=== PATIENT | female | born 1950 | race Caucasian/White ===

== ENCOUNTER → 2016-09-02 | Outpatient (CLI) | payer MEDICARE ==
[~2016-09-02] MED LIST: /ONDA4TA OR; /WARF25TA OR; ACET65TA OR; CELE1CAP7; COMB0.2S OP; MULTIVIT PO; OMEP20TA7 OR; PANT40TA2 PO; PERC5TAB8 OR; PERC7.5T8 OR; ZOCO40TA OR
--- NOTE | 2016-09-02 11:23 | REPMRS ---
Patient History The patient states she had a clinical breast exam in 08/2016. Patient is postmenopausal. Family history of prostate cancer in father at age 50 or over, colorectal cancer in 2 brothers at age 50 or over, and prostate cancer in 2 other brothers at age 50 or over. Took estrogen for 3 years. Digital Woman Screen Mammo: September 02, 2016 - Exam #: [id number] Bilateral CC and MLO view(s) were taken. Technologist: Debbie Daniel Technologist Prior study comparison: August 12, 2015, digital woman screen mammo performed at [facility]. June 11, 2014, digital woman screen mammo performed at [facility]. June 19, 2013, digital woman screen mammo performed at [facility]. FINDINGS: The breast tissue is almost entirely fat. There has been no change in the appearance of the mammogram from the prior studies. There is no interval development of dominant mass, architectural distortion, or clustered microcalcification typical of malignancy. ASSESSMENT: BI-RADS/ACR category 1 mammogram. Negative. Recommendation Routine screening mammogram of both breasts in 1 year (for women over age 40). This mammogram was interpreted with the aid of an FDA-approved computer-aided dectection system. Electronically Signed By: Dakota Newman MD 09/02/16 [id number]
== END ==
LOC: M WHC 09:51
PROVIDERS: ATTEND Nurse Practitioner Family
DX: Z12.31 Encounter for screening mammogram for malignant neoplasm of breast (principal); Z78.0 Asymptomatic menopausal state; Z80.42 Family history of malignant neoplasm of prostate

== ENCOUNTER → 2016-09-02 | Outpatient (CLI) | payer MEDICARE ==
--- NOTE | 2016-09-05 09:06 | DEXA ---
AP SPINE L1 - L4 1.682 3.9 4.8 LT FEMUR TOTAL 0.939 -0.5 0.2 RT FEMUR TOTAL 0.990 -0.1 0.6 TOTAL BODY TOTAL OTHER DUAL FEMUR FRAX* ASSESSMENT Risk factors: None. 10 year probability of fracture Major osteoporotic fracture 7.8 % Hip fracture 0.7 % COMMENTS: Normal bone densitometry of the spine. There is low bone density of the hips. There is degenerative change in the spine which may artificially elevate the BMD. The density of the spine has increased 21.5% since the initial exam on 2002. The spine density has increased 2.6% since the most recent exam on 06/19/2013. The density of the left hip has decreased 3.4% since the initial exam on 2012. The density of the right hip has increased 0.3% since the initial exam on 2012. FOLLOW-UP: Recommendation for the next bone density exam: 2 years. DANIELLE
== END ==
LOC: M WHC 10:03
PROVIDERS: ATTEND Internal Medicine
DX: Z12.31 Encounter for screening mammogram for malignant neoplasm of breast (principal); M85.80 Other specified disorders of bone density and structure, unspecified site; Z78.0 Asymptomatic menopausal state; Z80.42 Family history of malignant neoplasm of prostate
CPT/HCPCS: 77080; G0202

== ENCOUNTER → 2016-11-14 | Outpatient (REF) | payer MEDICARE | LOC: M LAB REF 20:01 | PROVIDERS: ATTEND Physician Assistant | DX: S33.5XXA Sprain of ligaments of lumbar spine, initial encounter (principal); X58.XXXA Exposure to other specified factors, initial encounter; Y92.9 Unspecified place or not applicable; Y93.9 Activity, unspecified; Y99.9 Unspecified external cause status ==

== ENCOUNTER → 2016-12-21 | Outpatient (REF) | payer MEDICARE | LOC: M LAB REF 09:06 | PROVIDERS: ATTEND Physician Assistant | DX: R30.0 Dysuria (principal) ==

== ENCOUNTER 2017-04-13 14:33 | Emergency (ER) | payer MEDICARE ==
[~2017-04-13] VITALS: Ht 149.9 cm; Wt 79.5 kg
[2017-04-13] MEDS ORDERED: ACET-645 (14:42)
[2017-04-13] MEDS ORDERED: BIMA01SOL (14:42)
[2017-04-13] MEDS ORDERED: CELE1CAP9 (14:42)
[2017-04-13] MEDS ORDERED: PERCOCET 5MG/325MG TAB PO ONE (17:15)
--- NOTE | 2017-04-13 18:03 | REP ---
REASON: Pain and swelling. TECHNIQUE: Multiple ultrasonographic images of the deep venous structures of the left thigh were obtained from the common femoral vein to the popliteal vein along with Doppler interrogation and color flow Doppler images. FINDINGS: There is no abnormal echogenic material seen within any of the visualized deep venous structures that would suggest acute thrombosis. Coaptation is unremarkable throughout. Doppler interrogation shows an expected response to respiratory variability and augmentation. The color flow images show what appears to be a normal vascular pattern throughout. IMPRESSION: There is no ultrasonographic evidence of deep venous thrombosis involving any of the visualized deep venous structures of the left thigh, as described above. Signed by Burton France DO 04/13/2017 07:54 P
[2017-04-13 18:39] VITALS: BP 157/89
== END 2017-04-13 18:50 | disposition home or self-care (01) ==
LOC: M ED 14:33
DX: M25.562 Pain in left knee (principal); E78.5 Hyperlipidemia, unspecified; K57.90 Diverticulosis of intestine, part unspecified, without perforation or abscess without bleeding; K44.9 Diaphragmatic hernia without obstruction or gangrene; Z87.442 Personal history of urinary calculi; K21.9 Gastro-esophageal reflux disease without esophagitis; M48.00 Spinal stenosis, site unspecified; Z79.899 Other long term (current) drug therapy

== ENCOUNTER → 2017-07-01 | Outpatient (REF) | payer MEDICARE | LOC: M LAB REF 19:28 | DX: J02.9 Acute pharyngitis, unspecified (principal) | CPT/HCPCS: 87077 ==

== ENCOUNTER → 2017-07-10 | Outpatient (CLI) | payer MEDICARE ==
[2017-07-10 12:52] LABS: HEMATOCRIT 39.9 % (36.0-47.0); HEMOGLOBIN 12.8 g/dl (12.0-16.0); MEAN CORPUSCULAR HGB CONC 32.1 g/dl (32.0-36.5); MEAN CORPUSCULAR VOLUME 90.5 fl (80.0-96.0); PLATELET COUNT, AUTOMATED 291 10^3/uL (150-450); RED BLOOD COUNT 4.41 10^6/uL (4.00-5.40); WHITE BLOOD COUNT 6.1 10^3/uL (4.0-10.0)
[2017-07-10 13:02] LABS: AMORPHOUS SEDIMENT SMALL (NEGATIVE); APPEARANCE, URINE CLOUDY (CLEAR); BACTERIA, URINE AUTO 2+ (NEGATIVE); BILIRUBIN, URINE AUTO NEGATIVE (NEGATIVE); BLOOD, URINE BLOOD NEGATIVE (NEGATIVE); COLOR, URINE YELLOW (YELLOW); GLUCOSE, URINE (UA) AUTO NEGATIVE (NEGATIVE); KETONE, URINE AUTO NEGATIVE (NEGATIVE); LEUKOCYTE ESTERASE, URINE AUTO 3+ (NEGATIVE); NITRITE, URINE AUTO NEGATIVE (NEGATIVE); PROTEIN, URINE AUTO NEGATIVE (NEGATIVE); RBC, URINE AUTO 2 /HPF (0-3); SPECIFIC GRAVITY URINE AUTO 1.011 (1.002-1.035); SQUAMOUS EPITHELIAL CELL UR AU 0 /HPF (0-6); UROBILINOGEN, URINE AUTO 0.2 mg/dL (0.0-2.0); WBC, URINE AUTO 35 /HPF (0-3)
[2017-07-10 13:05] LABS: INR 0.99; PROTHROMBIN TIME 13.2 SECONDS (12.4-14.5)
[2017-07-10 13:13] LABS: ALBUMIN 3.4 GM/DL (3.2-5.2); ALKALINE PHOSPHATASE 70 U/L (45-117); ALT/SGPT 18 U/L (12-78); ANION GAP 6 MEQ/L (8-16); AST/SGOT 20 U/L (7-37); BILIRUBIN,TOTAL 0.8 MG/DL (0.2-1.0); BLOOD UREA NITROGEN 12 MG/DL (7-18); CALCIUM LEVEL 8.9 MG/DL (8.8-10.2); CARBON DIOXIDE LEVEL 32 MEQ/L (21-32); CHLORIDE LEVEL 101 MEQ/L (98-107); CREATININE FOR GFR 0.49 MG/DL (0.55-1.02); GLOMERULAR FILTRATION RATE > 60.0 (>45); GLUCOSE, FASTING 85 MG/DL (80-110); POTASSIUM SERUM 3.6 MEQ/L (3.5-5.1); SODIUM LEVEL 139 MEQ/L (136-145); TOTAL PROTEIN 6.8 GM/DL (6.4-8.2)
[2017-07-10 14:13] LABS: ERYTHROCYTE SEDIMENTATION RATE 30 mm/hr (0-30)
== END ==
LOC: M ADMPAT 10:08
DX: Z01.818 Encounter for other preprocedural examination (principal); M17.12 Unilateral primary osteoarthritis, left knee; Z79.899 Other long term (current) drug therapy
CPT/HCPCS: 71046

== ENCOUNTER 2017-07-24 06:27 | Inpatient (IN) | payer MEDICARE ==
[2017-07-24] MEDS: LR 1,000 ML IV ×3 (07:13→11:45)
[2017-07-24] MEDS ORDERED: MIDAZOLAM INJ 2 MG/2 ML VIAL (J2250) As Ordered ×2 (07:27→08:05)
[2017-07-24] MEDS ORDERED: fentaNYL 100 MCG/2 ML INJECTION (J3010) As Ordered ×2 (07:27→08:05)
[2017-07-24] MEDS ORDERED: LIDOCAINE 2% INJ 100 MG/5 ML SDV (FOR ANES.) As Ordered (08:04)
[2017-07-24] MEDS ORDERED: ePHEDrine INJ 50 MG/ML VIAL As Ordered (08:04)
[2017-07-24] MEDS ORDERED: PROPOFOL 500 MG/50 ML VIAL As Ordered (08:04)
[2017-07-24] MEDS: fentaNYL 100 MCG/2 ML INJECTION (J3010) IV (08:12)
[2017-07-24] MEDS: MIDAZOLAM INJ 2 MG/2 ML VIAL (J2250) IV (08:12)
[2017-07-24] MEDS: ceFAZolin 1GM INJ (J0690 PER 500MG) As Ordered (09:26)
[2017-07-24] MEDS: EPINEPHrine INJ 1 MG/ML 1ML AMP As Ordered (09:27)
[2017-07-24] MEDS: TRANEXAMIC ACID 100 MG/ML 10ML VIAL As Ordered (09:27)
[2017-07-24] MEDS ORDERED: dexameTHASONE 10 MG/1 ML VIAL PRES.FREE (J1100) (09:55)
[2017-07-24] MEDS ORDERED: ROPIvacaine 0.5% 30 ML INJECTION (J2795 PER 1MG) (09:55)
[2017-07-24] MEDS ORDERED: LIDOCAINE 1% MDV 20ML VIAL (09:55)
[2017-07-24] MEDS: BUPIVACAINE LIPOSOME/PF 1.3% 20 ML VIAL (13.3MG/ML)(EXPAREL) As Ordered (10:10)
[2017-07-24] MEDS ORDERED: PROPOFOL 200 MG/20 ML VIAL As Ordered (10:16)
[2017-07-24] MEDS ORDERED: MORPHINE 1MG/ML IN 0.9% NACL 100ML IV BAG As Ordered (10:46)
[2017-07-24] MEDS ORDERED: ONDANSETRON 4MG/2ML VIAL (J2405) IV ×2 (11:45→12:00)
[2017-07-24] MEDS ORDERED: HYDROmorphone HCL 1 MG/ML SYRINGE (J1170) IV (11:45)
[2017-07-24] MEDS ORDERED: fentaNYL 100 MCG/2 ML INJECTION (J3010) IV (11:45)
[2017-07-24] MEDS ORDERED: PERCOCET 5MG/325MG TAB PO (11:45)
[2017-07-24] MEDS ORDERED: ACETAMINOPHEN TAB 650MG DOSE (2X325MG) PO (12:00)
[2017-07-24] MEDS ORDERED: FLEET ENEMA PR (12:00)
[2017-07-24] MEDS ORDERED: EPIDURAL/PCA KEYS XX (12:15)
[2017-07-24] MEDS ORDERED: NALOXONE INJ 0.4 MG/1 ML VIAL (J2310) IV (12:15)
[2017-07-24] MEDS ORDERED: MORPHINE 1MG/ML IN 0.9% NACL 100ML IV BAG IV (12:15)
[2017-07-24] MEDS ORDERED: NALBUPHINE HCL 10 MG/ML AMP (J2300) IV (12:15)
[2017-07-24] MEDS ORDERED: diphenhydrAMINE INJ 50MG/ML VIAL (J1200) IV (12:15)
[2017-07-24] MEDS: WARFARIN SOD 5 MG TAB PO (17:11)
[2017-07-24] MEDS: CEFAZOLIN SOD 1 GM in APPROPRIATE DILUENT 1 EA IV (17:11)
[2017-07-24] MEDS: ONDANSETRON 4MG/2ML VIAL (J2405) IV (18:19)
[2017-07-24] MEDS: BRIMONIDINE 0.15% OPHTH SOLN 5 ML OU (20:24)
[2017-07-24] MEDS: LATANOPROST 0.005% OPHTH SOLN 2.5 ML OU (20:24)
[2017-07-24] MEDS: SIMVASTATIN 40 MG TAB PO (20:24)
[2017-07-24] MEDS: TIMOLOL MALEATE 0.5% OPHTH SOLN 5 ML OU (20:24)
[2017-07-25] MEDS: ONDANSETRON 4MG/2ML VIAL (J2405) IV (00:01)
[2017-07-25] MEDS: LR 1,000 ML IV (00:02)
[2017-07-25] MEDS: CEFAZOLIN SOD 1 GM in APPROPRIATE DILUENT 1 EA IV (00:02)
[2017-07-25 07:10] LABS: HEMATOCRIT 38.2 % (36.0-47.0); HEMOGLOBIN 12.4 g/dl (12.0-16.0); MEAN CORPUSCULAR HEMOGLOBIN 29.2 pg (27.0-33.0); MEAN CORPUSCULAR HGB CONC 32.5 g/dl (32.0-36.5); MEAN CORPUSCULAR VOLUME 90.1 fl (80.0-96.0); PLATELET COUNT, AUTOMATED 237 10^3/uL (150-450); RED BLOOD COUNT 4.24 10^6/uL (4.00-5.40); RED CELL DISTRIBUTION WIDTH 13.2 % (11.5-14.5); WHITE BLOOD COUNT 6.4 10^3/uL (4.0-10.0)
[2017-07-25 07:20] LABS: INR 1.26; PROTHROMBIN TIME 16.1 SECONDS (12.4-14.5)
[2017-07-25 07:32] LABS: ANION GAP 8 MEQ/L (8-16); BLOOD UREA NITROGEN 14 MG/DL (7-18); CALCIUM LEVEL 9.1 MG/DL (8.8-10.2); CARBON DIOXIDE LEVEL 31 MEQ/L (21-32); CHLORIDE LEVEL 100 MEQ/L (98-107); CREATININE FOR GFR 0.76 MG/DL (0.55-1.02); GLOMERULAR FILTRATION RATE > 60.0 (>45); GLUCOSE, FASTING 113 MG/DL (70-100); POTASSIUM SERUM 3.6 MEQ/L (3.5-5.1); SODIUM LEVEL 139 MEQ/L (136-145)
[2017-07-25] MEDS: MOM 30ML SUSPENSION UDC PO (09:10)
[2017-07-25] MEDS: MIRALAX *UNIT DOSE* 17GM PACKET PO (09:10)
[2017-07-25] MEDS: SENOKOT S TAB PO ×2 (09:10→20:20)
[2017-07-25] MEDS: PERCOCET 5MG/325MG TAB PO ×2 (09:10→15:51)
[2017-07-25] MEDS: PANTOPRAZOLE 40MG TAB (PROTONIX) PO (09:10)
[2017-07-25] MEDS: ONDANSETRON 4 MG TAB (S0181) PO (09:10)
[2017-07-25] MEDS: TIMOLOL MALEATE 0.5% OPHTH SOLN 5 ML OU ×2 (09:12→20:21)
[2017-07-25] MEDS: BRIMONIDINE 0.15% OPHTH SOLN 5 ML OU ×2 (09:12→20:21)
[2017-07-25] MEDS ORDERED: ONDANSETRON 4MG/2ML VIAL (J2405) IV (10:45)
[2017-07-25] MEDS: MORPHINE 15 MG SA TAB PO (10:57)
[2017-07-25] MEDS: MORPHINE 4 MG/ML 1ML SYRINGE IV (15:04)
[2017-07-25] MEDS: WARFARIN SOD 5 MG TAB PO (17:08)
[2017-07-25] MEDS: KETOROLAC 30 MG/ML VIAL (J1885) IV (17:08)
[2017-07-25] MEDS: SIMVASTATIN 40 MG TAB PO (20:20)
[2017-07-25] MEDS: MORPHINE 30 MG SA TAB PO (20:21)
[2017-07-25] MEDS: LATANOPROST 0.005% OPHTH SOLN 2.5 ML OU (20:22)
[2017-07-26] MEDS: PERCOCET 5MG/325MG TAB PO ×2 (05:09→10:31)
[2017-07-26] MEDS: PANTOPRAZOLE 40MG TAB (PROTONIX) PO (06:30)
[2017-07-26 06:41] LABS: HEMATOCRIT 32.9 % (36.0-47.0); HEMOGLOBIN 10.7 g/dl (12.0-16.0); MEAN CORPUSCULAR HEMOGLOBIN 29.7 pg (27.0-33.0); MEAN CORPUSCULAR HGB CONC 32.5 g/dl (32.0-36.5); MEAN CORPUSCULAR VOLUME 91.4 fl (80.0-96.0); PLATELET COUNT, AUTOMATED 180 10^3/uL (150-450); RED CELL DISTRIBUTION WIDTH 13.1 % (11.5-14.5); WHITE BLOOD COUNT 6.6 10^3/uL (4.0-10.0)
[2017-07-26 06:51] LABS: INR 2.01; PROTHROMBIN TIME 23.5 SECONDS (12.4-14.5)
[2017-07-26 07:07] LABS: ANION GAP 4 MEQ/L (8-16); BLOOD UREA NITROGEN 18 MG/DL (7-18); CALCIUM LEVEL 8.7 MG/DL (8.8-10.2); CARBON DIOXIDE LEVEL 33 MEQ/L (21-32); CHLORIDE LEVEL 102 MEQ/L (98-107); CREATININE FOR GFR 0.71 MG/DL (0.55-1.02); GLOMERULAR FILTRATION RATE > 60.0 (>45); GLUCOSE, FASTING 99 MG/DL (70-100); POTASSIUM SERUM 3.8 MEQ/L (3.5-5.1); SODIUM LEVEL 139 MEQ/L (136-145)
[2017-07-26] MEDS: MOM 30ML SUSPENSION UDC PO (08:23)
[2017-07-26] MEDS: MORPHINE 30 MG SA TAB PO (08:24)
[2017-07-26] MEDS: SENOKOT S TAB PO (08:24)
[2017-07-26] MEDS: BRIMONIDINE 0.15% OPHTH SOLN 5 ML OU (08:24)
[2017-07-26] MEDS: MIRALAX *UNIT DOSE* 17GM PACKET PO (08:24)
[2017-07-26] MEDS: TIMOLOL MALEATE 0.5% OPHTH SOLN 5 ML OU (08:25)
== END 2017-07-26 10:44 | disposition home health service (06) | DRG 470 ==
LOC: M OR 06:27 → M MS5PR 13:55
PROC: 0SRD0J9 Replacement of Left Knee Joint with Synthetic Substitute, Cemented, Open Approach (ICD-10-PCS; principal; 2017-07-24 08:30)
DX: M17.12 Unilateral primary osteoarthritis, left knee (principal); K21.9 Gastro-esophageal reflux disease without esophagitis; E78.00 Pure hypercholesterolemia, unspecified; H40.9 Unspecified glaucoma; M48.061 Spinal stenosis, lumbar region without neurogenic claudication

== ENCOUNTER → 2017-10-31 | Outpatient (CLI) | payer MEDICARE | LOC: M WHC 10:02 | DX: Z12.31 Encounter for screening mammogram for malignant neoplasm of breast (principal); Z01.419 Encounter for gynecological examination (general) (routine) without abnormal findings (principal); Z78.0 Asymptomatic menopausal state; Z92.23 Personal history of estrogen therapy; Z12.12 Encounter for screening for malignant neoplasm of rectum | CPT/HCPCS: 77067 ==

== ENCOUNTER → 2018-11-06 | Outpatient (CLI) | payer MEDICARE ==
[~2018-11-06] MED LIST changes: -/ONDA4TA OR; -/WARF25TA OR; +ACET-645; +BIMA01SOL; +CALCTAB68 PO; +CELE1CAP9; +CINN500C9 PO; -COMB0.2S OP; +COMB0.2S OU; +COUM1TAB18 OR; +COUM2.5T17 PO; +GARL1000 PO; +MULT1TAB10 PO; +ONDA-1 OR; -PANT40TA2 PO; +PANT40TA3 PO; +PERC5TAB12 PO; +VITA400C7 PO; +VITA500T PO
--- NOTE | 2018-11-06 16:31 | REPMRS ---
Patient History The patient states she had a clinical breast exam in 10/2018. Family history of colorectal cancer at age 50 or over in brother, prostate cancer at age 50 or over in brother, colorectal cancer and prostate cancer at age 50 or over in brother, prostate cancer at age 50 or over in father. Took estrogen for 3 years. 3D TOMOSYNTHESIS WAS PERFORMED. Digital Woman Screen Mammo: November 06, 2018 - Exam #: [id number] Bilateral CC and MLO view(s) were taken. Technologist: Fabi Diaz, Technologist Prior study comparison: October 31, 2017, digital woman screen mammo performed at [facility]. September 02, 2016, digital woman screen mammo performed at [facility] [employer]. FINDINGS: There are scattered fibroglandular densities. There has been no change in the appearance of the mammogram from the prior studies. There is a mild amount of residual fibroglandular tissue which is fairly symmetric. There is no interval development of dominant mass, architectural distortion, or clustered microcalcification suggestive of malignancy. Assessment: BI-RADS/ACR category 1 mammogram. Negative Mammogram. Recommendation Routine screening mammogram in 1 year (for women over age 40). This mammogram was interpreted with the aid of an FDA-approved computer-aided dectection system. Electronically Signed By: Oliver Fraire MD 11/06/18 [id number]
== END ==
LOC: M WHC 14:21
PROVIDERS: ATTEND Nurse Practitioner Family
DX: Z12.31 Encounter for screening mammogram for malignant neoplasm of breast (principal); Z92.23 Personal history of estrogen therapy; Z80.0 Family history of malignant neoplasm of digestive organs

== ENCOUNTER → 2018-12-18 | Outpatient (REF) | payer MEDICARE ==
[2018-12-19 18:16] LABS: FOLATE > 24.0 NG/ML; VITAMIN B12 LEVEL > 2000 PG/ML
== END ==
LOC: M LAB REF 17:14
PROVIDERS: ATTEND Internal Medicine
DX: G60.9 Hereditary and idiopathic neuropathy, unspecified (principal)

== ENCOUNTER → 2019-04-12 | Outpatient (REF) | payer MEDICARE ==
[2019-04-12 13:46] LABS: HEMOGLOBIN A1c 5.9 %
[2019-04-12 14:01] LABS: FOLATE > 24.0 NG/ML (>5.4); FREE T4 0.99 NG/DL (0.76-1.46); RHEUMATOID FACTOR QUANT < 10.0 IU/ML (<15.0); TOTAL PROTEIN 6.6 GM/DL (6.4-8.2); VITAMIN B12 LEVEL > 2000 PG/ML (247-911)
[2019-04-16 11:23] LABS: DRVV SCREEN 38.3 SEC
[2019-04-16 11:49] LABS: PTT LUPUS TYPE ANTICOAG SCREEN 0.9 (0-1.2)
[2019-04-16 14:26] LABS: ALBUMIN 3.97 GM/DL (3.29-5.55); ALBUMIN % 60.2 % (55.8-66.1); ALPHA-1-GLOBULIN % 3.7 % (2.9-4.9); ALPHA-1-GLOBULINS 0.24 GM/DL (0.17-0.41); ALPHA-2-GLOBULINS 0.75 GM/DL (0.42-0.99); ALPHA-2-GLOBULINS % 11.4 % (7.1-11.8); BETA-1-GLOBULINS 0.42 GM/DL (0.28-0.60); BETA-1-GLOBULINS % 6.4 % (4.7-7.2); BETA-2-GLOBULINS 0.35 GM/DL (0.19-0.55); BETA-2-GLOBULINS % 5.3 % (3.2-6.5); GAMMA GLOBULINS 0.86 GM/DL (0.65-1.58)
[2019-04-18 00:08] LABS: ANTINUCLEAR ANTIBODIES DIRECT Negative (Negative); LEAD BLOOD ADULT 2 ug/dL (0-4); MERCURY LEVEL None Detected ug/L (0.0-14.9); VITAMIN B1 LEVEL WHOLE BLOOD 156.7 nmol/L (66.5-200.0); VITAMIN B6,PYRIDOXAL PHOSPHATE 47.6 ug/L (2.0-32.8); VITAMIN E(GAMMA TOCOPHEROL) 0.3 mg/L (0.5-4.9)
== END ==
LOC: M LABNEURO 11:02
PROVIDERS: ATTEND Psychiatry & Neurology Neurology
DX: G62.9 Polyneuropathy, unspecified (principal); M54.5 Low back pain; M25.511 Pain in right shoulder; Z79.899 Other long term (current) drug therapy

== ENCOUNTER → 2019-04-18 | Outpatient (CLI) | payer MEDICARE ==
--- NOTE | 2019-04-18 13:56 | REP ---
Right shoulder series: Three views. History: Shoulder pain for 2 years. No comparison shoulder radiographs. Findings: Three views of the right shoulder demonstrate advanced osteoarthritis of the glenohumeral articulation with glenohumeral spur formation. There is narrowing of the subacromial space indicating obliteration of the rotator cuff. There is mild AC joint osteoarthritis. Diffuse osteopenia is noted. 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 There is mild AC joint osteoarthritis. Diffuse osteopenia. Electronically Signed by Colt Newman MD 04/18/2019 06:25 P
== END ==
LOC: M WUC 08:57
PROVIDERS: ATTEND Psychiatry & Neurology Neurology
DX: M19.041 Primary osteoarthritis, right hand (principal); M85.811 Other specified disorders of bone density and structure, right shoulder

== ENCOUNTER → 2019-11-08 | Outpatient (CLI) | payer MEDICARE ==
[~2019-11-08] MED LIST changes: +VITA-243 PO; -VITA500T PO
[2019-11-08 14:32] LABS: BLOOD UREA NITROGEN 22 MG/DL (7-18); CREATININE FOR GFR 0.62 MG/DL (0.55-1.30); GLOMERULAR FILTRATION RATE > 60.0 (>39)
== END ==
LOC: M WUC 11:09
PROVIDERS: ATTEND Physician Assistant
DX: M19.011 Primary osteoarthritis, right shoulder (principal)

== ENCOUNTER → 2019-11-08 | Outpatient (CLI) | payer MEDICARE ==
--- NOTE | 2019-11-08 11:04 | REPMRS ---
Patient History The patient states she had a clinical breast exam in November 2019.Family history of colorectal cancer at age 50 or over in brother, prostate cancer at age 50 or over in brother, colorectal cancer and prostate cancer at age 50 or over in brother, prostate cancer at age 50 or over in father. Took estrogen for 3 years. Digital Woman Screen Mammo: November 08, 2019 - Exam #: [id number] Bilateral CC and MLO view(s) were taken. Technologist: Gail Eduardo, Technologist Prior study comparison: November 06, 2018, bilateral digital woman screen mammo performed at [facility]. October 31, 2017, digital woman screen mammo performed at [facility]. September 02, 2016, digital woman screen mammo performed at [facility]. FINDINGS: The breast tissue is almost entirely fat. The Volpara volumetric breast density category is: A. There has been no change in the appearance of the mammogram from the prior studies. There is no interval development of dominant mass, architectural distortion, or grouped microcalcification typical of malignancy. 3-D tomosynthesis shows no additional findings. Assessment: BI-RADS/ACR category 1 mammogram. Negative Mammogram. Recommendation Routine screening mammogram of both breasts in 1 year (for women over age 40). This patient's Lifetime Breast Cancer RIsk is estimated at 4.0 %. This mammogram was interpreted with the aid of an FDA-approved computer-aided dectection system. Electronically Signed By: Dakota Newman MD 11/08/19 [id number]
== END ==
LOC: M WHC 09:21
PROVIDERS: ATTEND Nurse Practitioner Family
DX: Z12.31 Encounter for screening mammogram for malignant neoplasm of breast (principal); Z78.0 Asymptomatic menopausal state; Z80.0 Family history of malignant neoplasm of digestive organs; Z80.42 Family history of malignant neoplasm of prostate; Z92.23 Personal history of estrogen therapy

== ENCOUNTER 2020-03-13 21:52 | Emergency (ER) | payer MEDICARE ==
[~2020-03-13] VITALS: Ht 149.9 cm; Wt 84.1 kg
[~2020-03-13 21:52] MED LIST changes: +PANT40TA29 PO; -PANT40TA3 PO
[2020-03-13] MEDS ORDERED: META1TAB22 PO (22:08)
[2020-03-13] MEDS ORDERED: TRAM50TA2 PO (22:08)
[2020-03-13 22:32] LABS: BASO % 0.6 % (0.0-1.0); EOS # 0.2 10^3/uL (0.0-0.5); EOS % 3.6 % (0.0-3.0); HEMOGLOBIN 13.8 g/dl (12.0-15.5); LYMPH # 1.7 10^3/uL (1.5-5.0); LYMPH % 30.9 % (24.0-44.0); MEAN CORPUSCULAR HEMOGLOBIN 30.8 pg (27.0-33.0); MEAN CORPUSCULAR HGB CONC 32.1 g/dl (32.0-36.5); MONO # 0.5 10^3/uL (0.0-0.8); MONO % 9.2 % (0.0-5.0); NEUTROPHILS % 55.5 % (36.0-66.0); PLATELET COUNT, AUTOMATED 225 10^3/uL (150-450); RED BLOOD COUNT 4.48 10^6/uL (4.00-5.40); WHITE BLOOD COUNT 5.3 10^3/uL (4.0-10.0)
[2020-03-13 23:09] LABS: ALBUMIN 3.7 GM/DL (3.2-5.2); BILIRUBIN,DIRECT 0.2 MG/DL (0.0-0.2); BILIRUBIN,TOTAL 0.6 MG/DL (0.2-1.0); TOTAL PROTEIN 7.2 GM/DL (6.4-8.2)
[2020-03-13] MEDS ORDERED: LIDOCAINE 5% (LIDODERM) PATCH TD ONE (23:15)
--- NOTE | 2020-03-13 23:43 | REPVR ---
PROCEDURE INFORMATION: Exam: CT Abdomen And Pelvis Without Contrast Exam date and time: 03/13/2020 11:11 PM Age: 69 years old Clinical indication: Abdominal pain; Flank; Right; Additional info: R flank pain TECHNIQUE: Imaging protocol: Computed tomography of the abdomen and pelvis without contrast. Radiation optimization: All CT scans at this facility use at least one of these dose optimization techniques: automated exposure control; mA and/or kV adjustment per patient size (includes targeted exams where dose is matched to clinical indication); or iterative reconstruction. COMPARISON: No relevant prior studies available. FINDINGS: Lungs: Minimal bilateral lower lobe fibro-atelectatic change. Liver: Normal. No mass. Gallbladder and bile ducts: The gallbladder is somewhat contracted with no stones. Pancreas: Minimal coarse calcification in the pancreatic body. Spleen: Normal. No splenomegaly. Adrenals: Normal. No mass. Kidneys and ureters: Punctate nonobstructing right renal calculus. Lobular kidneys, right greater than left. No ureteral calculi are evident. Stomach and bowel: There is colonic diverticulosis without evidence of diverticulitis. Appendix: A normal appendix is seen. Intraperitoneal space: Unremarkable. No free air. No significant fluid collection. Vasculature: Unremarkable. No abdominal aortic aneurysm. Lymph nodes: Unremarkable. No enlarged lymph nodes. Bladder: Unremarkable as visualized. Reproductive: Unremarkable as visualized. Bones/joints: Degenerative changes of the lumbar spine with facet arthropathy and grade 1 anterolisthesis of L4 relative to L5 and to a lesser degree L5 relative to S1. Lumbar dextroscoliosis. Soft tissues: Unremarkable. IMPRESSION: 1. Punctate nonobstructing right renal calculus. No ureteral calculi are evident and there is no evidence of obstructive uropathy. 2. Colonic diverticulosis without diverticulitis. 3. Otherwise negative CT abdomen/pelvis. Electronically signed by: Aaron Restrepo On 03/13/2020 23:43:31 PM
[2020-03-14] MEDS ORDERED: methocarbamoL 750 MG TAB PO ONE (00:15)
[2020-03-14] MEDS ORDERED: KETOROLAC 30 MG/ML 1ML VIAL IV ONE (00:15)
[2020-03-14] MEDS ORDERED: ROBA750T4 PO (00:19)
[2020-03-14] MEDS ORDERED: METHOCARBAMOL 1,000 MG/10 ML VIAL (J2800) IV ONE (00:45)
[2020-03-14 01:15] VITALS: BP 160/75
[2020-03-14] MEDS ORDERED: **NOTE PATIENT COMMENT** MISC XX ONE (11:15)
== END 2020-03-14 01:27 | disposition home or self-care (01) ==
LOC: M ED 21:52
DX: M54.9 Dorsalgia, unspecified (principal); E78.5 Hyperlipidemia, unspecified; K21.9 Gastro-esophageal reflux disease without esophagitis; K57.30 Diverticulosis of large intestine without perforation or abscess without bleeding; N20.0 Calculus of kidney; Z79.899 Other long term (current) drug therapy
CPT/HCPCS: 74176; 80047; 80076; 81001; 83690; 85025; 87088; 87186; 96374; 96375; 99284; J1885; J2800

== ENCOUNTER → 2020-03-17 | Outpatient (REF) | payer MEDICARE ==
[~2020-03-17] MED LIST changes: +META1TAB22 PO; +ROBA750T4 PO; +TRAM50TA2 PO
== END ==
LOC: M LAB REF 12:10
PROVIDERS: ATTEND Physician Assistant Medical
DX: N39.0 Urinary tract infection, site not specified (principal)

== ENCOUNTER → 2020-03-30 | Outpatient (REF) | payer MEDICARE | LOC: M LAB REF 16:32 | PROVIDERS: ATTEND Physician Assistant Medical | DX: N39.0 Urinary tract infection, site not specified (principal) ==

== ENCOUNTER → 2020-10-07 | Outpatient (CLI) | payer MEDICARE | LOC: M LABSMTC 09:56 | PROVIDERS: ATTEND Anesthesiology | DX: Z20.822 Contact with and (suspected) exposure to COVID-19 (principal) ==

== ENCOUNTER 2020-10-12 06:33 | Day surgery (SDC) | payer MEDICARE ==
[~2020-10-12] VITALS: Ht 149.9 cm; Wt 85.7 kg
[2020-10-12] MEDS ORDERED: NS 1,000 ML IV ONE (07:00)
[2020-10-12] MEDS ORDERED: SIMETHICONE 40MG/0.6ML DROPS 30ML As Ordered ONE (07:08)
[2020-10-12] MEDS ORDERED: propofoL 200 MG/20 ML VIAL As Ordered ONE (07:27)
[2020-10-12] MEDS ORDERED: LIDOCAINE 2% 100MG/5ML SDV (FOR ANES.) As Ordered ONE (07:27)
--- NOTE | 2020-10-12 07:49 | ROOR ---
Patient Name: Laura Glover Procedure Date: 10/12/2020 7:31 AM Date of : 1950 Age: 70 Room: [facility] Gender: Female Note Status: Finalized Procedure: Total Colonoscopy to Cecum Indications: Colon cancer screening in patient at increased risk: Colorectal cancer in brother, High risk colon cancer surveillance: Personal history of colonic polyps Providers: Keaton Ronquillo MD Referring MD: RITA MILLARD JR, MD Requesting Provider: Medicines: Monitored Anesthesia Care Complications: No immediate complications. Procedure: Pre-Anesthesia Assessment: - The heart rate, respiratory rate, oxygen saturations, blood pressure, adequacy of pulmonary ventilation, and response to care were monitored throughout the procedure. The Colonoscope was introduced through the anus and advanced to the cecum, identified by appendiceal orifice and ileocecal valve. The colonoscopy was performed without difficulty. The patient tolerated the procedure well. The quality of the bowel preparation was excellent. Findings: The perianal and digital rectal examinations were normal. Non-bleeding internal hemorrhoids were found during retroflexion. The hemorrhoids were small and Grade I (internal hemorrhoids that do not prolapse). Multiple small and large-mouthed diverticula were found in the recto-sigmoid colon, sigmoid colon and descending colon. The exam was otherwise without abnormality on direct and retroflexion views. Impression: - Non-bleeding internal hemorrhoids. - Diverticulosis in the recto-sigmoid colon, in the sigmoid colon and in the descending colon. - The examination was otherwise normal on direct and retroflexion views. - No specimens collected. - The exam was otherwise normal to the cecum. Recommendation: - Patient has a contact number available for emergencies. The signs and symptoms of potential delayed complications were discussed with the patient. Return to normal activities tomorrow. Written discharge instructions were provided to the patient. - High fiber diet. - Discharge patient to home. - Continue present medications. - Repeat colonoscopy in 5 years for screening purposes. - Return to referring physician. - The findings and recommendations were discussed with the patient. Procedure Code(s): --- Professional --- G0105, Colorectal cancer screening; colonoscopy on individual at high risk Diagnosis Code(s): --- Professional --- Z80.0, Family history of malignant neoplasm of digestive organs Z86.010, Personal history of colonic polyps K64.0, First degree hemorrhoids K57.30, Diverticulosis of large intestine without perforation or abscess without bleeding CPT copyright 2019 [employer]. All rights reserved. The codes documented in this report are preliminary and upon hot air furnace installer repairer review may be revised to meet current compliance requirements. Keaton Ronquillo MD Keaton Ronquillo MD 10/12/2020 7:48:32 AM Electronically signed by Keaton Ronquillo MD Number of Addenda: 0 Note Initiated On: 10/12/2020 7:31 AM Estimated Blood Loss: Estimated blood loss: none.
[2020-10-12 08:10] VITALS: BP 196/94
== END 2020-10-12 08:20 | disposition home or self-care (01) ==
LOC: M OPP 06:33
PROVIDERS: ATTEND Internal Medicine Gastroenterology
DX: Z12.11 Encounter for screening for malignant neoplasm of colon (principal); Z86.010 Personal history of colon polyps; Z80.0 Family history of malignant neoplasm of digestive organs; K57.30 Diverticulosis of large intestine without perforation or abscess without bleeding; K64.0 First degree hemorrhoids; Z79.891 Long term (current) use of opiate analgesic; Z79.899 Other long term (current) drug therapy

== ENCOUNTER → 2020-11-17 | Outpatient (CLI) | payer MEDICARE ==
--- NOTE | 2020-11-17 13:10 | REPMRS ---
Patient History The patient states she had a clinical breast exam in October 2020. Family history of colorectal cancer at age 50 or over in brother, prostate cancer at age 50 or over in brother, colorectal cancer and prostate cancer at age 50 or over in brother, prostate cancer at age 50 or over in father. Took estrogen for 3 years. No breast complaints today Patient signed the MRS sheet 1st covid vaccine-left arm-Moderna 2nd covid vaccine-left arm Priors on PACS Patient Identification Verified Digital Woman Screen Mammo: November 17, 2020 - Exam #: [id number] Bilateral CC and MLO view(s) were taken. Technologist: Mirtha Cespedes, Technologist Prior study comparison: November 08, 2019, bilateral digital woman screen mammo performed at [facility]. November 06, 2018, bilateral digital woman screen mammo performed at [facility]. October 31, 2017, digital woman screen mammo performed at [facility]. FINDINGS: The breast tissue is almost entirely fat. The Volpara volumetric breast density category is: A. There has been no change in the appearance of the mammogram from the prior studies. There is no interval development of dominant mass, architectural distortion, or grouped microcalcification typical of malignancy. 3-D tomosynthesis shows no additional findings. Assessment: BI-RADS/ACR category 1 mammogram. Negative Mammogram. Recommendation Routine screening mammogram of both breasts in 1 year (for women over age 40). This patient's [facility] Lifetime Breast Cancer RIsk is estimated at 3.8 %. This mammogram was interpreted with the aid of an FDA-approved computer-aided dectection system. Electronically Signed By: Dakota Newman MD 11/17/20 [id number]
== END ==
LOC: M WHC 10:46
PROVIDERS: ATTEND Nurse Practitioner Women's Health
DX: Z12.31 Encounter for screening mammogram for malignant neoplasm of breast (principal); Z80.0 Family history of malignant neoplasm of digestive organs; Z92.23 Personal history of estrogen therapy

== ENCOUNTER 2021-02-19 08:02 | Inpatient (IN) | payer MEDICARE ==
[~2021-02-19] VITALS: Ht 149.9 cm; Wt 94.9 kg
[~2021-02-19 08:02] MED LIST changes: -BIMA01SOL; +BIMA01SOL OU; -CELE1CAP9; +CELE1CAP9 PO
[2021-02-19] MEDS ORDERED: ACET650T61 PO (08:26)
[2021-02-19] MEDS ORDERED: ONDANSETRON 4MG/2ML VIAL IV ONE (08:35)
[2021-02-19] MEDS ORDERED: NS 500 ML IV ONE (08:35)
[2021-02-19] MEDS: ASCORBIC ACID 500 MG TAB PO SCH ×2 (09:00→21:38)
[2021-02-19] MEDS: MORPHINE 2 MG/ML 1ML VIAL (J2270) IV PRN ×2 (09:02→11:03)
[2021-02-19 09:04] LABS: BASO % 0.2 % (0.0-1.0); EOS % 0.4 % (0.0-3.0); HEMATOCRIT 43.1 % (36.0-47.0); HEMOGLOBIN 13.6 g/dl (12.0-15.5); LYMPH # 0.8 10^3/uL (1.5-5.0); LYMPH % 7.7 % (24.0-44.0); MEAN CORPUSCULAR HEMOGLOBIN 30.1 pg (27.0-33.0); MEAN CORPUSCULAR HGB CONC 31.6 g/dl (32.0-36.5); MEAN CORPUSCULAR VOLUME 95.4 fl (80.0-96.0); MONO # 0.6 10^3/uL (0.0-0.8); NEUTROPHILS # 8.9 10^3/uL (1.5-8.5); NEUTROPHILS % 85.5 % (36.0-66.0); PLATELET COUNT, AUTOMATED 211 10^3/uL (150-450); RED BLOOD COUNT 4.52 10^6/uL (4.00-5.40); WHITE BLOOD COUNT 10.4 10^3/uL (4.0-10.0)
[2021-02-19] MEDS ORDERED: ISOVUE-370 76% 100ML VIAL As Ordered ONE (09:04)
--- NOTE | 2021-02-19 09:38 | REP ---
INDICATION: llq pain COMPARISON: 03/13/2020. TECHNIQUE: CT Scan of the abdomen and pelvis was performed with intravenous administration of 100 cc of Isovue 370, without oral contrast. Sagittal and coronal reconstruction images are performed. FINDINGS: Lung bases: There are mild bibasilar fibro atelectatic changes. Liver: Normal Gallbladder: Unremarkable. Spleen: Normal. Adrenals: Normal. Pancreas: Normal. Kidneys: There is bilateral cortical thinning without hydronephrosis. Small and large bowel: There is extensive diverticulosis of the sigmoid colon. There are findings of associated diverticulitis. There is no free air or abscess. Free fluid: None. Abdominal aorta: No aneurysm or dissection. Adenopathy: None. Appendix: Not inflamed. Osseous structures: There are degenerative changes of the spine without compression deformity. Pelvis: There is a partially calcified uterine fibroid 1.2 cm in diameter. There appears to be a small left femoral hernia containing noninflamed fat. IMPRESSION: Sigmoid diverticulitis. No free fluid or abscess. <Electronically signed by Oliver Fraire > 02/19/21 [id number]
[2021-02-19 09:42] LABS: ALBUMIN 3.6 GM/DL (3.2-5.2); BILIRUBIN,DIRECT 0.3 MG/DL (0.0-0.2); TOTAL PROTEIN 6.8 GM/DL (6.4-8.2)
[2021-02-19] MEDS ORDERED: PIPERACILLIN/TAZOBACTAM SOD 4.5 GM in D5W MINI-BAG PLUS 50 ML IV ONE (10:35)
[2021-02-19] MEDS ORDERED: MORPHINE 2 MG/ML 1ML VIAL (J2270) IV PRN ×2 (10:40→12:05)
[2021-02-19] MEDS ORDERED: CALCCAP4 PO (11:23)
[2021-02-19] MEDS ORDERED: GARL1000 PO (11:23)
[2021-02-19] MEDS ORDERED: VITMTA PO (11:23)
[2021-02-19] MEDS ORDERED: SIMV40TA20 PO (11:23)
[2021-02-19] MEDS ORDERED: CINN500C2 PO (11:23)
[2021-02-19] MEDS ORDERED: TRAM50TA2 PO (11:23)
[2021-02-19] MEDS ORDERED: VITA400C50 PO (11:23)
[2021-02-19] MEDS ORDERED: VITA100066 PO (11:25)
[2021-02-19] MEDS ORDERED: D3 H10002 PO (11:25)
[2021-02-19] MEDS ORDERED: HOME MED LIST COMPLETE! XX SCH (11:30)
[2021-02-19] MEDS ORDERED: LABETALOL 100MG/20ML VIAL IV STA (11:35)
--- NOTE | 2021-02-19 11:57 | REP ---
INDICATION: abdl pain. COMPARISON: 07/10/2017. TECHNIQUE: Single portable AP view of the chest was performed. FINDINGS: There is a low level of ventilation. There is discoid atelectasis in each lung base. No infiltrate is seen. The heart is not enlarged. There is some tortuosity of the thoracic aorta. The mediastinal silhouette is unchanged. IMPRESSION: Poor ventilation with mild discoid atelectasis in the lung bases. No consolidating infiltrate. <Electronically signed by Oliver Fraire > 02/19/21 [id number]
[2021-02-19] MEDS ORDERED: traMADol 50 MG TAB PO PRN ×2 (12:00→12:25)
[2021-02-19] MEDS ORDERED: ACETAMINOPHEN TAB 650MG DOSE (2X325MG) PO PRN (12:05)
[2021-02-19] MEDS ORDERED: MOM 30ML SUSPENSION UDC PO PRN (12:05)
[2021-02-19 12:19] LABS: RSV AMPLIFICATION NEGATIVE (NEGATIVE)
--- NOTE | 2021-02-19 12:26 | HPEPDOC ---
[facility] Medical History & Physical Date of Admission Feb 19, 2021 Date of Service: Feb 19, 2021 History and Physical CHIEF COMPLAINT: Left lower quadrant abdominal pain HISTORY OF PRESENT ILLNESS: 70-year-old female with a past medical history of hyperlipidemia spinal stenosis hypertension arthritis of the spine kidney stones diverticulosis glucoma presented to the ER after she developed abdominal pain earlier this morning located in the left lower quadrant. She woke up with this pain is unrelated to eating. She denies any fevers chills nausea vomiting or diarrhea. She has no history of melena and her last colonoscopy was approximately 6 months ago which revealed diverticulosis. Patient denies any chest pain palpitations shortness of breath or blurred vision. CT scan of the abdomen showing diverticulitis in the sigmoid colon. She has mild leukocytosis of 10.3. She was found to have hypertensive urgency in the ER blood pressure systolic 200. She received 20 mg of IV labetalol. Patient states that she had previously had hypertension but does not take any medication. She was started on IV Zosyn and IV fluids. Patient be admitted to PCU under hospitalist service for the management of hypertensive urgency as well as diverticulitis seen on CT scan. PAST MEDICAL HISTORY: KNEE ARTHROSCOPYRIGHT KNEE REPLACEMENT-RIGHT D&C TUBAL LIGATION LASIK COLONOSCOPY 02/09 EGD 02/09 LEFT ROTATER CUFF 2012 LEFT TOTAL KNEE REPLACEMENT 07/24/17 PAST SURGICAL HISTORY: KNEE ARTHROSCOPYRIGHT KNEE REPLACEMENT-RIGHT D&C TUBAL LIGATION LASIK COLONOSCOPY 02/09 EGD 02/09 LEFT ROTATER CUFF 2012 LEFT TOTAL KNEE REPLACEMENT 07/24/17 SOCIAL HISTORY: Patient denies smoking Patient denies etoh use Patient denies illicit drug use Patient is at home with her . 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 FAMILY HISTORY: FATHER: 52 YRS, PROSTATE CANCER W/METS. MOTHER: 66 YRS, CA LUNG, NEVER SMOKED SON(S): HIV POS 2 BROTHER(S) . 2 SON(S) - HEALTHY. BROTHER AT 68, PROSTATE CANCER. BROTHER AT 70, COLON CANCER. BROTHER OF SUICIDE. BROTHER FROM CHF. BROTHER WITH PROSTATE CANCER, LIVING. NO BREAST OR OVARIAN CANCER IN FAMILY. ALLERGIES: Please see below. REVIEW OF SYSTEMS: 10 point ROS conducted, relevant findings were noted in the HPI. HOME MEDICATIONS: Please see below. PHYSICAL EXAMINATION: VITAL SIGNS: please see below General: NAD, comfortable HEENT: PERRLA, EOMI, sclerae clear Neck: supple, normal ROM, no JVD Respiratory: lungs CTAB, no wheeze, no rales, no crackles CVS: RRR, normal S1, S2, no murmurs Abdo: 6/10 pain to palpation of the left lower quadrant. No abdominal rigidity guarding. Bowel sounds intact. Extremities: no edema, pulses 2+ MSK: no joint deformities, normal ROM Neuro: no focal neuro deficits, moving all 4 extremities, CN2-12 intact. Strength 5/5 in all 4 extremities. No nystagmus. Psych: calm, cooperative, AAO x 3 LABORATORY DATA: See below. IMAGING: CXR 02/19/2021: Poor ventilation with mild discoid atelectasis in the lung bases. No consolidating infiltrate. CT abdomen pelvis with IV contrast 02/19/2021: FINDINGS: Lung bases: There are mild bibasilar fibro atelectatic changes. Liver: Normal Gallbladder: Unremarkable. Spleen: Normal. Adrenals: Normal. Pancreas: Normal. Kidneys: There is bilateral cortical thinning without hydronephrosis. Small and large bowel: There is extensive diverticulosis of the sigmoid colon. There are findings of associated diverticulitis. There is no free air or abscess. Free fluid: None. Abdominal aorta: No aneurysm or dissection. Adenopathy: None. Appendix: Not inflamed. Osseous structures: There are degenerative changes of the spine without compression deformity. Pelvis: There is a partially calcified uterine fibroid 1.2 cm in diameter. There appears to be a small left femoral hernia containing noninflamed fat. IMPRESSION: Sigmoid diverticulitis. No free fluid or abscess. MICROBIOLOGY: Please see below. ASSESSMENT: 70-year-old female with a past medical history of hyperlipidemia spinal stenosis hypertension arthritis of the spine kidney stones diverticulosis glucoma, diagnosed with diverticulitis and hypertensive urgency. Admitted to PCU. Started on IV Zosyn and fluids. . PLAN: Sigmoid diverticulitis: has hx of diverticulosis, non bleeding internal hemorrhoids seen on last c-scope 10/[address] Ronquillo. WBC 10.3. Afebrile. CT reviewed as above. Continue with zosyn. IV NS 125 cc/hr. Pain control with home tramadol, morphine IV prn for breakthrough. NPO sips and chips. Hypertensive urgency: SBP 200 in ER. Takes no antihypertensives at home. Given 20 mg IV labetalol in ER. Will check renal US with dopplers to r/o renal artery stenosis. Check VMA, metanephrines, catecholamines. renal usStart patient on amlodipine 5 mg. HCTZ 12.5 mg daily. Chronic back pain/spinal stenosis/arthritis: resume home mataxalone, tramadol HLD: resume simvastatin Glaucoma: artificial tears. Drops not on formulary. Neuropathy: sees Dr. zayas. C/w tramadol. PT/OT ordered DVT ppx: TEDs. Lovenox. Dispo: pending clinical improvement. Vital Signs Vital Signs Date Time Temp Pulse Resp B/P (MAP) Pulse Ox O2 Delivery O2 Flow Rate FiO2 02/19/21 11:03 20 02/19/21 08:05 98.2 70 191/88 (122) 95 Room Air Laboratory Data Labs 24H Laboratory Tests 2 02/19/21 08:52: Immature Granulocyte % (Auto) 0.2, Neutrophils (%) (Auto) 85.5H, Lymphocytes (%) (Auto) 7.7L, Monocytes (%) (Auto) 6.0, Eosinophils (%) (Auto) 0.4, Basophils (%) (Auto) 0.2, Neutrophils # (Auto) 8.9H, Lymphocytes # (Auto) 0.8L, Monocytes # (Auto) 0.6, Eosinophils # (Auto) 0.0, Basophils # (Auto) 0.0, Nucleated Red Blood Cells % (auto) 0.0, Lactic Acid Level 0.9, Total Bilirubin 1.0, Direct Dl irubin 0.3H, Aspartate Amino Transf (AST/SGOT) 17, Alanine Aminotransferase (ALT/SGPT) 20, Alkaline Phosphatase 64, Total Protein 6.8, Albumin 3.6, Albumin/Globulin Ratio 1.1L, Amylase Level 57, Lipase 201 02/19/21 09:03: POC Glucose (Misc Panel) 103, POC Sodium (Misc Panel) 141, POC Potassium (Misc Panel) 3.9, POC Chloride (Misc Panel) 102, POC Total CO2 (Misc Panel) 27.0, POC Blood Urea Nitrogen (Misc Panel 18, POC Ionized Calcium (Misc Panel) 4.7, POC Creatinine (Misc Panel) 0.5L, POC Hematocrit (Misc Panel) 43.0 02/19/21 09:48: Urine Color YELLOW, Urine Appearance HAZY, Urine pH 7.0, Urine Specific [place] 1.026, Urine Protein NEGATIVE, Urine Glucose (UA) NEGATIVE, Urine Ketones NEGATIVE, Urine Blood NEGATIVE, Urine Nitrite POSITIVEH, Urine Bilirubin NEGATIVE, Urine Urobilinogen 0.2, Urine Leukocyte Esterase TRACEH, Urine WBC (Auto) 5H, Urine RBC (Auto) 1, Urine Hyaline Casts (Auto) 0, Urine Bacteria (Auto) 1+H, Urine Squamous Epithelial Cells 2, Urine Sperm (Auto) 02/19/21 11:15: CBC/BMP Laboratory Tests 02/19/21 08:52 Microbiology Microbiology 02/19/21 Urine Culture, Received Pending 02/19/21 Blood Culture, Received Pending Home Medications Scheduled Ascorbic Acid (Vitamin C) 500 Mg Tab, 500 MG PO BID Bimatoprost (Lumigan) 50 Drop/2.5 Ml Lu, 1 DROP OU QHS Brimonidine Tartrate/Timolol (Combigan 0.2%-0.5% Eye Drops) 1 Lu Lu, 1 DROP OU BID Calcium Carbonate/Vitamin D3 (Calcium 600 + Vit D 400 Softgl) 1 Each Capsule, 1 CAP PO QHS Celecoxib (Celecoxib) 200 Mg Cap, 200 MG PO QHS Cholecalciferol (Vitamin D3) (Vitamin D3) 25 Mcg Tablet, 25 MCG PO DAILY Cholecalciferol (Vitamin D3) (Vitamin D3) 25 Mcg Capsule, 50 MCG PO QHS Cinnamon Bark (Cinnamon) 500 Mg Capsule, 500 MG PO BID Garlic (Garlic Oil) 1,000 Mg Capsule, 1,000 MG PO BID Metaxalone (Metaxalone) 800 Mg Tablet, 400 MG PO QHS Multivitamins (Thera M Plus Tablet) 1 Each Tablet, 1 TAB PO DAILY Pantoprazole Sodium (Pantoprazole Sodium) 40 Mg Tab, 40 MG PO DAILY Simvastatin (Simvastatin) 40 Mg Tablet, 40 MG PO QHS Vitamin E (Vitamin E) 400 Unit Capsule, 400 UNIT PO DAILY Scheduled PRN Acetaminophen (Tylenol Arthritis) 650 Mg Tablet.er, 1,300 MG PO Q8H PRN for PAIN LEVEL 4-7 Tramadol HCl (Tramadol HCl) 50 Mg Tablet, 50 MG PO BID PRN for PAIN LEVEL 8-10 Allergies Coded Allergies: No Known Allergies (Unverified , 03/13/20) A-FIB/CHADSVASC A-FIB History Current/History of A-Fib/PAF?: No BRAYDEN PARKS MD Feb 19, 2021 12:26
[2021-02-19 15:32] VITALS: BP 180/82
[2021-02-19] MEDS: POLYVINYL ALCOHOL OPHTH SOLN 15 ML(LIQUITEARS) OU SCH ×2 (16:00→21:39)
[2021-02-19] MEDS: hydroCHLOROthiazide 12.5 MG CAPSULE PO SCH (16:53)
[2021-02-19] MEDS: amLODIPine 5 MG TAB PO SCH (16:53)
[2021-02-19] MEDS: PIPERACILLIN/TAZOBACTAM SOD 4.5 GM in D5W MINI-BAG PLUS 50 ML IV SCH ×2 (16:54→22:54)
[2021-02-19] MEDS: NS 1,000 ML IV SCH (16:55)
[2021-02-19 18:34] VITALS: BP 148/76
--- NOTE | 2021-02-19 19:24 | ECGEPIP ---
[facility] - ED Test Date: 2021-02-19 Pat Name: BRANDON CORMIER Department: Room: - Gender: Female Scrum Master: TOMMY : 1950 Requested By: Mohini Franks Order Number: [id number] Reading MD: Mohini Franks Measurements Intervals [place] Rate: 75 P: 37 OK: 172 QRS: -3 QRSD: 92 T: 63 QT: 396 QTc: 442 Interpretive Statements Normal sinus rhythm Minimal voltage criteria for LVH, may be normal variant ( [place] product ) Inferior infarct , age undetermined Delayed R wave progression - possible anterior wall myocardial infartion, age u undetermined cw 07/10/[address] T wave changes Electronically Signed on 02-19-2021 19:24:27 EDT by Mohini Franks
[2021-02-19 20:00] VITALS: BP 158/78
[2021-02-19] MEDS: METAXALONE 400 MG 1/2 TAB PO SCH (21:37)
[2021-02-19] MEDS: SIMVASTATIN 40 MG TAB PO SCH (21:38)
[2021-02-20] VITALS: BP 158/83
[2021-02-20] MEDS: NS 1,000 ML IV SCH ×3 (01:47→21:03)
[2021-02-20 04:00] VITALS: BP 150/71
[2021-02-20] MEDS: PIPERACILLIN/TAZOBACTAM SOD 4.5 GM in D5W MINI-BAG PLUS 50 ML IV SCH ×4 (06:55→23:16)
[2021-02-20 07:21] VITALS: BP 134/63
--- NOTE | 2021-02-20 08:39 | REPVR ---
PROCEDURE INFORMATION: Exam: US Duplex Artery and Vein of the Abdominal and/or Reproductive Organs, Complete Kidneys Exam date and time: 02/20/2021 6:45 AM Age: 70 years old Clinical indication: Other: HTN urgency; Patient HX: R/O js; Additional info: HTN urgency, please include renal artery dopplers. TECHNIQUE: Imaging protocol: Real-time duplex ultrasound scan of the arterial and venous flow with color Doppler flow and spectral waveform analysis with image documentation. Complete duplex exam focused on the kidneys. Duplex images required to evaluate vascular conditions. COMPARISON: CT ABD/PEL W/IV CONTRAST ONLY 02/19/2021 9:07 AM FINDINGS: Right kidney: 9.4 x 4.5 x 4.8 cm. Lobulated contour and parenchymal scarring, most pronounced within the upper pole. No hydronephrosis. Right renal artery: Normal duplex of the renal artery. Duplex waveforms are within normal limits. No hemodynamically significant stenosis. Right interlobar/arcuate arteries: Resistive indices 0.57-0.7 Right renal vein: Patent. Left kidney: 11.4 x 6.2 x 5.3 cm. Lobulated contour with mild parenchymal scarring. No hydronephrosis. Left renal artery: Proximal left renal artery is obscured by bowel gas. Normal duplex of the mid-distal renal artery. Duplex waveforms are within normal limits. No hemodynamically significant stenosis. Left interlobar/arcuate arteries: Resistive indices 0.58-0.62 Left renal vein: Patent. IMPRESSION: 1. Lobulated renal contour with areas of parenchymal scarring, right greater than left. No evidence of hydronephrosis. 2. No evidence of hemodynamically significant renal artery stenosis, however, the proximal left renal artery is obscured by bowel gas. Electronically signed by: Ciro Becker On 02/20/2021 08:39:25 AM
[2021-02-20 09:04] LABS: BASO % 0.1 % (0.0-1.0); HEMATOCRIT 39.2 % (36.0-47.0); HEMOGLOBIN 12.5 g/dl (12.0-15.5); LYMPH # 0.8 10^3/uL (1.5-5.0); LYMPH % 8.3 % (24.0-44.0); MEAN CORPUSCULAR HEMOGLOBIN 30.3 pg (27.0-33.0); MEAN CORPUSCULAR HGB CONC 31.9 g/dl (32.0-36.5); MEAN CORPUSCULAR VOLUME 94.9 fl (80.0-96.0); MONO # 0.6 10^3/uL (0.0-0.8); MONO % 6.5 % (2.0-8.0); NEUTROPHILS # 8.2 10^3/uL (1.5-8.5); NEUTROPHILS % 84.7 % (36.0-66.0); PLATELET COUNT, AUTOMATED 187 10^3/uL (150-450); RED BLOOD COUNT 4.13 10^6/uL (4.00-5.40); WHITE BLOOD COUNT 9.6 10^3/uL (4.0-10.0)
[2021-02-20 09:28] LABS: ALBUMIN 2.9 GM/DL (3.2-5.2); ALT/SGPT 15 U/L (12-78); BILIRUBIN,TOTAL 1.3 MG/DL (0.2-1.0); BLOOD UREA NITROGEN 11 MG/DL (7-18); CALCIUM LEVEL 8.8 MG/DL (8.8-10.2); CARBON DIOXIDE LEVEL 30 MEQ/L (21-32); CHLORIDE LEVEL 104 MEQ/L (98-107); CREATININE FOR GFR 0.53 MG/DL (0.55-1.30); GLOMERULAR FILTRATION RATE > 60.0 (>39); GLUCOSE, FASTING 108 MG/DL (70-100); MAGNESIUM LEVEL 2.1 MG/DL (1.8-2.4); POTASSIUM SERUM 3.6 MEQ/L (3.5-5.1); SODIUM LEVEL 138 MEQ/L (136-145); TOTAL PROTEIN 6.2 GM/DL (6.4-8.2)
[2021-02-20] MEDS: hydroCHLOROthiazide 12.5 MG CAPSULE PO SCH (09:45)
[2021-02-20] MEDS: ASCORBIC ACID 500 MG TAB PO SCH ×2 (09:45→21:05)
[2021-02-20] MEDS: POLYVINYL ALCOHOL OPHTH SOLN 15 ML(LIQUITEARS) OU SCH ×3 (09:45→21:00)
[2021-02-20] MEDS: ENOXAPARIN 40MG/0.4ML SYRINGE (J1650 PER 10MG) SC SCH (09:45)
[2021-02-20] MEDS: amLODIPine 5 MG TAB PO SCH (09:46)
--- NOTE | 2021-02-20 10:42 | IPNPDOC ---
Date Seen The patient was seen on 02/20/21. Progress Note SUBJECTIVE: Patient was seen and examined at bedside. Patient states that her abdominal pain in her left lower quadrant persists although it is mildly improved from yesterday after taking morphine. Patient denies any nausea vomiting. She has any chest pain shortness of breath palpitations or subjective fevers or chills. Patient's blood pressure did improve after receiving p.o. medication yesterday and is now trending in the 130 systolic range. OBJECTIVE PHYSICAL EXAMINATION: VITAL SIGNS: please see below General: NAD, comfortable HEENT: PERRLA, EOMI, sclerae clear Neck: supple, normal ROM, no JVD Respiratory: lungs CTAB, no wheeze, no rales, no crackles CVS: RRR, normal S1, S2, no murmurs Abdo: 6/10 pain to palpation of the left lower quadrant. No abdominal rigidity guarding. Bowel sounds intact. Extremities: no edema, pulses 2+ MSK: no joint deformities, normal ROM Neuro: no focal neuro deficits, moving all 4 extremities, CN2-12 intact. Strength 5/5 in all 4 extremities. No nystagmus. Psych: calm, cooperative, AAO x 3 LABORATORY DATA, IMAGING STUDIES, MICROBIOLOGY: Please see below. Renal US with doppler (02/20/21): IMPRESSION: 1. Lobulated renal contour with areas of parenchymal scarring, right greater than left. No evidence of hydronephrosis. 2. No evidence of hemodynamically significant renal artery stenosis, however, the proximal left renal artery is obscured by bowel gas DVT prophylaxis ordered?: lovenox ASSESSMENT AND PLAN: 70-year-old female with a past medical history of hyperlipidemia spinal stenosis hypertension arthritis of the spine kidney stones diverticulosis glucoma, diagnosed with diverticulitis and hypertensive urgency. Admitted to PCU. Started on IV Zosyn and fluids. . PLAN: Sigmoid diverticulitis: has hx of diverticulosis, non bleeding internal hemorrhoids seen on last c-scope 10/[address] Ronquillo. Leukocytosis resolved. . Afebrile. CT reviewed as above. Continue with zosyn. IV NS 125 cc/hr. Pain control with morphine IV prn for breakthrough, added oxycodone 5 mg q6h prn, and held home tramadol. NPO sips and chips. Hypertensive urgency: resolved. SBP 200 in ER. Takes no antihypertensives at home. Given 20 mg IV labetalol in ER. Will check renal US with dopplers to r/o renal artery stenosis. Check VMA, metanephrines, catecholamines. renal us. Staredt patient on amlodipine 5 mg. HCTZ 12.5 mg daily. Chronic back pain/spinal stenosis/arthritis: resume home mataxalone. Holding tramadol, replaced with oxycodone for diverticulitis pain. HLD: resume simvastatin Glaucoma: artificial tears. Drops not on formulary. Neuropathy: sees Dr. zayas. C/w tramadol. PT/OT ordered DVT ppx: TEDs. Lovenox. Dispo: pending clinical improvement. VS, I&O, 24H, Fishbone Vital Signs/I&O Vital Signs Date Time Temp Pulse Resp B/P (MAP) Pulse Ox O2 Delivery O2 Flow Rate FiO2 02/20/21 09:46 67 134/63 02/20/21 07:21 97.2 18 94 Room Air I&O- Last 24 Hours up to 6 AM 02/20/21 05:59 Intake Total 1000 ml Output Total 900 ml Balance 100 ml Laboratory Data 24H LABS Laboratory Tests 2 02/19/21 11:15: Coronavirus (COVID-19)(PCR) NEGATIVE, Influenza Type A (RT-PCR) NEGATIVE, Influenza Type B (RT-PCR) NEGATIVE, Respiratory Syncytial Virus (PCR) NEGATIVE 02/20/21 04:28: 02/20/21 08:21: Immature Granulocyte % (Auto) 0.4, Neutrophils (%) (Auto) 84.7H, Lymphocytes (%) (Auto) 8.3L, Monocytes (%) (Auto) 6.5, Eosinophils (%) (Auto) 0.0, Basophils (%) (Auto) 0.1, Neutrophils # (Auto) 8.2, Lymphocytes # (Auto) 0.8L, Monocytes # (Auto) 0.6, Eosinophils # (Auto) 0.0, Basophils # (Auto) 0.0, Nucleated Red Blood Cells % (auto) 0.0, Anion Gap 4L, Glomerular Filtration Rate > 60.0, Calcium Level 8.8, Magnesium Level 2.1, Total Bilirubin 1.3H, Aspartate Amino Transf (AST/SGOT) 11, Alanine Aminotransferase (ALT/SGPT) 15, Alkaline Phosphatase 54, Total Protein 6.2L, Albumin 2.9L, Albumin/Globulin Ratio 0.9L CBC/BMP Laboratory Tests 02/20/21 08:21 Microbiology Microbiology 02/19/21 Blood Culture, Received Pending 02/19/21 Urine Culture, Received Pending 02/19/21 Blood Culture - Preliminary, Resulted No growth after 24 hours . All specim... BRAYDEN PARKS MD Feb 20, 2021 10:42
[2021-02-20 11:10] VITALS: BP 138/61
[2021-02-20 15:42] VITALS: BP 157/74
[2021-02-20] MEDS: oxyCODONE 5MG TAB PO PRN (19:28)
[2021-02-20 20:00] VITALS: BP 150/78
[2021-02-20] MEDS: SIMVASTATIN 40 MG TAB PO SCH (21:05)
[2021-02-20] MEDS: METAXALONE 400 MG 1/2 TAB PO SCH (21:05)
[2021-02-21] VITALS: BP 112/78
[2021-02-21] MEDS: oxyCODONE 5MG TAB PO PRN ×4 (02:25→23:29)
[2021-02-21 04:00] VITALS: BP 144/68
[2021-02-21] MEDS: NS 1,000 ML IV SCH ×3 (04:05→23:17)
[2021-02-21 04:41] LABS: HEMOGLOBIN 11.9 g/dl (12.0-15.5); MEAN CORPUSCULAR HEMOGLOBIN 30.2 pg (27.0-33.0); MEAN CORPUSCULAR HGB CONC 32.2 g/dl (32.0-36.5); MEAN CORPUSCULAR VOLUME 93.9 fl (80.0-96.0); PLATELET COUNT, AUTOMATED 181 10^3/uL (150-450); RED BLOOD COUNT 3.94 10^6/uL (4.00-5.40); WHITE BLOOD COUNT 10.5 10^3/uL (4.0-10.0)
[2021-02-21 05:01] LABS: BLOOD UREA NITROGEN 9 MG/DL (7-18); CARBON DIOXIDE LEVEL 28 MEQ/L (21-32); CHLORIDE LEVEL 104 MEQ/L (98-107); CREATININE FOR GFR 0.45 MG/DL (0.55-1.30); GLOMERULAR FILTRATION RATE > 60.0 (>39); GLUCOSE, FASTING 94 MG/DL (70-100); MAGNESIUM LEVEL 1.8 MG/DL (1.8-2.4); SODIUM LEVEL 138 MEQ/L (136-145)
[2021-02-21] MEDS: PIPERACILLIN/TAZOBACTAM SOD 4.5 GM in D5W MINI-BAG PLUS 50 ML IV SCH ×4 (05:55→23:18)
[2021-02-21 07:03] VITALS: BP 140/72
[2021-02-21] MEDS ORDERED: POTASSIUM CHLORIDE 10 MEQ SR TABLET PO ONE (08:00)
[2021-02-21] MEDS: amLODIPine 5 MG TAB PO SCH (09:22)
[2021-02-21] MEDS: POLYVINYL ALCOHOL OPHTH SOLN 15 ML(LIQUITEARS) OU SCH ×3 (09:22→20:43)
[2021-02-21] MEDS: ASCORBIC ACID 500 MG TAB PO SCH ×2 (09:24→20:44)
[2021-02-21] MEDS: hydroCHLOROthiazide 12.5 MG CAPSULE PO SCH (09:24)
[2021-02-21] MEDS: KCL 10MEQ/100ML SWI (KRUN) 10 MEQ in IV 1 EA IV SCH ×4 (09:25→13:43)
[2021-02-21] MEDS: ENOXAPARIN 40MG/0.4ML SYRINGE (J1650 PER 10MG) SC SCH (09:40)
--- NOTE | 2021-02-21 09:56 | REP ---
INDICATION: elevated bilirubin COMPARISON: None. TECHNIQUE: Real time batista scale ultrasound examination using curved array transducer. FINDINGS: Liver is normal in contour, size, and echogenicity without focal hepatic lesions identified. Pancreas is incompletely evaluated due to interposed bowel gas. The gallbladder is normal and without gallstones, wall thickening, or pericholecystic fluid. No biliary ductal dilatation is appreciated and the common bile duct measures 3.7 mm diameter. Right kidney demonstrates increased central sinus fat and stable cortical thinning/scarring without hydronephrosis and measures 9.3 x 5.2 x 4.3 cm. No ascites in the visualized right upper quadrant. IMPRESSION: Essentially normal right upper quadrant/liver ultrasound. <Electronically signed by Ciro Fofana > 02/21/21 0947
[2021-02-21 11:18] VITALS: BP 142/88
--- NOTE | 2021-02-21 11:18 | IPNPDOC ---
Date Seen The patient was seen on 02/21/21. Progress Note SUBJECTIVE: Patient seen examined at bedside this morning she is comfortable sitting upright in bed. She drank a little bit of broth on the clear liquid diet but continues to endorse left lower quadrant pain. Currently receiving Zosyn. She says that the pain medication just take the edge off the pain but it is certainly persistent. She is afebrile. She has not had a bowel movement. OBJECTIVE PHYSICAL EXAMINATION: VITAL SIGNS: please see below General: NAD, comfortable HEENT: PERRLA, EOMI, sclerae clear Neck: supple, normal ROM, no JVD Respiratory: lungs CTAB, no wheeze, no rales, no crackles CVS: RRR, normal S1, S2, no murmurs Abdo: 6/10 pain to palpation of the left lower quadrant. No abdominal rigidity guarding. Bowel sounds intact. Extremities: no edema, pulses 2+ MSK: no joint deformities, normal ROM Neuro: no focal neuro deficits, moving all 4 extremities, CN2-12 intact. Strength 5/5 in all 4 extremities. No nystagmus. Psych: calm, cooperative, AAO x 3 LABORATORY DATA, IMAGING STUDIES, MICROBIOLOGY: Please see below. Liver ultrasound 02/21/2021: FINDINGS: Liver is normal in contour, size, and echogenicity without focal hepatic lesions identified. Pancreas is incompletely evaluated due to interposed bowel gas. The gallbladder is normal and without gallstones, wall thickening, or pericholecystic fluid. No biliary ductal dilatation is appreciated and the common bile duct measures 3.7 mm diameter. Right kidney demonstrates increased central sinus fat and stable cortical thinning/scarring without hydronephrosis and measures 9.3 x 5.2 x 4.3 cm. No ascites in the visualized right upper quadrant. IMPRESSION: Essentially normal right upper quadrant/liver ultrasound. Renal US with doppler (02/20/21): IMPRESSION: 1. Lobulated renal contour with areas of parenchymal scarring, right greater than left. No evidence of hydronephrosis. 2. No evidence of hemodynamically significant renal artery stenosis, however, the proximal left renal artery is obscured by bowel gas DVT prophylaxis ordered?: lovenox ASSESSMENT AND PLAN: 70-year-old female with a past medical history of hyperlipidemia spinal stenosis hypertension arthritis of the spine kidney stones diverticulosis glucoma, diagnosed with diverticulitis and hypertensive urgency. Admitted to PCU. Started on IV Zosyn and fluids. . PLAN: Sigmoid diverticulitis: has hx of diverticulosis, non bleeding internal hemorrhoids seen on last c-scope 10/[address] Ronquillo. Leukocytosis resolved. . Afebrile. CT reviewed as above. Continue with zosyn. IV NS 125 cc/hr. Pain control with morphine IV prn for breakthrough, added oxycodone 5 mg q6h prn, and held home tramadol. trial CLD. Tolerating well. Hypertensive urgency: resolved. SBP 200 in ER. Takes no antihypertensives at home. Given 20 mg IV labetalol in ER. Will check renal US with dopplers to r/o renal artery stenosis. Check VMA, metanephrines, catecholamines. renal us. Staredt patient on amlodipine 5 mg. HCTZ 12.5 mg daily. Elevated bilirubin: normal liver US. No RUQ pain. No jaundice. Chronic back pain/spinal stenosis/arthritis: resume home mataxalone. Holding tramadol, replaced with oxycodone for diverticulitis pain. UTI: urine culture positive for e coli. On zosyn for diverticulitis. HLD: resume simvastatin Glaucoma: artificial tears. Drops not on formulary. Neuropathy: sees Dr. zayas. C/w tramadol. PT/OT ordered DVT ppx: TEDs. Lovenox. Dispo: pending clinical improvement. PT/OT recommending home with services. VS, I&O, 24H, Fishbone Vital Signs/I&O Vital Signs Date Time Temp Pulse Resp B/P (MAP) Pulse Ox O2 Delivery O2 Flow Rate FiO2 02/21/21 09:55 20 02/21/21 09:25 Room Air 02/21/21 09:22 72 140/72 02/21/21 07:03 98.1 94 I&O- Last 24 Hours up to 6 AM 02/21/21 06:00 Intake Total 2650 ml Output Total 2100 ml Balance 550 ml Laboratory Data 24H LABS Laboratory Tests 2 02/21/21 04:18: Nucleated Red Blood Cells % (auto) 0.0, Anion Gap 6L, Glomerular Filtration Rate > 60.0, Calcium Level 8.0L, Magnesium Level 1.8 CBC/BMP Laboratory Tests 02/21/21 04:18 Microbiology Microbiology 02/19/21 Blood Culture - Preliminary, Resulted No growth after 24 hours . All specim... 02/19/21 Urine Culture - Final, Complete Escherichia Coli 02/19/21 Blood Culture - Preliminary, Resulted No Growth after 48 hours. All Specime... BRAYDEN PARKS MD Feb 21, 2021 11:18
[2021-02-21 15:21] VITALS: BP 166/80
[2021-02-21 19:48] VITALS: BP 149/87
[2021-02-21] MEDS: METAXALONE 400 MG 1/2 TAB PO SCH (20:43)
[2021-02-21] MEDS: SIMVASTATIN 40 MG TAB PO SCH (20:44)
[2021-02-22 05:39] LABS: HEMATOCRIT 35.7 % (36.0-47.0); HEMOGLOBIN 11.8 g/dl (12.0-15.5); MEAN CORPUSCULAR HEMOGLOBIN 30.8 pg (27.0-33.0); MEAN CORPUSCULAR HGB CONC 33.1 g/dl (32.0-36.5); MEAN CORPUSCULAR VOLUME 93.2 fl (80.0-96.0); PLATELET COUNT, AUTOMATED 180 10^3/uL (150-450); RED BLOOD COUNT 3.83 10^6/uL (4.00-5.40); WHITE BLOOD COUNT 7.3 10^3/uL (4.0-10.0)
[2021-02-22 05:55] VITALS: BP 157/93
[2021-02-22] MEDS: PIPERACILLIN/TAZOBACTAM SOD 4.5 GM in D5W MINI-BAG PLUS 50 ML IV SCH ×4 (06:11→23:01)
[2021-02-22 06:12] LABS: ALBUMIN 2.3 GM/DL (3.2-5.2); ALT/SGPT 12 U/L (12-78); BILIRUBIN,TOTAL 1.3 MG/DL (0.2-1.0); BLOOD UREA NITROGEN 6 MG/DL (7-18); CALCIUM LEVEL 8.6 MG/DL (8.8-10.2); CARBON DIOXIDE LEVEL 28 MEQ/L (21-32); CHLORIDE LEVEL 104 MEQ/L (98-107); CREATININE FOR GFR 0.45 MG/DL (0.55-1.30); GLOMERULAR FILTRATION RATE > 60.0 (>39); GLUCOSE, FASTING 100 MG/DL (70-100); MAGNESIUM LEVEL 1.9 MG/DL (1.8-2.4); POTASSIUM SERUM 3.6 MEQ/L (3.5-5.1); SODIUM LEVEL 138 MEQ/L (136-145); TOTAL PROTEIN 6.2 GM/DL (6.4-8.2)
[2021-02-22] MEDS: ASCORBIC ACID 500 MG TAB PO SCH ×2 (08:35→21:45)
[2021-02-22] MEDS: hydroCHLOROthiazide 12.5 MG CAPSULE PO SCH (08:35)
[2021-02-22] MEDS: NS 1,000 ML IV SCH ×3 (08:35→21:44)
[2021-02-22] MEDS: oxyCODONE 5MG TAB PO PRN ×2 (08:36→17:32)
[2021-02-22] MEDS: amLODIPine 5 MG TAB PO SCH (08:37)
[2021-02-22] MEDS: ENOXAPARIN 40MG/0.4ML SYRINGE (J1650 PER 10MG) SC SCH (08:37)
[2021-02-22] MEDS: POLYVINYL ALCOHOL OPHTH SOLN 15 ML(LIQUITEARS) OU SCH ×3 (08:39→21:45)
[2021-02-22] MEDS ORDERED: ISOVUE-370 76% 100ML VIAL As Ordered ONE (09:12)
--- NOTE | 2021-02-22 09:56 | IPNPDOC ---
Date Seen The patient was seen on 02/22/21. Progress Note SUBJECTIVE: Patient was seen examined at bedside. Sitting upright in chair tolerating clear liquid diet well. Having regular bowel movements, had 2 on 02/21/2021. Patient continues to report left lower quadrant pain with only mild improvement for the last 3 days. Denies any chest pain shortness breath cavitations nausea vomiting diarrhea subjective fevers or chills. OBJECTIVE PHYSICAL EXAMINATION: VITAL SIGNS: please see below General: NAD, comfortable HEENT: PERRLA, EOMI, sclerae clear Neck: supple, normal ROM, no JVD Respiratory: lungs CTAB, no wheeze, no rales, no crackles CVS: RRR, normal S1, S2, no murmurs Abdo: 6/10 pain to palpation of the left lower quadrant. No abdominal rigidity guarding. Bowel sounds intact. Extremities: no edema, pulses 2+ MSK: no joint deformities, normal ROM Neuro: no focal neuro deficits, moving all 4 extremities, CN2-12 intact. Strength 5/5 in all 4 extremities. No nystagmus. Psych: calm, cooperative, AAO x 3 LABORATORY DATA, IMAGING STUDIES, MICROBIOLOGY: Please see below. Liver ultrasound 02/21/2021: FINDINGS: Liver is normal in contour, size, and echogenicity without focal hepatic lesions identified. Pancreas is incompletely evaluated due to interposed bowel gas. The gallbladder is normal and without gallstones, wall thickening, or pericholecystic fluid. No biliary ductal dilatation is appreciated and the common bile duct measures 3.7 mm diameter. Right kidney demonstrates increased central sinus fat and stable cortical thinning/scarring without hydronephrosis and measures 9.3 x 5.2 x 4.3 cm. No ascites in the visualized right upper quadrant. IMPRESSION: Essentially normal right upper quadrant/liver ultrasound. Renal US with doppler (02/20/21): IMPRESSION: 1. Lobulated renal contour with areas of parenchymal scarring, right greater than left. No evidence of hydronephrosis. 2. No evidence of hemodynamically significant renal artery stenosis, however, the proximal left renal artery is obscured by bowel gas DVT prophylaxis ordered?: lovenox ASSESSMENT AND PLAN: 70-year-old female with a past medical history of hyperlipidemia spinal stenosis hypertension arthritis of the spine kidney stones diverticulosis glucoma, diagnosed with diverticulitis and hypertensive urgency. Admitted to PCU. Started on IV Zosyn and fluids. . PLAN: Sigmoid diverticulitis: has hx of diverticulosis, non bleeding internal hemorrhoids seen on last c-scope 10/[address] Ronquillo. Leukocytosis resolved. . Afebrile. CT reviewed as above. Continue with zosyn. IV NS 125 cc/hr. Pain control with morphine IV prn for breakthrough, added oxycodone 5 mg q6h prn, and held home tramadol. Discussed with Dr. Gonzalez given the fact that the pain has not improved. He recommends repeating CT abdomen pelvis with IV contrast to ensure that there is no abscess formation. There is no worsening of her imaging, she may be advanced to a GI soft diet with reassurance. Hypertensive urgency: resolved. SBP 200 in ER. Takes no antihypertensives at home. Given 20 mg IV labetalol in ER. Will check renal US with dopplers to r/o renal artery stenosis. Check VMA, metanephrines, catecholamines. renal us. Staredt patient on amlodipine 5 mg. HCTZ 12.5 mg daily. Elevated bilirubin: normal liver US. No RUQ pain. No jaundice. Chronic back pain/spinal stenosis/arthritis: resume home mataxalone. Holding tramadol, replaced with oxycodone for diverticulitis pain. UTI: urine culture positive for e coli. On zosyn for diverticulitis. HLD: resume simvastatin Glaucoma: artificial tears. Drops not on formulary. Neuropathy: sees Dr. zayas. C/w tramadol. PT/OT ordered DVT ppx: TEDs. Lovenox. Dispo: pending clinical improvement. PT/OT recommending home with services. VS, I&O, 24H, Fishbone Vital Signs/I&O Vital Signs Date Time Temp Pulse Resp B/P (MAP) Pulse Ox O2 Delivery O2 Flow Rate FiO2 02/22/21 08:37 98 169/92 02/22/21 08:36 18 Room Air 02/22/21 05:55 98.3 95 I&O- Last 24 Hours up to 6 AM 02/22/21 06:00 Intake Total 3965 ml Output Total 1700 ml Balance 2265 ml Laboratory Data 24H LABS Laboratory Tests 2 02/22/21 05:07: Nucleated Red Blood Cells % (auto) 0.0, Anion Gap 6L, Glomerular Filtration Rate > 60.0, Calcium Level 8.6L, Magnesium Level 1.9, Total Bilirubin 1.3H, Aspartate Amino Transf (AST/SGOT) 14, Alanine Aminotransferase (ALT/SGPT) 12, Alkaline Phosphatase 56, Total Protein 6.2L, Albumin 2.3#L, Albumin/Globulin Ratio 0.6L CBC/BMP Laboratory Tests 02/22/21 05:07 Microbiology Microbiology 02/19/21 Blood Culture - Preliminary, Resulted No Growth after 48 hours. All Specime... 02/19/21 Urine Culture - Final, Complete Escherichia Coli 02/19/21 Blood Culture - Preliminary, Resulted No Growth after 72 hours. All specime... BRAYDEN PARKS MD Feb 22, 2021 09:56
--- NOTE | 2021-02-22 10:05 | REP ---
INDICATION: sigmoid diverticulitis, r/o abscess. COMPARISON: 02/19/2021 TECHNIQUE: Axial contrast-enhanced images from the lung bases to the pubic symphysis using 100 cc Isovue 370 intravenous contrast material. Coronal and sagittal reformations obtained. This CT examination was performed using the following dose reduction techniques: Automated exposure control, adjustment of mA and/or kv according to the patient's size, and the use of iterative reconstruction technique. FINDINGS: Liver, spleen, pancreas, gallbladder, bilateral adrenal glands and kidneys are stable and essentially normal. Mild hepatosteatosis cannot be excluded. Kidneys again demonstrate chronic cortical thinning and scarring. Mucosal thickening and pericolonic inflammatory stranding as well as small focus of extraluminal gas involving the proximal sigmoid colon is consistent with continued diverticulitis. No drainable collection/abscess or ascites. No significant free air. Small bowel is grossly unremarkable and without obstruction. Pelvis demonstrates normal bladder and stable appearance of the uterus/adnexa with calcified uterine fibroid again suggested. No ascites. No free air. No intraperitoneal or retroperitoneal adenopathy. Abdominal aorta and vasculature appear normal. Skeletal structures demonstrate significant stable degenerative changes involving thoracolumbar spine. Lung bases demonstrate mild bibasilar atelectasis. IMPRESSION: 1. Continued evidence for sigmoid diverticulitis. No drainable collection/abscess. No obstruction. No significant free air. 2. Mild bibasilar atelectasis. 3. Stable nonacute findings. <Electronically signed by Ciro Fofana > 02/22/21 1001
[2021-02-22 14:00] VITALS: BP 138/81
[2021-02-22 20:00] VITALS: BP 185/94
[2021-02-22] MEDS: SIMVASTATIN 40 MG TAB PO SCH (21:45)
[2021-02-22] MEDS: METAXALONE 400 MG 1/2 TAB PO SCH (21:45)
[2021-02-23] MEDS: PIPERACILLIN/TAZOBACTAM SOD 4.5 GM in D5W MINI-BAG PLUS 50 ML IV SCH ×4 (05:12→23:00)
[2021-02-23] MEDS: oxyCODONE 5MG TAB PO PRN ×3 (05:27→23:08)
[2021-02-23 06:00] VITALS: BP 154/92
[2021-02-23 06:12] LABS: HEMATOCRIT 36.5 % (36.0-47.0); HEMOGLOBIN 11.9 g/dl (12.0-15.5); MEAN CORPUSCULAR HEMOGLOBIN 30.4 pg (27.0-33.0); MEAN CORPUSCULAR HGB CONC 32.6 g/dl (32.0-36.5); MEAN CORPUSCULAR VOLUME 93.1 fl (80.0-96.0); PLATELET COUNT, AUTOMATED 219 10^3/uL (150-450); RED BLOOD COUNT 3.92 10^6/uL (4.00-5.40); WHITE BLOOD COUNT 5.4 10^3/uL (4.0-10.0)
[2021-02-23 06:58] LABS: BLOOD UREA NITROGEN 3 MG/DL (7-18); CALCIUM LEVEL 8.7 MG/DL (8.8-10.2); CARBON DIOXIDE LEVEL 28 MEQ/L (21-32); CHLORIDE LEVEL 105 MEQ/L (98-107); CREATININE FOR GFR 0.44 MG/DL (0.55-1.30); GLOMERULAR FILTRATION RATE > 60.0 (>39); GLUCOSE, FASTING 100 MG/DL (70-100); MAGNESIUM LEVEL 1.8 MG/DL (1.8-2.4); POTASSIUM SERUM 2.8 MEQ/L (3.5-5.1); SODIUM LEVEL 140 MEQ/L (136-145)
[2021-02-23] MEDS ORDERED: ANALGESIC BALM CRM 3OZ TOP PRN (08:00)
[2021-02-23] MEDS: NS 1,000 ML IV SCH ×2 (08:05→16:41)
[2021-02-23] MEDS: ASCORBIC ACID 500 MG TAB PO SCH ×2 (08:05→20:56)
[2021-02-23] MEDS: POLYVINYL ALCOHOL OPHTH SOLN 15 ML(LIQUITEARS) OU SCH ×3 (08:05→20:53)
[2021-02-23] MEDS: amLODIPine 5 MG TAB PO SCH (08:06)
[2021-02-23] MEDS: ENOXAPARIN 40MG/0.4ML SYRINGE (J1650 PER 10MG) SC SCH (08:06)
[2021-02-23] MEDS: hydroCHLOROthiazide 12.5 MG CAPSULE PO SCH ×2 (08:07→09:00)
[2021-02-23] MEDS ORDERED: KCL 20MEQ IN 100ML SWI (KRUN) 20 MEQ in IV 1 EA IV ONE ×2 (08:35)
[2021-02-23] MEDS ORDERED: POTASSIUM CHLORIDE 10 MEQ SR TABLET PO ONE (09:00)
[2021-02-23] MEDS ORDERED: KCL 10MEQ/100ML SWI (KRUN) SINGLE DOSE IV ONE ×4 (09:00→11:00)
[2021-02-23 10:32] VITALS: BP 157/93
[2021-02-23 14:00] VITALS: BP 159/68
[2021-02-23 14:52] LABS: BLOOD UREA NITROGEN 5 MG/DL (7-18); CALCIUM LEVEL 8.5 MG/DL (8.8-10.2); CARBON DIOXIDE LEVEL 27 MEQ/L (21-32); CHLORIDE LEVEL 105 MEQ/L (98-107); CREATININE FOR GFR 0.63 MG/DL (0.55-1.30); GLOMERULAR FILTRATION RATE > 60.0 (>39); GLUCOSE, FASTING 135 MG/DL (70-100); POTASSIUM SERUM 3.2 MEQ/L (3.5-5.1); SODIUM LEVEL 139 MEQ/L (136-145)
[2021-02-23] MEDS: lisinopriL 5 MG TAB PO SCH (16:41)
--- NOTE | 2021-02-23 18:50 | IPNPDOC ---
Subjective Date Seen The patient was seen on 02/23/21. Subjective Chief Complaint/HPI Mrs. Glover is a 70 year old female who is here with acute diverticulitis and hypertensive urgency. This morning, she was just switched to a low residue diet. Will see how she does on a low residue diet. Otherwise, she denies any chest pain or dyspnea. She has left lower abdominal pain that is better with oxycodone and worse with ambulation. Objective Physical Examination General Exam: Positive: Alert, Cooperative Eye Exam: Negative: Sclera icteric Neck Exam: Positive: Supple Chest Exam: Positive: Clear to auscultation Heart Exam: Positive: Rate Normal, Regular Rhythm Abdomen Exam: Positive: Normal bowel sounds, Soft, Tenderness (left lower quadrant) Neuro Exam: Positive: Normal Speech Psych Exam: Positive: Mental status NL, Mood NL Assessment /Plan Assessment Mrs. Glover is a 70 year old female who is here with acute diverticulitis and hypertensive urgency. Will see how she does on a low residue diet. If she tolerates, can consider discharge tomorrow with PO antibiotics. Plan/VTE VTE Prophylaxis Ordered?: Yes Plan 1. Acute sigmoid diverticulitis -Repeat imaging negative for abscess or worsening diverticulitis -Diet advanced to low residue -Pain controlled with oxycodone 2. Hypertensive urgency -Improved -Discontinue IVF -Continue amlodipine and HCTZ -Added on Lisinopril 3. Hypokalemia -Potassium 2.8, gave IV and PO KCl -Patient started on lisinopril -Will recheck BMP later tonight 4. Chronic back pain -2/2 spinal stenosis -Continue mataxalone -Tramadol substituted with oxycodone 5. UTI -Urine culture grew pansensitive E.coli -Continue with Zosyn 6. HDL -Continue simvastatin 7. Glaucoma -Artificial tears -Substitute Bimatoprost with Latanoprost -Continue brimonidine and timolol 8. DVT ppx -Lovenox Disposition: Pending tolerance of low residue diet. PT/OT recommending home with services VS, I&O, 24H, Fishbone Vital Signs/I&O Vital Signs Date Time Temp Pulse Resp B/P (MAP) Pulse Ox O2 Delivery O2 Flow Rate FiO2 02/23/21 16:41 159/68 02/23/21 16:14 18 02/23/21 14:00 99.1 104 94 Room Air I&O- Last 24 Hours up to 6 AM 02/23/21 06:00 Intake Total 2245 ml Output Total 0 ml Balance 2245 ml Laboratory Data 24H LABS Laboratory Tests 2 02/23/21 05:46: Nucleated Red Blood Cells % (auto) 0.0, Anion Gap 7L, Glomerular Filtration Rate > 60.0, Calcium Level 8.7L, Magnesium Level 1.8 02/23/21 14:13: Anion Gap 7L, Glomerular Filtration Rate > 60.0, Calcium Level 8.5L CBC/BMP Laboratory Tests 02/23/21 05:46 02/23/21 14:13 Microbiology Microbiology 02/19/21 Blood Culture - Preliminary, Resulted No Growth after 72 hours. All specime... 02/19/21 Urine Culture - Final, Complete Escherichia Coli 02/19/21 Blood Culture - Preliminary, Resulted No Growth after 72 hours. All specime... DENISSE FARFAN DO Feb 23, 2021 18:50
[2021-02-23 19:36] LABS: BLOOD UREA NITROGEN 5 MG/DL (7-18); CALCIUM LEVEL 8.7 MG/DL (8.8-10.2); CARBON DIOXIDE LEVEL 29 MEQ/L (21-32); CHLORIDE LEVEL 106 MEQ/L (98-107); CREATININE FOR GFR 0.64 MG/DL (0.55-1.30); GLOMERULAR FILTRATION RATE > 60.0 (>39); GLUCOSE, FASTING 133 MG/DL (70-100); POTASSIUM SERUM 3.3 MEQ/L (3.5-5.1); SODIUM LEVEL 141 MEQ/L (136-145)
[2021-02-23] MEDS: METAXALONE 400 MG 1/2 TAB PO SCH (20:57)
[2021-02-23] MEDS: SIMVASTATIN 40 MG TAB PO SCH (20:57)
[2021-02-23] MEDS: TIMOLOL MALEATE 0.5% OPHTH SOLN 5 ML OU SCH (20:58)
[2021-02-23] MEDS: BRIMONIDINE 0.15% OPHTH SOLN 5 ML OU SCH (20:58)
[2021-02-23] MEDS ORDERED: LATANOPROST 0.005% OPHTH SOLN 2.5 ML OU SCH (21:00)
[2021-02-23 22:00] VITALS: BP 150/95
[2021-02-24] MEDS: PIPERACILLIN/TAZOBACTAM SOD 4.5 GM in D5W MINI-BAG PLUS 50 ML IV SCH (04:47)
[2021-02-24 06:00] VITALS: BP 148/90
[2021-02-24 06:50] LABS: HEMATOCRIT 37.4 % (36.0-47.0); HEMOGLOBIN 12.3 g/dl (12.0-15.5); MEAN CORPUSCULAR HEMOGLOBIN 30.8 pg (27.0-33.0); MEAN CORPUSCULAR HGB CONC 32.9 g/dl (32.0-36.5); MEAN CORPUSCULAR VOLUME 93.5 fl (80.0-96.0); PLATELET COUNT, AUTOMATED 232 10^3/uL (150-450); WHITE BLOOD COUNT 5.1 10^3/uL (4.0-10.0)
[2021-02-24 07:17] LABS: BLOOD UREA NITROGEN 5 MG/DL (7-18); CALCIUM LEVEL 8.6 MG/DL (8.8-10.2); CARBON DIOXIDE LEVEL 26 MEQ/L (21-32); CHLORIDE LEVEL 107 MEQ/L (98-107); CREATININE FOR GFR 0.58 MG/DL (0.55-1.30); GLOMERULAR FILTRATION RATE > 60.0 (>39); GLUCOSE, FASTING 108 MG/DL (70-100); MAGNESIUM LEVEL 1.9 MG/DL (1.8-2.4); POTASSIUM SERUM 3.1 MEQ/L (3.5-5.1); SODIUM LEVEL 139 MEQ/L (136-145)
[2021-02-24] MEDS ORDERED: POTASSIUM CHLORIDE 10 MEQ SR TABLET PO ONE (07:35)
[2021-02-24] MEDS ORDERED: HYDROCORTISONE 1% CREAM 30 GM TOP PRN (08:15)
[2021-02-24] MEDS: ENOXAPARIN 40MG/0.4ML SYRINGE (J1650 PER 10MG) SC SCH (08:42)
[2021-02-24] MEDS: ASCORBIC ACID 500 MG TAB PO SCH (08:42)
[2021-02-24 08:51] VITALS: BP 146/84
[2021-02-24] MEDS: hydroCHLOROthiazide 12.5 MG CAPSULE PO SCH (08:51)
[2021-02-24] MEDS: amLODIPine 5 MG TAB PO SCH (08:51)
[2021-02-24] MEDS: BRIMONIDINE 0.15% OPHTH SOLN 5 ML OU SCH (08:52)
[2021-02-24] MEDS: TIMOLOL MALEATE 0.5% OPHTH SOLN 5 ML OU SCH (08:52)
[2021-02-24] MEDS: lisinopriL 5 MG TAB PO SCH (08:52)
[2021-02-24] MEDS: POLYVINYL ALCOHOL OPHTH SOLN 15 ML(LIQUITEARS) OU SCH (08:52)
[2021-02-24] MEDS ORDERED: AUGMENTIN 875 MG TAB PO SCH ×2 (09:00→12:00)
[2021-02-24] MEDS ORDERED: OXYC-517 PO (09:48)
[2021-02-24] MEDS ORDERED: AMOX875T2 PO (09:48)
[2021-02-24] MEDS ORDERED: LISI10TA15 PO (09:48)
--- NOTE | 2021-02-24 22:09 | DS.PDOC ---
Discharge Summary General Date of Admission Feb 19, 2021 at 12:14 Date of Discharge February 24, 2021 Discharge Summary PROCEDURES PERFORMED DURING STAY: None ADMITTING DIAGNOSES: 1. Acute sigmoid diverticulitis 2. Hypertensive urgency 3. Hypokalemia 4. Chronic back pain 5. UTI 6. Hyperlipidemia 7. Glaucoma 8. Neuropathy DISCHARGE DIAGNOSES: 1. Acute sigmoid diverticulitis 2. Hypertensive urgency 3. Hypokalemia 4. Chronic back pain 5. UTI 6. Hyperlipidemia 7. Glaucoma 8. Neuropathy COMPLICATIONS/CHIEF COMPLAINT: Diverticulitis,Hypertension. HISTORY OF PRESENT ILLNESS: Copied from admitting provider's H&P " 70-year-old female with a past medical history of hyperlipidemia spinal stenosis hypertension arthritis of the spine kidney stones diverticulosis glucoma presented to the ER after she developed abdominal pain earlier this morning located in the left lower quadrant. She woke up with this pain is unrelated to eating. She denies any fevers chills nausea vomiting or diarrhea. She has no history of melena and her last colonoscopy was approximately 6 months ago which revealed diverticulosis. Patient denies any chest pain palpitations shortness of breath or blurred vision. CT scan of the abdomen showing diverticulitis in the sigmoid colon. She has mild leukocytosis of 10.3. She was found to have hypertensive urgency in the ER blood pressure systolic 200. She received 20 mg of IV labetalol. Patient states that she had previously had hypertension but does not take any medication. She was started on IV Zosyn and IV fluids. Patient be admitted to PCU under hospitalist service for the management of hypertensive urgency as well as diverticulitis seen on CT scan. " HOSPITAL COURSE: Patient was on put on amlodipine and HCTZ to help control blood pressure. Eventually needed to add on lisinopril. Since patient was on simvastatin, amlodipine was discontinued and lisinopril was increased. Otherwise, while on antibiotics and bowel rest, abdominal pain improved. Diet was advanced as tolerated to residue soft diet. This morning, she felt better and was tolerating a soft residue diet. Denies abdominal pain or nausea. She still had mild left lower quadrant abdominal pain, but better than admission. Patient felt ready for home and was discharged with PO antibiotics. DISCHARGE MEDICATIONS: Please see below. ALLERGIES: Please see below. PHYSICAL EXAMINATION ON DISCHARGE: VITAL SIGNS: Please see below. GENERAL: Comfortable, in no apparent distress HEENT: Head normocephalic, atraumatic NECK: Supple CARDIOVASCULAR EXAMINATION: Regular rate and rhythm RESPIRATORY EXAMINATION: Lungs clear to auscultation bilaterally ABDOMINAL EXAMINATION: Soft, normal bowel sounds, mild tenderness in the left lower quadrant SKIN: Warm and dry PSYCHIATRIC EXAMINATION: Normal mood and affect LABORATORY DATA: Please see below. IMAGING: Radiologist interpretation CT abd/pelvis with IV contrast only Sigmoid diverticulitis. No free fluid or abscess. Renal US 1. Lobulated renal contour with areas of parenchymal scarring, right greater than left. No evidence of hydronephrosis. 2. No evidence of hemodynamically significant renal artery stenosis, however, the proximal left renal artery is obscured by bowel gas. Repeat CT abd/pelvis 1. Continued evidence for sigmoid diverticulitis. No drainable collection/abscess. No obstruction. No significant free air. 2. Mild bibasilar atelectasis. 3. Stable nonacute findings. PROGNOSIS: Good ACTIVITY: As tolerated. DIET: Low residue diet DISCHARGE PLAN: Home DISPOSITION: Home, Self-Care. DISCHARGE INSTRUCTIONS: 1. Follow up with PCP in 1 week 2. Follow up with Dr. Ronquillo in 1 month 3. Continue antibiotics to completion (Augmentin 875mg TID for 7 days) ITEMS TO FOLLOWUP ON ON OUTPATIENT: 1. Hypertension 2. Hypokalemia DISCHARGE CONDITION: Stable Total time spent on discharge planning, discharge summary, and medication reconciliation: 45 minutes Vital Signs/I&Os Vital Signs Date Time Temp Pulse Resp B/P (MAP) Pulse Ox O2 Delivery O2 Flow Rate FiO2 02/24/21 08:51 72 146/84 02/24/21 06:00 97.9 16 94 Room Air I&O- Last 24 Hours up to 6 AM 02/24/21 06:00 Intake Total 3425 ml Output Total 200 ml Balance 3225 ml Laboratory Data Labs 24H Laboratory Tests 2 02/24/21 06:33: Nucleated Red Blood Cells % (auto) 0.0, Anion Gap 6L, Glomerular Filtration Rate > 60.0, Calcium Level 8.6L, Magnesium Level 1.9 CBC/BMP Laboratory Tests 02/24/21 06:33 Microbiology Microbiology 02/19/21 Blood Culture - Final, Complete NO GROWTH AFTER 5 DAYS 02/19/21 Urine Culture - Final, Complete Escherichia Coli 02/19/21 Blood Culture - Final, Complete NO GROWTH AFTER 5 DAYS Discharge Medications Scheduled Amoxicillin/Potassium Clav (Amox-Clav 875-125 mg Tablet) 1 Each Tablet, 875 MG PO TID Ascorbic Acid (Vitamin C) 500 Mg Tab, 500 MG PO BID, (Reported) Bimatoprost (Lumigan) 50 Drop/2.5 Ml Lu, 1 DROP OU QHS, (Reported) Brimonidine Tartrate/Timolol (Combigan 0.2%-0.5% Eye Drops) 1 Lu Lu, 1 DROP OU BID, (Reported) Calcium Carbonate/Vitamin D3 (Calcium 600 + Vit D 400 Softgl) 1 Each Capsule, 1 CAP PO QHS, (Reported) Celecoxib (Celecoxib) 200 Mg Cap, 200 MG PO QHS, (Reported) Cholecalciferol (Vitamin D3) (Vitamin D3) 25 Mcg Tablet, 25 MCG PO DAILY, (Reported) Cholecalciferol (Vitamin D3) (Vitamin D3) 25 Mcg Capsule, 50 MCG PO QHS, (Reported) Cinnamon Bark (Cinnamon) 500 Mg Capsule, 500 MG PO BID, (Reported) Garlic (Garlic Oil) 1,000 Mg Capsule, 1,000 MG PO BID, (Reported) Lisinopril/Hydrochlorothiazide (Lisinopril-Hctz 10-12.5 mg Tab) 1 Each Tablet, 1 TAB PO DAILY Metaxalone (Metaxalone) 800 Mg Tablet, 400 MG PO QHS, (Reported) Multivitamins (Thera M Plus Tablet) 1 Each Tablet, 1 TAB PO DAILY, (Reported) Pantoprazole Sodium (Pantoprazole Sodium) 40 Mg Tab, 40 MG PO DAILY, (Reported) Simvastatin (Simvastatin) 40 Mg Tablet, 40 MG PO QHS, (Reported) Vitamin E (Vitamin E) 400 Unit Capsule, 400 UNIT PO DAILY, (Reported) Scheduled PRN Acetaminophen (Tylenol Arthritis) 650 Mg Tablet.er, 1,300 MG PO Q8H PRN for PAIN LEVEL 4-7, (Reported) Oxycodone HCl (Oxycodone HCl) 5 Mg Tablet, 5 MG PO Q6HP PRN for MODERATE PAIN (PS 5-7) Tramadol HCl (Tramadol HCl) 50 Mg Tablet, 50 MG PO BID PRN for PAIN LEVEL 8-10, (Reported) Allergies Coded Allergies: No Known Allergies (Unverified , 03/13/20) DENISSE FARFAN DO Feb 24, 2021 22:09
[2021-02-25 18:07] LABS: DOPAMINE PLASMA <30 pg/mL (0-48); EPINEPHRINE PLASMA <15 pg/mL (0-62); METANEPHRINE PLASMA 18.4 pg/mL (0.0-88.0); NOREPINEPHRINE PLASMA 776 pg/mL (0-874); NORMETANEPHRINE PLASMA 83.7 pg/mL (0.0-191.8)
== END 2021-02-24 12:57 | disposition home or self-care (01) | DRG 392 ==
LOC: M ED 08:02 → M ED INP 12:14 → ENRESERV 13:40 → M PCU 15:24 → M MSPAV 02-22 05:55
PROVIDERS: ADMIT Family Medicine; ATTEND Internal Medicine
DX: K57.32 Diverticulitis of large intestine without perforation or abscess without bleeding (principal); N39.0 Urinary tract infection, site not specified; E78.5 Hyperlipidemia, unspecified; M48.00 Spinal stenosis, site unspecified; I10 Essential (primary) hypertension; H40.9 Unspecified glaucoma; M47.9 Spondylosis, unspecified; K64.8 Other hemorrhoids; I16.0 Hypertensive urgency; G62.9 Polyneuropathy, unspecified; Z20.822 Contact with and (suspected) exposure to COVID-19; Z79.899 Other long term (current) drug therapy; E80.7 Disorder of bilirubin metabolism, unspecified; B96.20 Unspecified Escherichia coli [E. coli] as the cause of diseases classified elsewhere; E87.6 Hypokalemia

== ENCOUNTER 2021-08-27 12:11 | Emergency (ER) | payer MEDICARE ==
[~2021-08-27] VITALS: Ht 152.4 cm; Wt 86.4 kg
[~2021-08-27 12:11] MED LIST changes: +ACET650T61 PO; +AMOX875T2 PO; +CALCCAP4 PO; +CINN500C2 PO; +D3 H10002 PO; +LISI10TA24 PO; +OXYC-517 PO; +SIMV40TA20 PO; +VITA100066 PO; +VITA400C50 PO; +VITMTA PO
[2021-08-27] MEDS ORDERED: diazePAM 10MG/2ML SYRINGE (J3360 PER 5MG) IV ONE (12:30)
[2021-08-27] MEDS ORDERED: ONDANSETRON 4MG/2ML VIAL IV ONE (12:30)
[2021-08-27 12:53] LABS: BASO % 0.4 % (0.0-1.0); EOS # 0.1 10^3/uL (0.0-0.5); EOS % 1.4 % (0.0-3.0); HEMATOCRIT 36.9 % (36.0-47.0); HEMOGLOBIN 12.2 g/dl (12.0-15.5); LYMPH # 0.9 10^3/uL (1.5-5.0); LYMPH % 13.4 % (24.0-44.0); MEAN CORPUSCULAR HEMOGLOBIN 31.3 pg (27.0-33.0); MEAN CORPUSCULAR HGB CONC 33.1 g/dl (32.0-36.5); MEAN CORPUSCULAR VOLUME 94.6 fl (80.0-96.0); MONO # 0.4 10^3/uL (0.0-0.8); NEUTROPHILS # 5.5 10^3/uL (1.5-8.5); NEUTROPHILS % 78.5 % (36.0-66.0); PLATELET COUNT, AUTOMATED 264 10^3/uL (150-450)
[2021-08-27 13:25] LABS: ALBUMIN 3.5 GM/DL (3.2-5.2); ALT/SGPT 18 U/L (12-78); BILIRUBIN,DIRECT 0.2 MG/DL (0.0-0.2); BILIRUBIN,TOTAL 0.6 MG/DL (0.2-1.0); BLOOD UREA NITROGEN 27 MG/DL (7-18); CALCIUM LEVEL 9.3 MG/DL (8.8-10.2); CARBON DIOXIDE LEVEL 27 MEQ/L (21-32); CHLORIDE LEVEL 100 MEQ/L (98-107); GLOMERULAR FILTRATION RATE > 60.0 (>39); GLUCOSE, FASTING 130 MG/DL (70-100); POTASSIUM SERUM 4.3 MEQ/L (3.5-5.1); SODIUM LEVEL 134 MEQ/L (136-145); TOTAL PROTEIN 6.6 GM/DL (6.4-8.2)
[2021-08-27] MEDS ORDERED: MECLIZINE 25 MG TABLET PO ONE (13:45)
[2021-08-27] MEDS ORDERED: MECL1TAB31 PO (16:36)
[2021-08-27] MEDS ORDERED: Vestibular PT (16:36)
[2021-08-27 16:47] VITALS: BP 142/81
== END 2021-08-27 16:48 | disposition home or self-care (01) ==
LOC: M ED 12:11
DX: H81.10 Benign paroxysmal vertigo, unspecified ear (principal); E78.5 Hyperlipidemia, unspecified; K44.9 Diaphragmatic hernia without obstruction or gangrene; Z79.899 Other long term (current) drug therapy
CPT/HCPCS: 70450; 70544; 70551; 80048; 80076; 84443; 84484; 85025; 93005; 93041; 94760; 96374; 96375; 99285; J2405; J3360

== ENCOUNTER → 2022-01-17 | Outpatient (CLI) | payer MEDICARE ==
[~2022-01-17] MED LIST changes: +MECL1TAB31 PO; +Vestibular PT
== END ==
LOC: M WHC 08:26
PROVIDERS: ATTEND Internal Medicine
DX: Z12.31 Encounter for screening mammogram for malignant neoplasm of breast (principal)

== ENCOUNTER → 2022-03-08 | Outpatient (CLI) | payer MEDICARE ==
[~2022-03-08] MED LIST changes: +ISOVUE-300 61% 50ML VIAL As Ordered ONE; +LIDOCAINE 1% MDV 20ML VIAL As Ordered ONE; +methylPREDNISolone SUSP 40MG/ML 1ML VIAL (DEPO MEDROL) As Ordered ONE
== END ==
LOC: M RADPRO 12:38
PROVIDERS: ATTEND Physician Assistant
DX: M19.011 Primary osteoarthritis, right shoulder (principal)
CPT/HCPCS: 20610; 76000; J1030; Q9967

== ENCOUNTER → 2022-04-16 | Outpatient (REF) | payer MEDICARE ==
[~2022-04-16] MED LIST changes: -ISOVUE-300 61% 50ML VIAL As Ordered ONE; -LIDOCAINE 1% MDV 20ML VIAL As Ordered ONE; -methylPREDNISolone SUSP 40MG/ML 1ML VIAL (DEPO MEDROL) As Ordered ONE
== END ==
LOC: M LAB REF 19:18
PROVIDERS: ATTEND Physician Assistant
DX: R30.0 Dysuria (principal)

== ENCOUNTER → 2022-04-18 | Outpatient (CLI) | payer MEDICARE ==
[~2022-04-18] MED LIST changes: +ISOVUE-300 61% 50ML VIAL ONE; +LIDOCAINE 1% MDV 20ML VIAL ONE; +methylPREDNISolone SUSP 40MG/ML 1ML VIAL (DEPO MEDROL) ONE
== END ==
LOC: M PLARAD 14:15 → M RADPRO 14:15
PROVIDERS: ATTEND Physician Assistant
DX: M75.42 Impingement syndrome of left shoulder (principal)
CPT/HCPCS: 20610; 76000; J1030; Q9967

== ENCOUNTER → 2022-09-05 | Outpatient (CLI) | payer MEDICARE ==
[~2022-09-05] MED LIST changes: -ISOVUE-300 61% 50ML VIAL ONE; -LIDOCAINE 1% MDV 20ML VIAL ONE; -methylPREDNISolone SUSP 40MG/ML 1ML VIAL (DEPO MEDROL) ONE
== END ==
LOC: M RAD 10:23
PROVIDERS: ATTEND Internal Medicine
DX: I67.1 Cerebral aneurysm, nonruptured (principal)

== ENCOUNTER → 2022-12-07 | Outpatient (CLI) | payer MEDICARE ==
[~2022-12-07] MED LIST changes: +ISOVUE-300 61% 100ML VIAL As Ordered ONE; +LIDOCAINE 1% MDV 20ML VIAL As Ordered ONE; +methylPREDNISolone SUSP 40MG/ML 1ML VIAL (DEPO MEDROL) As Ordered ONE
== END ==
LOC: M RAD 14:29
PROVIDERS: ATTEND Physician Assistant
DX: M19.012 Primary osteoarthritis, left shoulder (principal)
CPT/HCPCS: 20610; 77002; J1030; Q9967

== ENCOUNTER → 2023-02-22 | Outpatient (CLI) | payer MEDICARE ==
[~2023-02-22] MED LIST changes: -ISOVUE-300 61% 100ML VIAL As Ordered ONE; -LIDOCAINE 1% MDV 20ML VIAL As Ordered ONE; -methylPREDNISolone SUSP 40MG/ML 1ML VIAL (DEPO MEDROL) As Ordered ONE
== END ==
LOC: M WHC 16:09
PROVIDERS: ATTEND Internal Medicine
DX: Z12.31 Encounter for screening mammogram for malignant neoplasm of breast (principal)

== ENCOUNTER → 2023-04-19 | Outpatient (CLI) | payer MEDICARE ==
[~2023-04-19] MED LIST changes: +CELE0.09 PO; -CELE1CAP7; -CELE1CAP9 PO; +CELE1CAP99; +ISOVUE-300 61% 100ML VIAL As Ordered ONE; +LIDOCAINE 1% MDV 20ML VIAL As Ordered ONE; +MECL-209 PO; -MECL1TAB31 PO; +TRIAMCINOLONE ACETONIDE SUSP 40MG/ML 1ML VIAL As Ordered ONE
== END ==
LOC: M RAD 12:45
PROVIDERS: ATTEND Orthopaedic Surgery
DX: M16.12 Unilateral primary osteoarthritis, left hip (principal); M25.752 Osteophyte, left hip
CPT/HCPCS: 20610; 77002; J3301; Q9967

== ENCOUNTER 2023-06-01 15:44 | Emergency (ER) | payer MEDICARE ==
[~2023-06-01] VITALS: Ht 149.9 cm; Wt 84.0 kg
[~2023-06-01 15:44] MED LIST changes: -ISOVUE-300 61% 100ML VIAL As Ordered ONE; -LIDOCAINE 1% MDV 20ML VIAL As Ordered ONE; -TRIAMCINOLONE ACETONIDE SUSP 40MG/ML 1ML VIAL As Ordered ONE
[2023-06-01] MEDS ORDERED: LISI20TA35 (15:55)
[2023-06-01 17:15] LABS: BASO % 0.3 % (0.0-1.0); EOS % 0.3 % (0.0-3.0); HEMATOCRIT 37.2 % (36.0-47.0); HEMOGLOBIN 12.1 g/dl (12.0-15.5); LYMPH # 1.1 10^3/uL (1.5-5.0); MEAN CORPUSCULAR HEMOGLOBIN 30.8 pg (27.0-33.0); MEAN CORPUSCULAR HGB CONC 32.5 g/dl (32.0-36.5); MEAN CORPUSCULAR VOLUME 94.7 fl (80.0-96.0); MONO # 0.6 10^3/uL (0.0-0.8); NEUTROPHILS # 8.8 10^3/uL (1.5-8.5); NEUTROPHILS % 82.9 % (36.0-66.0); PLATELET COUNT, AUTOMATED 250 10^3/uL (150-450); RED BLOOD COUNT 3.93 10^6/uL (4.00-5.40); WHITE BLOOD COUNT 10.6 10^3/uL (4.0-10.0)
[2023-06-01 17:36] LABS: LIPASE 52 U/L (12-53)
[2023-06-01 17:38] LABS: ALBUMIN 3.5 G/DL (3.2-5.2); ALKALINE PHOSPHATASE 72 U/L (46-116); ALT/SGPT 17 U/L (7.0-40); AST/SGOT 15 U/L (<34); BILIRUBIN,DIRECT 0.3 MG/DL (<0.4); BILIRUBIN,TOTAL 1.1 MG/DL (0.3-1.2); BLOOD UREA NITROGEN 25 MG/DL (9-23); CALCIUM LEVEL 9.5 MG/DL (8.3-10.6); CARBON DIOXIDE LEVEL 30 MMOL/L (20-31); CHLORIDE LEVEL 101 MMOL/L (98-107); CREATININE FOR GFR 0.65 MG/DL (0.55-1.30); GLOMERULAR FILTRATION RATE > 60.0 (>39); GLUCOSE, FASTING 100 MG/DL (74-106); POTASSIUM SERUM 3.8 MMOL/L (3.5-5.1); SODIUM LEVEL 139 MMOL/L (136-145); TOTAL PROTEIN 6.7 G/DL (5.7-8.2)
[2023-06-01] MEDS ORDERED: VITA100093 PO (18:37)
[2023-06-01] MEDS ORDERED: MORPHINE 4 MG/ML 1ML VIAL IV ONE (19:55)
[2023-06-01] MEDS ORDERED: ONDANSETRON 4MG 2ML VIAL IV ONE (19:55)
[2023-06-01] MEDS ORDERED: ISOVUE-370 76% 100ML VIAL As Ordered ONE (19:56)
[2023-06-01 20:55] VITALS: BP 141/76; TEMP 97.8; O2SAT 94
[2023-06-01] MEDS ORDERED: AMOX875T2 PO (21:02)
[2023-06-01] MEDS ORDERED: ACET300T48 PO (21:02)
[2023-06-01] MEDS ORDERED: AUGMENTIN 875 MG TAB PO ONE (21:05)
== END 2023-06-01 21:51 | disposition home or self-care (01) ==
LOC: M ED 15:44
DX: K57.32 Diverticulitis of large intestine without perforation or abscess without bleeding (principal); K21.9 Gastro-esophageal reflux disease without esophagitis; M48.00 Spinal stenosis, site unspecified; E78.5 Hyperlipidemia, unspecified; G62.9 Polyneuropathy, unspecified; Z79.899 Other long term (current) drug therapy
CPT/HCPCS: 74177; 80048; 80076; 81001; 83690; 85025; 87088; 87186; 96374; 96375; 99284; J2405; Q9967

== ENCOUNTER → 2023-07-01 | Outpatient (CLI) | payer MEDICARE ==
[~2023-07-01] MED LIST changes: +ACET300T48 PO; +LISI20TA35; +VITA100093 PO
[2023-07-01 12:13] LABS: BASO % 0.3 % (0.0-1.0); EOS # 0.2 10^3/uL (0.0-0.5); EOS % 2.7 % (0.0-3.0); HEMATOCRIT 34.3 % (36.0-47.0); LYMPH # 1.4 10^3/uL (1.5-5.0); MEAN CORPUSCULAR HGB CONC 32.1 g/dl (32.0-36.5); MEAN CORPUSCULAR VOLUME 96.6 fl (80.0-96.0); MONO # 0.5 10^3/uL (0.0-0.8); MONO % 7.8 % (2.0-8.0); NEUTROPHILS # 3.8 10^3/uL (1.5-8.5); NEUTROPHILS % 64.9 % (36.0-66.0); PLATELET COUNT, AUTOMATED 210 10^3/uL (150-450); RED BLOOD COUNT 3.55 10^6/uL (4.00-5.40); WHITE BLOOD COUNT 5.9 10^3/uL (4.0-10.0)
[2023-07-01 12:24] LABS: ALBUMIN 3.4 G/DL (3.2-5.2)
[2023-07-01 12:31] LABS: PERCENT SATURATION 17.9 % (13.2-45.0)
== END ==
LOC: M LAB 10:11
PROVIDERS: ATTEND Orthopaedic Surgery
DX: Z01.812 Encounter for preprocedural laboratory examination (principal); D63.8 Anemia in other chronic diseases classified elsewhere; M16.9 Osteoarthritis of hip, unspecified; M25.552 Pain in left hip

== ENCOUNTER → 2023-08-07 | Outpatient (CLI) | payer MEDICARE ==
[~2023-08-07] MED LIST changes: +ASPI-164 PO; +AZO1CAP PO; +AZO1CAP2 PO; +CELE100C PO; +CINN500C15 PO; +COEN100T PO; +COLL1TAB PO; +COLLCAP PO; +D-MA500C2 PO; +DAILTAB22 PO; +GLUC1TAB58 PO; +MAGN400C2 PO; +OCUV1CAP4 PO; +POTA540T PO; +RA K500C PO; +RA T500C2 PO; +SENN1TAB96 PO; +THERTAB21 PO; +VITA-148 PO; +VITA100065 PO
== END ==
LOC: M WUC 15:51
PROVIDERS: ATTEND Nurse Practitioner Family
DX: K59.00 Constipation, unspecified (principal)

== ENCOUNTER 2023-08-08 08:30 | Inpatient (IN) | payer MEDICARE ==
[~2023-08-08] VITALS: Ht 167.6 cm; Wt 85.5 kg
[~2023-08-08 08:30] MED LIST changes: -ASPI-164 PO; -AZO1CAP PO; -AZO1CAP2 PO; -CELE100C PO; -CINN500C15 PO; -COEN100T PO; -COLL1TAB PO; -COLLCAP PO; -D-MA500C2 PO; -DAILTAB22 PO; -GLUC1TAB58 PO; -MAGN400C2 PO; -OCUV1CAP4 PO; -POTA540T PO; -RA K500C PO; -RA T500C2 PO; -SENN1TAB96 PO; -THERTAB21 PO; -VITA-148 PO; -VITA100065 PO
[2023-08-08] MEDS ORDERED: ASPI-164 PO (08:48)
[2023-08-08] MEDS ORDERED: OXYC-517 PO (08:48)
[2023-08-08] MEDS ORDERED: SENN1TAB96 PO (08:48)
[2023-08-08] MEDS: NS 1,000 ML IV SCH ×3 (09:35→18:39)
[2023-08-08 10:39] LABS: VENOUS BASE EXCESS -1.6 (-2.0-2.0); VENOUS HCO3 23.4 MMOL/L (23.0-27.0); VENOUS O2 SATURATION 47.7 % (60.0-80.0); VENOUS PARTIAL PRESSURE CO2 40.5 mmHg (38.0-50.0); VENOUS PARTIAL PRESSURE O2 24.8 mmHg (30.0-50.0); VENOUS PH 7.379 UNITS (7.330-7.430); VENOUS STANDARD HCO3 22.3 MMOL/L; VENOUS TOTAL CO2 24.6 MMOL/L (24.0-28.0)
[2023-08-08 10:43] LABS: HEMATOCRIT 26.9 % (36.0-47.0); HEMOGLOBIN 8.7 g/dl (12.0-15.5); MEAN CORPUSCULAR HEMOGLOBIN 30.9 pg (27.0-33.0); MEAN CORPUSCULAR HGB CONC 32.3 g/dl (32.0-36.5); MEAN CORPUSCULAR VOLUME 95.4 fl (80.0-96.0); PLATELET COUNT, AUTOMATED 393 10^3/uL (150-450); RED BLOOD COUNT 2.82 10^6/uL (4.00-5.40); WHITE BLOOD COUNT 15.5 10^3/uL (4.0-10.0)
[2023-08-08 11:01] LABS: INR 1.18; PROTHROMBIN TIME 14.6 SECONDS (12.5-14.5)
[2023-08-08 11:06] LABS: ALBUMIN 1.7 G/DL (3.2-5.2); BILIRUBIN,DIRECT 0.4 MG/DL (<0.4); BILIRUBIN,TOTAL 0.8 MG/DL (0.3-1.2); CALCIUM LEVEL 9.1 MG/DL (8.3-10.6); CREATININE FOR GFR 1.19 MG/DL (0.55-1.30); GLOMERULAR FILTRATION RATE 47.3 (>39); POTASSIUM SERUM 5.1 MMOL/L (3.5-5.1); TOTAL PROTEIN 5.7 G/DL (5.7-8.2)
[2023-08-08 11:15] LABS: ATYPICAL LYMPH 3 % (0-5); EOSINOPHILS 2 % (0-3); LYMPHOCYTES 2 % (16-44); METAMYELOCYTES 2 % (0-0); MONOCYTES 5 % (0-5); NEUTROPHILS 86 % (28-66); PLATELET ESTIMATE NORMAL (NORMAL)
[2023-08-08 11:16] LABS: GIANT PLATELETS 1+; HYPOCHROMASIA 1+; TOXIC GRANULATION 1+
[2023-08-08] MEDS ORDERED: ISOVUE-370 76% 100ML VIAL As Ordered ONE (11:23)
[2023-08-08 12:08] LABS: FREE T4 1.28 NG/DL (0.89-1.76); THYROID STIMULATING HORMONE 2.816 uIU/ML (0.55-4.78)
[2023-08-08 12:24] LABS: CREATININE,RANDOM URINE 35.7 MG/DL
[2023-08-08] MEDS ORDERED: VITA-148 PO (13:18)
[2023-08-08] MEDS ORDERED: DAILTAB22 PO (13:18)
[2023-08-08] MEDS ORDERED: THERTAB21 PO (13:18)
[2023-08-08] MEDS: PIPERACILLIN/TAZOBACTAM SOD 4.5 GM in D5W MINI-BAG PLUS 50 ML IV ONE (13:18)
[2023-08-08] MEDS ORDERED: VITA100093 PO (13:18)
[2023-08-08] MEDS: ONDANSETRON 4MG 2ML VIAL IV ONE (13:18)
[2023-08-08] MEDS: MORPHINE 2 MG/ML 1ML VIAL IV PRN ×4 (13:19→23:07)
[2023-08-08] MEDS ORDERED: AZO1CAP2 PO (14:25)
[2023-08-08] MEDS ORDERED: COLLCAP PO (14:25)
[2023-08-08] MEDS ORDERED: RA K500C PO (14:25)
[2023-08-08] MEDS ORDERED: OCUV1CAP4 PO (14:25)
[2023-08-08] MEDS ORDERED: AZO1CAP PO (14:25)
[2023-08-08] MEDS ORDERED: COLL1TAB PO (14:25)
[2023-08-08] MEDS ORDERED: CELE100C PO (14:25)
[2023-08-08] MEDS ORDERED: GLUC1TAB58 PO (14:25)
[2023-08-08] MEDS ORDERED: RA T500C2 PO (14:25)
[2023-08-08] MEDS ORDERED: VITA100065 PO (14:25)
[2023-08-08] MEDS ORDERED: D-MA500C2 PO (14:25)
[2023-08-08] MEDS ORDERED: COEN100T PO (14:25)
[2023-08-08] MEDS ORDERED: CINN500C15 PO (14:25)
[2023-08-08] MEDS ORDERED: POTA540T PO (14:25)
[2023-08-08] MEDS ORDERED: MAGN400C2 PO (14:25)
[2023-08-08] MEDS ORDERED: LIDOCAINE 1% MDV 20ML VIAL As Ordered ONE (14:26)
[2023-08-08] MEDS ORDERED: MORPHINE 10 MG/ML 1ML VIAL As Ordered ONE (14:30)
[2023-08-08] MEDS ORDERED: CELE0.09 PO (14:35)
[2023-08-08] MEDS ORDERED: HOME MED LIST COMPLETE! XX SCH (14:40)
[2023-08-08] MEDS ORDERED: MOM 30ML SUSPENSION UDC PO PRN (15:30)
[2023-08-08 16:29] LABS: RSV AMPLIFICATION NEGATIVE (NEGATIVE)
[2023-08-08 17:23] LABS: CALCIUM LEVEL 9.2 MG/DL (8.3-10.6); CREATININE FOR GFR 1.17 MG/DL (0.55-1.30); GLOMERULAR FILTRATION RATE 48.3 (>39); POTASSIUM SERUM 5.3 MMOL/L (3.5-5.1)
[2023-08-08 17:55] VITALS: BP 117/74; TEMP 98.2; O2SAT 95
[2023-08-08 18:33] LABS: CALCIUM LEVEL 8.9 MG/DL (8.3-10.6); CREATININE FOR GFR 1.13 MG/DL (0.55-1.30); GLOMERULAR FILTRATION RATE 50.2 (>39); POTASSIUM SERUM 4.9 MMOL/L (3.5-5.1)
[2023-08-08 19:34] LABS: HEMOGLOBIN 9.5 g/dl (12.0-15.5)
[2023-08-08] MEDS: HEPARIN SOD (PORCINE) 5000UNITS/ML 1ML VIAL/SYRINGE SC SCH (20:35)
[2023-08-08] MEDS: DOCUSATE SODIUM 100MG CAPSULE PO SCH (20:36)
[2023-08-08] MEDS: PIPERACILLIN/TAZOBACTAM SOD 3.375 GM in D5W MINI-BAG PLUS 50 ML IV SCH (20:36)
[2023-08-08 21:05] VITALS: BP 107/59; TEMP 97.7; O2SAT 95
[2023-08-08 23:08] VITALS: BP 117/68; TEMP 98; O2SAT 95
[2023-08-09] VITALS (7 sets, daily range): BP systolic 107–125; BP diastolic 55–75; TEMP 97.2–97.9; O2SAT 86–96
[2023-08-09] MEDS: MORPHINE 2 MG/ML 1ML VIAL IV ONE (02:31)
[2023-08-09] MEDS: KETOROLAC 30 MG/ML 1ML VIAL IV ONE (05:19)
[2023-08-09 06:20] LABS: BASO % 0.2 % (0.0-1.0); EOS % 0.3 % (0.0-3.0); HEMATOCRIT 28.8 % (36.0-47.0); HEMOGLOBIN 9.4 g/dl (12.0-15.5); LYMPH # 0.9 10^3/uL (1.5-5.0); LYMPH % 7.1 % (24.0-44.0); MEAN CORPUSCULAR HEMOGLOBIN 30.7 pg (27.0-33.0); MEAN CORPUSCULAR HGB CONC 32.6 g/dl (32.0-36.5); MEAN CORPUSCULAR VOLUME 94.1 fl (80.0-96.0); MONO % 7.8 % (2.0-8.0); NEUTROPHILS % 76.9 % (36.0-66.0); PLATELET COUNT, AUTOMATED 448 10^3/uL (150-450); RED BLOOD COUNT 3.06 10^6/uL (4.00-5.40)
[2023-08-09 06:48] LABS: ALBUMIN 1.5 G/DL (3.2-5.2); BILIRUBIN,TOTAL 0.7 MG/DL (0.3-1.2); CALCIUM LEVEL 8.6 MG/DL (8.3-10.6); CREATININE FOR GFR 1.21 MG/DL (0.55-1.30); GLOMERULAR FILTRATION RATE 46.4 (>39); TOTAL PROTEIN 5.5 G/DL (5.7-8.2)
[2023-08-09] MEDS: NS 1,000 ML IV SCH (08:43)
[2023-08-09] MEDS: PERCOCET 5MG/325MG TAB PO PRN ×2 (08:49→13:13)
[2023-08-09 13:22] LABS: CALCIUM LEVEL 8.4 MG/DL (8.3-10.6); CREATININE FOR GFR 1.58 MG/DL (0.55-1.30); GLOMERULAR FILTRATION RATE 34.1 (>39); POTASSIUM SERUM 5.1 MMOL/L (3.5-5.1)
[2023-08-09] MEDS ORDERED: KETOROLAC 30 MG/ML 1ML VIAL IV SCH (14:00)
[2023-08-09 18:25] LABS: CALCIUM LEVEL 8.1 MG/DL (8.3-10.6); CREATININE FOR GFR 1.71 MG/DL (0.55-1.30); GLOMERULAR FILTRATION RATE 31.2 (>39)
[2023-08-10] VITALS (12 sets, daily range): BP systolic 90–164; BP diastolic 52–81; TEMP 97.3–98; O2SAT 92–100
[2023-08-10 05:57] LABS: BASO % 0.2 % (0.0-1.0); EOS # 0.3 10^3/uL (0.0-0.5); EOS % 2.1 % (0.0-3.0); HEMATOCRIT 21.9 % (36.0-47.0); LYMPH # 1.4 10^3/uL (1.5-5.0); LYMPH % 11.6 % (24.0-44.0); MEAN CORPUSCULAR HEMOGLOBIN 30.9 pg (27.0-33.0); MEAN CORPUSCULAR HGB CONC 32.4 g/dl (32.0-36.5); MEAN CORPUSCULAR VOLUME 95.2 fl (80.0-96.0); MONO % 8.7 % (2.0-8.0); NEUTROPHILS % 67.5 % (36.0-66.0); PLATELET COUNT, AUTOMATED 412 10^3/uL (150-450); WHITE BLOOD COUNT 11.8 10^3/uL (4.0-10.0)
[2023-08-10 06:09] LABS: HEMOGLOBIN 7.1 g/dl (12.0-15.5)
[2023-08-10 06:23] LABS: C REACTIVE PROTEIN QUANTITATIV 16.9 MG/DL (<1.0)
[2023-08-10 06:26] LABS: ALBUMIN 1.3 G/DL (3.2-5.2); BILIRUBIN,TOTAL 0.6 MG/DL (0.3-1.2); CALCIUM LEVEL 7.6 MG/DL (8.3-10.6); CREATININE FOR GFR 1.6 MG/DL (0.55-1.30); GLOMERULAR FILTRATION RATE 33.6 (>39); POTASSIUM SERUM 5.3 MMOL/L (3.5-5.1); TOTAL PROTEIN 4.8 G/DL (5.7-8.2)
[2023-08-10] MEDS: MORPHINE 10 MG/ML 1ML VIAL IV ONE (09:15)
[2023-08-10] MEDS: PATIROMER SORBITEX CALCIUM 8.4 GM POWDER PACKET (VELTASSA) PO ONE (10:37)
[2023-08-10] MEDS: HYDROMORPHONE HCL 0.5 MG/ 0.5 ML SYRINGE IV PRN (14:42)
[2023-08-10] MEDS ORDERED: fentaNYL 250 MCG/5 ML INJECTION As Ordered ONE (15:04)
[2023-08-10] MEDS ORDERED: propofoL 200 MG/20 ML VIAL As Ordered ONE (15:04)
[2023-08-10] MEDS ORDERED: ONDANSETRON 4MG 2ML VIAL As Ordered ONE (15:04)
[2023-08-10] MEDS ORDERED: ROCURONIUM BROMIDE 50MG/5ML VIAL As Ordered ONE (15:04)
[2023-08-10] MEDS ORDERED: LIDOCAINE 2% 100MG/5ML SDV (FOR ANES.) As Ordered ONE (15:04)
[2023-08-10] MEDS ORDERED: MIDAZOLAM INJ 2MG/2ML VIAL As Ordered ONE (15:05)
[2023-08-10] MEDS ORDERED: dexmedeTOMIDine (4MCG/ML)200MCG/50ML BTL (PRECEDEX) As Ordered ONE (15:10)
[2023-08-10] MEDS ORDERED: SEVOFLURANE INHAL SOLN 250 ML BTL As Ordered ONE (15:17)
[2023-08-10] MEDS ORDERED: CALCIUM CHLORIDE 10% 1 GM/10 ML SYR As Ordered ONE (16:18)
[2023-08-10] MEDS ORDERED: ETOMIDATE INJ 20MG/10ML VIAL As Ordered ONE (16:19)
[2023-08-10] MEDS: ZOSYN 3.375GM VIAL As Ordered ONE (16:55)
[2023-08-10] MEDS ORDERED: PHENYLephrine 500MCG 5ML (100MCG/ML) SYRINGE As Ordered ONE (17:56)
[2023-08-10] MEDS ORDERED: HYDROmorphone HCL 2MG/ML 1ML VIAL As Ordered ONE (17:57)
[2023-08-10] MEDS ORDERED: ePHEDrine SULFATE 25 MG/5 ML(5MG/ML) SYRINGE As Ordered ONE (18:12)
[2023-08-10] MEDS ORDERED: ACETAMINOPHEN 1000MG 100ML IV BAG As Ordered ONE (18:14)
[2023-08-10] MEDS ORDERED: SUGAMMADEX SODIUM 500 MG/5 ML VIAL (BRIDION) As Ordered ONE (18:14)
[2023-08-10] MEDS ORDERED: LIDOCAINE 5% OINT 30GM TUBE As Ordered ONE (18:39)
[2023-08-10] MEDS ORDERED: LR 1,000 ML IV SCH (19:35)
[2023-08-10] MEDS ORDERED: ONDANSETRON 4MG 2ML VIAL IV PRN (19:35)
[2023-08-10] MEDS ORDERED: oxyCODONE 5MG TAB PO PRN (19:35)
[2023-08-10] MEDS ORDERED: HYDROMORPHONE HCL 0.5 MG/ 0.5 ML SYRINGE IV PRN (19:35)
[2023-08-10] MEDS: fentaNYL 100 MCG/2 ML INJECTION IV PRN (20:09)
[2023-08-10 21:59] LABS: HEMOGLOBIN 11.2 g/dl (12.0-15.5); MEAN CORPUSCULAR HEMOGLOBIN 30.8 pg (27.0-33.0); MEAN CORPUSCULAR HGB CONC 32.9 g/dl (32.0-36.5); MEAN CORPUSCULAR VOLUME 93.4 fl (80.0-96.0); PLATELET COUNT, AUTOMATED 483 10^3/uL (150-450); RED BLOOD COUNT 3.64 10^6/uL (4.00-5.40); WHITE BLOOD COUNT 17.2 10^3/uL (4.0-10.0)
[2023-08-10 22:31] LABS: ALBUMIN 1.4 G/DL (3.2-5.2); CALCIUM LEVEL 8.6 MG/DL (8.3-10.6); CREATININE FOR GFR 1.06 MG/DL (0.55-1.30); GLOMERULAR FILTRATION RATE 54.1 (>39); PHOSPHORUS LEVEL 5.6 MG/DL (2.4-5.1)
[2023-08-11] VITALS (11 sets, daily range): BP systolic 111–155; BP diastolic 59–82; TEMP 97.4–98.3; O2SAT 93–100
[2023-08-11] MEDS ORDERED: SODIUM CHLORIDE 0.9% INJ 10 ML SYR IV PRN (06:00)
[2023-08-11 06:25] LABS: BASO % 0.2 % (0.0-1.0); HEMATOCRIT 32.6 % (36.0-47.0); HEMOGLOBIN 10.7 g/dl (12.0-15.5); LYMPH # 0.8 10^3/uL (1.5-5.0); LYMPH % 4.5 % (24.0-44.0); MEAN CORPUSCULAR HEMOGLOBIN 30.7 pg (27.0-33.0); MEAN CORPUSCULAR HGB CONC 32.8 g/dl (32.0-36.5); MEAN CORPUSCULAR VOLUME 93.4 fl (80.0-96.0); MONO # 0.7 10^3/uL (0.0-0.8); MONO % 4.2 % (2.0-8.0); NEUTROPHILS # 15.1 10^3/uL (1.5-8.5); NEUTROPHILS % 87.1 % (36.0-66.0); PLATELET COUNT, AUTOMATED 485 10^3/uL (150-450); RED BLOOD COUNT 3.49 10^6/uL (4.00-5.40); WHITE BLOOD COUNT 17.3 10^3/uL (4.0-10.0)
[2023-08-11 06:53] LABS: ALBUMIN 1.4 G/DL (3.2-5.2); ALKALINE PHOSPHATASE 115 U/L (46-116); ALT/SGPT 13 U/L (7.0-40); AST/SGOT 19 U/L (<34); BILIRUBIN,TOTAL 1.6 MG/DL (0.3-1.2); BLOOD UREA NITROGEN 35 MG/DL (9-23); CALCIUM LEVEL 8.5 MG/DL (8.3-10.6); CARBON DIOXIDE LEVEL 21 MMOL/L (20-31); CHLORIDE LEVEL 104 MMOL/L (98-107); CREATININE FOR GFR 0.96 MG/DL (0.55-1.30); GLOMERULAR FILTRATION RATE > 60.0 (>39); GLUCOSE, FASTING 150 MG/DL (74-106); MAGNESIUM LEVEL 2.4 MG/DL (1.8-2.4); POTASSIUM SERUM 5.4 MMOL/L (3.5-5.1); SODIUM LEVEL 133 MMOL/L (136-145)
[2023-08-11] MEDS: FUROSEMIDE 20MG/2ML VIAL IV ONE (08:37)
[2023-08-11] MEDS: PATIROMER SORBITEX CALCIUM 8.4 GM POWDER PACKET (VELTASSA) PO ONE (10:52)
[2023-08-11 11:32] LABS: BLOOD UREA NITROGEN 29 MG/DL (9-23); CALCIUM LEVEL 8.3 MG/DL (8.3-10.6); CARBON DIOXIDE LEVEL 21 MMOL/L (20-31); CHLORIDE LEVEL 105 MMOL/L (98-107); CREATININE FOR GFR 0.96 MG/DL (0.55-1.30); GLOMERULAR FILTRATION RATE > 60.0 (>39); GLUCOSE, FASTING 155 MG/DL (74-106); POTASSIUM SERUM 4.8 MMOL/L (3.5-5.1); SODIUM LEVEL 134 MMOL/L (136-145)
[2023-08-11] MEDS: HEPARIN SOD (PORCINE) 5000UNITS/ML 1ML VIAL/SYRINGE SQ SCH (18:18)
[2023-08-11] MEDS: LATANOPROST 0.005% OPHTH SOLN 2.5 ML OU SCH (20:21)
[2023-08-11] MEDS: PANTOPRAZOLE 40MG VIAL IV SCH (20:21)
[2023-08-11] MEDS: LACTULOSE 20GM/30ML SYRUP UDC PO SCH (20:21)
[2023-08-11] MEDS: SODIUM CHLORIDE 0.9% INJ 10 ML SYR IV SCH (22:33)
[2023-08-12] VITALS (22 sets, daily range): BP systolic 123–167; BP diastolic 62–86; TEMP 97.8–100.7; O2SAT 90–100
[2023-08-12] MEDS: ACETAMINOPHEN TAB 650MG DOSE (2X325MG) PO ONE (03:56)
[2023-08-12] MEDS: ACETAMINOPHEN *IV* 1,000 MG in IV 1 EA IV ONE (06:07)
[2023-08-12 07:25] LABS: BASO % 0.1 % (0.0-1.0); EOS # 0.1 10^3/uL (0.0-0.5); EOS % 0.7 % (0.0-3.0); HEMATOCRIT 27.5 % (36.0-47.0); HEMOGLOBIN 8.9 g/dl (12.0-15.5); MEAN CORPUSCULAR HEMOGLOBIN 30.3 pg (27.0-33.0); MEAN CORPUSCULAR HGB CONC 32.4 g/dl (32.0-36.5); MEAN CORPUSCULAR VOLUME 93.5 fl (80.0-96.0); MONO # 0.7 10^3/uL (0.0-0.8); MONO % 5.3 % (2.0-8.0); NEUTROPHILS # 10.1 10^3/uL (1.5-8.5); NEUTROPHILS % 82.9 % (36.0-66.0); PLATELET COUNT, AUTOMATED 435 10^3/uL (150-450); RED BLOOD COUNT 2.94 10^6/uL (4.00-5.40); WHITE BLOOD COUNT 12.2 10^3/uL (4.0-10.0)
[2023-08-12 07:49] LABS: ALBUMIN 1.3 G/DL (3.2-5.2); ALKALINE PHOSPHATASE 113 U/L (46-116); ALT/SGPT 15 U/L (7.0-40); AST/SGOT 20 U/L (<34); BLOOD UREA NITROGEN 24 MG/DL (9-23); CALCIUM LEVEL 7.8 MG/DL (8.3-10.6); CARBON DIOXIDE LEVEL 23 MMOL/L (20-31); CHLORIDE LEVEL 105 MMOL/L (98-107); CREATININE FOR GFR 0.71 MG/DL (0.55-1.30); GLOMERULAR FILTRATION RATE > 60.0 (>39); GLUCOSE, FASTING 95 MG/DL (74-106); PHOSPHORUS LEVEL 3.2 MG/DL (2.4-5.1); POTASSIUM SERUM 4.1 MMOL/L (3.5-5.1); SODIUM LEVEL 134 MMOL/L (136-145); TOTAL PROTEIN 4.6 G/DL (5.7-8.2)
[2023-08-12] MEDS: HYDROMORPHONE HCL 0.5 MG/ 0.5 ML SYRINGE IV PRN (14:10)
[2023-08-12 15:30] LABS: BLOOD UREA NITROGEN 24 MG/DL (9-23); CALCIUM LEVEL 7.7 MG/DL (8.3-10.6); CARBON DIOXIDE LEVEL 24 MMOL/L (20-31); CHLORIDE LEVEL 107 MMOL/L (98-107); CREATININE FOR GFR 0.65 MG/DL (0.55-1.30); GLOMERULAR FILTRATION RATE > 60.0 (>39); GLUCOSE, FASTING 103 MG/DL (74-106); POTASSIUM SERUM 4.2 MMOL/L (3.5-5.1); SODIUM LEVEL 136 MMOL/L (136-145)
[2023-08-12] MEDS: VITAMIN D 1,000 INTERNATIONAL UNITS TABLET PO SCH (20:30)
[2023-08-12] MEDS: CO-ENZYME Q10 50 MG CAP PO SCH (20:30)
[2023-08-12] MEDS: SIMVASTATIN 40 MG TAB PO SCH (20:30)
[2023-08-12] MEDS: ASPIRIN 81MG ENTERIC TABLET PO SCH (20:30)
[2023-08-13] VITALS (19 sets, daily range): BP systolic 122–152; BP diastolic 60–86; TEMP 97.2–98.1; O2SAT 94–99
[2023-08-13 07:26] LABS: BASO % 0.1 % (0.0-1.0); EOS # 0.2 10^3/uL (0.0-0.5); EOS % 1.9 % (0.0-3.0); HEMATOCRIT 27.6 % (36.0-47.0); HEMOGLOBIN 8.9 g/dl (12.0-15.5); LYMPH # 1.3 10^3/uL (1.5-5.0); LYMPH % 11.6 % (24.0-44.0); MEAN CORPUSCULAR HEMOGLOBIN 30.7 pg (27.0-33.0); MEAN CORPUSCULAR HGB CONC 32.2 g/dl (32.0-36.5); MEAN CORPUSCULAR VOLUME 95.2 fl (80.0-96.0); MONO # 0.5 10^3/uL (0.0-0.8); MONO % 4.3 % (2.0-8.0); NEUTROPHILS # 8.7 10^3/uL (1.5-8.5); NEUTROPHILS % 79.7 % (36.0-66.0); PLATELET COUNT, AUTOMATED 456 10^3/uL (150-450); WHITE BLOOD COUNT 10.9 10^3/uL (4.0-10.0)
[2023-08-13 07:59] LABS: ALBUMIN 1.3 G/DL (3.2-5.2); ALKALINE PHOSPHATASE 132 U/L (46-116); ALT/SGPT 22 U/L (7.0-40); AST/SGOT 25 U/L (<34); BILIRUBIN,TOTAL 0.8 MG/DL (0.3-1.2); BLOOD UREA NITROGEN 19 MG/DL (9-23); CARBON DIOXIDE LEVEL 26 MMOL/L (20-31); CHLORIDE LEVEL 107 MMOL/L (98-107); CREATININE FOR GFR 0.61 MG/DL (0.55-1.30); GLOMERULAR FILTRATION RATE > 60.0 (>39); GLUCOSE, FASTING 93 MG/DL (74-106); POTASSIUM SERUM 4.2 MMOL/L (3.5-5.1); SODIUM LEVEL 136 MMOL/L (136-145); TOTAL PROTEIN 4.8 G/DL (5.7-8.2)
[2023-08-13] MEDS: HYDROMORPHONE HCL 0.5 MG/ 0.5 ML SYRINGE IV PRN (10:28)
[2023-08-14] VITALS (18 sets, daily range): BP systolic 127–168; BP diastolic 60–81; TEMP 96.1–98.5; O2SAT 92–99
[2023-08-14 06:23] LABS: BASO % 0.2 % (0.0-1.0); EOS # 0.2 10^3/uL (0.0-0.5); EOS % 1.6 % (0.0-3.0); HEMATOCRIT 28.1 % (36.0-47.0); LYMPH # 1.2 10^3/uL (1.5-5.0); LYMPH % 12.2 % (24.0-44.0); MEAN CORPUSCULAR HEMOGLOBIN 30.4 pg (27.0-33.0); MEAN CORPUSCULAR VOLUME 94.9 fl (80.0-96.0); MONO # 0.4 10^3/uL (0.0-0.8); NEUTROPHILS # 7.9 10^3/uL (1.5-8.5); NEUTROPHILS % 80.6 % (36.0-66.0); PLATELET COUNT, AUTOMATED 526 10^3/uL (150-450); RED BLOOD COUNT 2.96 10^6/uL (4.00-5.40); WHITE BLOOD COUNT 9.8 10^3/uL (4.0-10.0)
[2023-08-14 06:53] LABS: ALBUMIN 1.3 G/DL (3.2-5.2); ALKALINE PHOSPHATASE 129 U/L (46-116); ALT/SGPT 25 U/L (7.0-40); AST/SGOT 22 U/L (<34); BILIRUBIN,TOTAL 0.8 MG/DL (0.3-1.2); BLOOD UREA NITROGEN 15 MG/DL (9-23); CALCIUM LEVEL 7.9 MG/DL (8.3-10.6); CARBON DIOXIDE LEVEL 24 MMOL/L (20-31); CHLORIDE LEVEL 104 MMOL/L (98-107); CREATININE FOR GFR 0.57 MG/DL (0.55-1.30); GLOMERULAR FILTRATION RATE > 60.0 (>39); GLUCOSE, FASTING 121 MG/DL (74-106); MAGNESIUM LEVEL 1.8 MG/DL (1.8-2.4); POTASSIUM SERUM 3.9 MMOL/L (3.5-5.1); SODIUM LEVEL 135 MMOL/L (136-145); TOTAL PROTEIN 4.8 G/DL (5.7-8.2)
[2023-08-14] MEDS: PERCOCET 5MG/325MG TAB PO PRN (13:24)
[2023-08-14] MEDS: metroNIDAZOLE (FLAGYL) 500MG TABLET PO SCH (15:10)
[2023-08-14] MEDS: DULoxetine 20MG CAP (CYMBALTA) PO SCH (16:57)
[2023-08-14] MEDS: APIXABAN 5 MG TAB (ELIQUIS) PO SCH (16:58)
[2023-08-14] MEDS ORDERED: AUGMENTIN 875 MG TAB PO SCH (21:00)
[2023-08-14] MEDS: AMOXICILLIN 500 MG CAP PO SCH (22:59)
[2023-08-14] MEDS: LACTULOSE 20GM/30ML SYRUP UDC PO SCH (23:00)
[2023-08-15 00:06] VITALS: BP 131/68; TEMP 97.7; O2SAT 95
[2023-08-15 04:03] VITALS: BP 138/81; TEMP 97.8; O2SAT 96
[2023-08-15 08:11] LABS: BASO % 0.2 % (0.0-1.0); EOS # 0.1 10^3/uL (0.0-0.5); EOS % 1.3 % (0.0-3.0); HEMOGLOBIN 8.5 g/dl (12.0-15.5); LYMPH % 11.7 % (24.0-44.0); MEAN CORPUSCULAR HEMOGLOBIN 30.4 pg (27.0-33.0); MEAN CORPUSCULAR HGB CONC 31.5 g/dl (32.0-36.5); MEAN CORPUSCULAR VOLUME 96.4 fl (80.0-96.0); MONO # 0.4 10^3/uL (0.0-0.8); MONO % 4.8 % (2.0-8.0); NEUTROPHILS # 7.1 10^3/uL (1.5-8.5); NEUTROPHILS % 80.7 % (36.0-66.0); PLATELET COUNT, AUTOMATED 554 10^3/uL (150-450); WHITE BLOOD COUNT 8.8 10^3/uL (4.0-10.0)
[2023-08-15 08:42] LABS: ALBUMIN 1.4 G/DL (3.2-5.2); ALKALINE PHOSPHATASE 106 U/L (46-116); ALT/SGPT 19 U/L (7.0-40); AST/SGOT 15 U/L (<34); BILIRUBIN,TOTAL 0.6 MG/DL (0.3-1.2); BLOOD UREA NITROGEN 14 MG/DL (9-23); CALCIUM LEVEL 7.7 MG/DL (8.3-10.6); CARBON DIOXIDE LEVEL 27 MMOL/L (20-31); CHLORIDE LEVEL 104 MMOL/L (98-107); CREATININE FOR GFR 0.56 MG/DL (0.55-1.30); GLOMERULAR FILTRATION RATE > 60.0 (>39); GLUCOSE, FASTING 100 MG/DL (74-106); MAGNESIUM LEVEL 1.8 MG/DL (1.8-2.4); SODIUM LEVEL 134 MMOL/L (136-145); TOTAL PROTEIN 4.6 G/DL (5.7-8.2)
[2023-08-15 09:20] VITALS: BP 156/86; TEMP 96.7; O2SAT 97
[2023-08-15] MEDS: PANTOPRAZOLE 40MG TAB (PROTONIX) PO SCH (10:30)
[2023-08-15] MEDS: MOM 30ML SUSPENSION UDC PO ONE (10:31)
[2023-08-15] MEDS: PERCOCET 5MG/325MG TAB PO ONE (12:54)
[2023-08-15 13:15] VITALS: BP 157/91; TEMP 98.4; O2SAT 95
[2023-08-15] MEDS: PERCOCET 5MG/325MG TAB PO PRN (18:54)
[2023-08-15] MEDS: ACETAMINOPHEN TAB 650MG DOSE (2X325MG) PO PRN (21:12)
[2023-08-15 21:32] VITALS: BP 145/85; TEMP 97.5; O2SAT 97
[2023-08-16] MEDS: ONDANSETRON 4MG TAB PO PRN (02:00)
[2023-08-16 05:31] LABS: APPEARANCE, URINE HAZY (CLEAR); BACTERIA, URINE AUTO NEGATIVE (NEGATIVE); BILIRUBIN, URINE AUTO NEGATIVE (NEGATIVE); BLOOD, URINE BLOOD NEGATIVE (NEGATIVE); COLOR, URINE AMBER (YELLOW); GLUCOSE, URINE (UA) AUTO NEGATIVE (NEGATIVE); KETONE, URINE AUTO NEGATIVE (NEGATIVE); LEUKOCYTE ESTERASE, URINE AUTO TRACE (NEGATIVE); MUCUS, URINE SMALL (NEGATIVE); NITRITE, URINE AUTO NEGATIVE (NEGATIVE); PROTEIN, URINE AUTO NEGATIVE (NEGATIVE); RBC, URINE AUTO 0 /HPF (0-3); SPECIFIC GRAVITY URINE AUTO 1.024 (1.002-1.035); SQUAMOUS EPITHELIAL CELL UR AU 0 /HPF (0-6); UROBILINOGEN, URINE AUTO 0.2 mg/dL (0.0-2.0); WBC, URINE AUTO 5 /HPF (0-3)
[2023-08-16 06:00] VITALS: BP 139/82; TEMP 97.5; O2SAT 97
[2023-08-16 06:00] LABS: BASO % 0.1 % (0.0-1.0); EOS # 0.1 10^3/uL (0.0-0.5); EOS % 1.2 % (0.0-3.0); MEAN CORPUSCULAR HEMOGLOBIN 30.7 pg (27.0-33.0); MEAN CORPUSCULAR HGB CONC 32.1 g/dl (32.0-36.5); MEAN CORPUSCULAR VOLUME 95.6 fl (80.0-96.0); MONO # 0.5 10^3/uL (0.0-0.8); MONO % 6.3 % (2.0-8.0); NEUTROPHILS # 5.9 10^3/uL (1.5-8.5); NEUTROPHILS % 78.6 % (36.0-66.0); PLATELET COUNT, AUTOMATED 571 10^3/uL (150-450); RED BLOOD COUNT 2.93 10^6/uL (4.00-5.40); WHITE BLOOD COUNT 7.5 10^3/uL (4.0-10.0)
[2023-08-16 06:29] LABS: ALBUMIN 1.6 G/DL (3.2-5.2); ALKALINE PHOSPHATASE 101 U/L (46-116); ALT/SGPT 16 U/L (7.0-40); AST/SGOT 14 U/L (<34); BILIRUBIN,TOTAL 0.5 MG/DL (0.3-1.2); BLOOD UREA NITROGEN 10 MG/DL (9-23); CALCIUM LEVEL 7.8 MG/DL (8.3-10.6); CARBON DIOXIDE LEVEL 28 MMOL/L (20-31); CHLORIDE LEVEL 103 MMOL/L (98-107); CREATININE FOR GFR 0.49 MG/DL (0.55-1.30); GLOMERULAR FILTRATION RATE > 60.0 (>39); GLUCOSE, FASTING 96 MG/DL (74-106); MAGNESIUM LEVEL 1.8 MG/DL (1.8-2.4); POTASSIUM SERUM 3.6 MMOL/L (3.5-5.1); SODIUM LEVEL 134 MMOL/L (136-145); TOTAL PROTEIN 4.8 G/DL (5.7-8.2)
[2023-08-16] MEDS: MYCOLOG CREAM 15GM (NYSTATIN/TRIAMCINOLONE) TOP SCH (09:48)
[2023-08-16 14:30] VITALS: BP 146/87; TEMP 97.9; O2SAT 96
[2023-08-16 20:00] VITALS: BP 119/72; TEMP 97.9; O2SAT 95
[2023-08-17 06:00] VITALS: BP 149/87; TEMP 97.3; O2SAT 95
[2023-08-17 06:38] LABS: BASO % 0.1 % (0.0-1.0); EOS # 0.1 10^3/uL (0.0-0.5); EOS % 1.5 % (0.0-3.0); HEMATOCRIT 27.9 % (36.0-47.0); HEMOGLOBIN 8.8 g/dl (12.0-15.5); LYMPH % 14.7 % (24.0-44.0); MEAN CORPUSCULAR HEMOGLOBIN 30.3 pg (27.0-33.0); MEAN CORPUSCULAR HGB CONC 31.5 g/dl (32.0-36.5); MEAN CORPUSCULAR VOLUME 96.2 fl (80.0-96.0); MONO # 0.4 10^3/uL (0.0-0.8); MONO % 5.5 % (2.0-8.0); NEUTROPHILS # 5.3 10^3/uL (1.5-8.5); NEUTROPHILS % 77.5 % (36.0-66.0); PLATELET COUNT, AUTOMATED 591 10^3/uL (150-450); WHITE BLOOD COUNT 6.8 10^3/uL (4.0-10.0)
[2023-08-17 07:03] LABS: ALBUMIN 1.5 G/DL (3.2-5.2); ALKALINE PHOSPHATASE 91 U/L (46-116); ALT/SGPT 16 U/L (7.0-40); AST/SGOT 16 U/L (<34); BILIRUBIN,TOTAL 0.5 MG/DL (0.3-1.2); BLOOD UREA NITROGEN 10 MG/DL (9-23); CALCIUM LEVEL 7.8 MG/DL (8.3-10.6); CARBON DIOXIDE LEVEL 28 MMOL/L (20-31); CHLORIDE LEVEL 104 MMOL/L (98-107); CREATININE FOR GFR 0.53 MG/DL (0.55-1.30); GLOMERULAR FILTRATION RATE > 60.0 (>39); GLUCOSE, FASTING 90 MG/DL (74-106); MAGNESIUM LEVEL 1.7 MG/DL (1.8-2.4); POTASSIUM SERUM 3.7 MMOL/L (3.5-5.1); SODIUM LEVEL 136 MMOL/L (136-145); TOTAL PROTEIN 4.6 G/DL (5.7-8.2)
[2023-08-17] MEDS ORDERED: MAG SULF 1GM/100ML (MAG RUN) 1 GM in IV 1 EA IV ONE (08:00)
[2023-08-17] MEDS: MAGNESIUM OXIDE 400MG TAB (MAG-OX) PO ONE (09:43)
[2023-08-17] MEDS: SENNA 8.6 MG TAB (SENOKOT) PO SCH (12:13)
[2023-08-17 14:00] VITALS: BP 128/75; TEMP 97.9; O2SAT 94
[2023-08-17 22:06] VITALS: BP 137/78; TEMP 97.5; O2SAT 96
[2023-08-18 06:16] VITALS: BP 159/81; TEMP 97.5; O2SAT 96
[2023-08-18 07:39] LABS: BASO % 0.3 % (0.0-1.0); EOS # 0.1 10^3/uL (0.0-0.5); HEMATOCRIT 28.3 % (36.0-47.0); HEMOGLOBIN 9.2 g/dl (12.0-15.5); LYMPH # 1.3 10^3/uL (1.5-5.0); LYMPH % 17.8 % (24.0-44.0); MEAN CORPUSCULAR HEMOGLOBIN 31.5 pg (27.0-33.0); MEAN CORPUSCULAR HGB CONC 32.5 g/dl (32.0-36.5); MEAN CORPUSCULAR VOLUME 96.9 fl (80.0-96.0); MONO # 0.5 10^3/uL (0.0-0.8); MONO % 6.7 % (2.0-8.0); NEUTROPHILS # 5.1 10^3/uL (1.5-8.5); NEUTROPHILS % 72.6 % (36.0-66.0); PLATELET COUNT, AUTOMATED 613 10^3/uL (150-450); RED BLOOD COUNT 2.92 10^6/uL (4.00-5.40)
[2023-08-18 07:40] LABS: ALBUMIN 1.6 G/DL (3.2-5.2); ALKALINE PHOSPHATASE 91 U/L (46-116); ALT/SGPT 18 U/L (7.0-40); AST/SGOT 23 U/L (<34); BILIRUBIN,TOTAL 0.5 MG/DL (0.3-1.2); BLOOD UREA NITROGEN 10 MG/DL (9-23); CALCIUM LEVEL 8.1 MG/DL (8.3-10.6); CARBON DIOXIDE LEVEL 27 MMOL/L (20-31); CHLORIDE LEVEL 105 MMOL/L (98-107); CREATININE FOR GFR 0.54 MG/DL (0.55-1.30); GLOMERULAR FILTRATION RATE > 60.0 (>39); GLUCOSE, FASTING 91 MG/DL (74-106); MAGNESIUM LEVEL 1.6 MG/DL (1.8-2.4); POTASSIUM SERUM 3.9 MMOL/L (3.5-5.1); SODIUM LEVEL 136 MMOL/L (136-145); TOTAL PROTEIN 4.8 G/DL (5.7-8.2)
[2023-08-18 08:02] VITALS: BP 130/81; TEMP 96.4
[2023-08-18] MEDS: LACTULOSE 20GM/30ML SYRUP UDC PO SCH (09:12)
[2023-08-18] MEDS: ASPIRIN 81MG ENTERIC TABLET PO SCH (09:54)
[2023-08-18] MEDS: MAGNESIUM OXIDE 400MG TAB (MAG-OX) PO ONE (09:54)
[2023-08-18] MEDS: APIXABAN 5 MG TAB (ELIQUIS) PO SCH (09:54)
[2023-08-18] MEDS: NS 1,000 ML IV ONE (15:33)
[2023-08-18] MEDS: MIRTAZAPINE 15 MG TAB PO SCH (20:09)
[2023-08-18 21:26] VITALS: BP 139/82; TEMP 98.2; O2SAT 96
[2023-08-19 06:00] VITALS: BP 123/71; TEMP 98.4; O2SAT 96
[2023-08-19 06:43] LABS: BASO % 0.6 % (0.0-1.0); EOS # 0.1 10^3/uL (0.0-0.5); EOS % 1.8 % (0.0-3.0); HEMATOCRIT 26.6 % (36.0-47.0); HEMOGLOBIN 8.6 g/dl (12.0-15.5); LYMPH # 1.2 10^3/uL (1.5-5.0); LYMPH % 16.7 % (24.0-44.0); MEAN CORPUSCULAR HGB CONC 32.3 g/dl (32.0-36.5); MONO # 0.5 10^3/uL (0.0-0.8); MONO % 7.5 % (2.0-8.0); NEUTROPHILS # 5.2 10^3/uL (1.5-8.5); PLATELET COUNT, AUTOMATED 538 10^3/uL (150-450); RED BLOOD COUNT 2.77 10^6/uL (4.00-5.40); WHITE BLOOD COUNT 7.1 10^3/uL (4.0-10.0)
[2023-08-19 07:15] LABS: ALBUMIN 1.5 G/DL (3.2-5.2); ALKALINE PHOSPHATASE 82 U/L (46-116); ALT/SGPT 14 U/L (7.0-40); AST/SGOT 19 U/L (<34); BILIRUBIN,TOTAL 0.4 MG/DL (0.3-1.2); BLOOD UREA NITROGEN 8 MG/DL (9-23); CALCIUM LEVEL 7.8 MG/DL (8.3-10.6); CARBON DIOXIDE LEVEL 27 MMOL/L (20-31); CHLORIDE LEVEL 108 MMOL/L (98-107); CREATININE FOR GFR 0.56 MG/DL (0.55-1.30); GLOMERULAR FILTRATION RATE > 60.0 (>39); GLUCOSE, FASTING 90 MG/DL (74-106); MAGNESIUM LEVEL 1.7 MG/DL (1.8-2.4); POTASSIUM SERUM 3.7 MMOL/L (3.5-5.1); SODIUM LEVEL 140 MMOL/L (136-145); TOTAL PROTEIN 4.4 G/DL (5.7-8.2)
[2023-08-19] MEDS: MAGNESIUM OXIDE 400MG TAB (MAG-OX) PO ONE (09:05)
[2023-08-19 15:23] VITALS: BP 136/75; TEMP 97.9; O2SAT 96
[2023-08-19 21:17] VITALS: BP 131/73; TEMP 98.2; O2SAT 93
[2023-08-20 06:00] VITALS: BP 142/83; TEMP 98.1; O2SAT 96
[2023-08-20 06:50] LABS: BASO % 0.6 % (0.0-1.0); EOS # 0.1 10^3/uL (0.0-0.5); EOS % 1.9 % (0.0-3.0); HEMATOCRIT 28.4 % (36.0-47.0); LYMPH # 1.3 10^3/uL (1.5-5.0); LYMPH % 20.8 % (24.0-44.0); MEAN CORPUSCULAR HEMOGLOBIN 30.6 pg (27.0-33.0); MEAN CORPUSCULAR HGB CONC 31.7 g/dl (32.0-36.5); MEAN CORPUSCULAR VOLUME 96.6 fl (80.0-96.0); MONO # 0.5 10^3/uL (0.0-0.8); MONO % 7.9 % (2.0-8.0); NEUTROPHILS # 4.3 10^3/uL (1.5-8.5); NEUTROPHILS % 68.2 % (36.0-66.0); PLATELET COUNT, AUTOMATED 583 10^3/uL (150-450); RED BLOOD COUNT 2.94 10^6/uL (4.00-5.40); WHITE BLOOD COUNT 6.4 10^3/uL (4.0-10.0)
[2023-08-20 07:13] LABS: ALBUMIN 1.6 G/DL (3.2-5.2); ALKALINE PHOSPHATASE 86 U/L (46-116); ALT/SGPT 14 U/L (7.0-40); AST/SGOT 19 U/L (<34); BILIRUBIN,TOTAL 0.4 MG/DL (0.3-1.2); BLOOD UREA NITROGEN 8 MG/DL (9-23); CALCIUM LEVEL 8.3 MG/DL (8.3-10.6); CARBON DIOXIDE LEVEL 27 MMOL/L (20-31); CHLORIDE LEVEL 109 MMOL/L (98-107); CREATININE FOR GFR 0.55 MG/DL (0.55-1.30); GLOMERULAR FILTRATION RATE > 60.0 (>39); GLUCOSE, FASTING 88 MG/DL (74-106); MAGNESIUM LEVEL 1.7 MG/DL (1.8-2.4); SODIUM LEVEL 141 MMOL/L (136-145); TOTAL PROTEIN 4.7 G/DL (5.7-8.2)
[2023-08-20] MEDS: MORPHINE 2 MG/ML 1ML VIAL IV PRN (07:29)
[2023-08-20] MEDS: NS 1,000 ML IV ONE (10:56)
[2023-08-20 14:59] VITALS: BP 132/76; TEMP 98.2; O2SAT 96
[2023-08-20] MEDS: NS 500 ML IV ONE (17:58)
[2023-08-21 05:11] VITALS: BP 165/83; TEMP 97.9; O2SAT 98
[2023-08-21 06:24] LABS: BASO % 0.8 % (0.0-1.0); EOS # 0.2 10^3/uL (0.0-0.5); EOS % 3.2 % (0.0-3.0); HEMATOCRIT 27.6 % (36.0-47.0); HEMOGLOBIN 8.8 g/dl (12.0-15.5); LYMPH % 19.3 % (24.0-44.0); MEAN CORPUSCULAR HEMOGLOBIN 31.1 pg (27.0-33.0); MEAN CORPUSCULAR HGB CONC 31.9 g/dl (32.0-36.5); MEAN CORPUSCULAR VOLUME 97.5 fl (80.0-96.0); MONO # 0.5 10^3/uL (0.0-0.8); MONO % 8.8 % (2.0-8.0); NEUTROPHILS # 3.6 10^3/uL (1.5-8.5); NEUTROPHILS % 67.3 % (36.0-66.0); PLATELET COUNT, AUTOMATED 508 10^3/uL (150-450); RED BLOOD COUNT 2.83 10^6/uL (4.00-5.40); WHITE BLOOD COUNT 5.3 10^3/uL (4.0-10.0)
[2023-08-21 06:47] LABS: ALBUMIN 1.5 G/DL (3.2-5.2); ALKALINE PHOSPHATASE 78 U/L (46-116); ALT/SGPT 11 U/L (7.0-40); AST/SGOT 12 U/L (<34); BILIRUBIN,TOTAL 0.4 MG/DL (0.3-1.2); BLOOD UREA NITROGEN 9 MG/DL (9-23); CALCIUM LEVEL 7.8 MG/DL (8.3-10.6); CARBON DIOXIDE LEVEL 27 MMOL/L (20-31); CHLORIDE LEVEL 111 MMOL/L (98-107); CREATININE FOR GFR 0.55 MG/DL (0.55-1.30); GLOMERULAR FILTRATION RATE > 60.0 (>39); GLUCOSE, FASTING 95 MG/DL (74-106); MAGNESIUM LEVEL 1.6 MG/DL (1.8-2.4); POTASSIUM SERUM 3.5 MMOL/L (3.5-5.1); SODIUM LEVEL 142 MMOL/L (136-145); TOTAL PROTEIN 4.5 G/DL (5.7-8.2)
[2023-08-21] MEDS: MAG SULF 1GM/100ML (MAG RUN) 1 GM in IV 1 EA IV SCH (08:38)
[2023-08-21 14:30] VITALS: BP 114/71; TEMP 98.1; O2SAT 97
[2023-08-21 20:21] VITALS: BP 165/87; TEMP 98.6; O2SAT 97
[2023-08-22 05:21] VITALS: BP 137/82; TEMP 98.2; O2SAT 96
[2023-08-22 06:07] LABS: BASO % 0.4 % (0.0-1.0); EOS # 0.2 10^3/uL (0.0-0.5); EOS % 3.9 % (0.0-3.0); HEMATOCRIT 27.9 % (36.0-47.0); HEMOGLOBIN 8.6 g/dl (12.0-15.5); LYMPH % 18.8 % (24.0-44.0); MEAN CORPUSCULAR HEMOGLOBIN 30.6 pg (27.0-33.0); MEAN CORPUSCULAR HGB CONC 30.8 g/dl (32.0-36.5); MEAN CORPUSCULAR VOLUME 99.3 fl (80.0-96.0); MONO # 0.5 10^3/uL (0.0-0.8); MONO % 9.4 % (2.0-8.0); NEUTROPHILS # 3.7 10^3/uL (1.5-8.5); NEUTROPHILS % 67.1 % (36.0-66.0); PLATELET COUNT, AUTOMATED 508 10^3/uL (150-450); RED BLOOD COUNT 2.81 10^6/uL (4.00-5.40); WHITE BLOOD COUNT 5.4 10^3/uL (4.0-10.0)
[2023-08-22 06:26] LABS: ALBUMIN 1.6 G/DL (3.2-5.2); ALKALINE PHOSPHATASE 83 U/L (46-116); ALT/SGPT < 9 U/L (7.0-40); AST/SGOT 11 U/L (<34); BILIRUBIN,TOTAL 0.4 MG/DL (0.3-1.2); BLOOD UREA NITROGEN 8 MG/DL (9-23); CALCIUM LEVEL 8.1 MG/DL (8.3-10.6); CARBON DIOXIDE LEVEL 27 MMOL/L (20-31); CHLORIDE LEVEL 109 MMOL/L (98-107); CREATININE FOR GFR 0.55 MG/DL (0.55-1.30); GLOMERULAR FILTRATION RATE > 60.0 (>39); GLUCOSE, FASTING 99 MG/DL (74-106); MAGNESIUM LEVEL 1.7 MG/DL (1.8-2.4); POTASSIUM SERUM 3.7 MMOL/L (3.5-5.1); SODIUM LEVEL 142 MMOL/L (136-145); TOTAL PROTEIN 4.7 G/DL (5.7-8.2)
[2023-08-22] MEDS: APIXABAN 5 MG TAB (ELIQUIS) PO SCH (09:00)
[2023-08-22] MEDS: MAG SULF 1GM/100ML (MAG RUN) 1 GM in IV 1 EA IV SCH ×2 (09:48→13:08)
[2023-08-22] MEDS: METAMUCIL (PSYLLIUM) PACKET PO SCH (09:51)
[2023-08-22] MEDS ORDERED: PERCOCET PO (12:37)
[2023-08-22] MEDS ORDERED: MIRT-10 PO (12:37)
[2023-08-22] MEDS ORDERED: VITAD1000T PO (12:37)
[2023-08-22] MEDS ORDERED: COLA100C5 PO (12:37)
[2023-08-22] MEDS ORDERED: DULO1CAP4 PO (12:37)
[2023-08-22] MEDS ORDERED: SENO8.6T5 PO (12:37)
[2023-08-22] MEDS ORDERED: META1POW PO (12:37)
[2023-08-22] MEDS ORDERED: ELIQ5TAB PO (12:37)
[2023-08-22 13:20] VITALS: O2SAT 96
[2023-08-22 14:00] VITALS: BP 129/78; TEMP 97.9; O2SAT 98
[2023-08-22] MEDS ORDERED: ASPI-164 PO (17:06)
[2023-08-22 22:00] VITALS: BP 142/89; TEMP 97.9; O2SAT 96
[2023-08-23 05:35] VITALS: BP 146/88; TEMP 97.9; O2SAT 97
== END 2023-08-23 10:00 | DRG 329 ==
LOC: M ED 08:30 → M ED INP 14:40 → ENRESERV 16:41 → M PCU 17:35 → M MS5PR 08-15 13:00
PROVIDERS: ADMIT Internal Medicine; ATTEND Internal Medicine
PROC: 0W9G30Z Drainage of Peritoneal Cavity with Drainage Device, Percutaneous Approach (ICD-10-PCS; 2023-08-08)
PROC: 0D1N0Z4 Bypass Sigmoid Colon to Cutaneous, Open Approach (ICD-10-PCS; 2023-08-10)
PROC: 30233N1 Transfusion of Nonautologous Red Blood Cells into Peripheral Vein, Percutaneous Approach (ICD-10-PCS; 2023-08-10)
PROC: 0DTN0ZZ Resection of Sigmoid Colon, Open Approach (ICD-10-PCS; principal; 2023-08-10 15:00)
PROC: 02HV43Z Insertion of Infusion Device into Superior Vena Cava, Percutaneous Endoscopic Approach (ICD-10-PCS; 2023-08-11)
DX: K57.20 Diverticulitis of large intestine with perforation and abscess without bleeding (principal); K65.1 Peritoneal abscess; E87.1 Hypo-osmolality and hyponatremia; N17.9 Acute kidney failure, unspecified; J98.11 Atelectasis; D62 Acute posthemorrhagic anemia; I82.621 Acute embolism and thrombosis of deep veins of right upper extremity; R45.851 Suicidal ideations; Z66 Do not resuscitate; I10 Essential (primary) hypertension; Z93.3 Colostomy status; K21.9 Gastro-esophageal reflux disease without esophagitis; E87.5 Hyperkalemia; E78.5 Hyperlipidemia, unspecified; M48.00 Spinal stenosis, site unspecified; F06.31 Mood disorder due to known physiological condition with depressive features; B96.20 Unspecified Escherichia coli [E. coli] as the cause of diseases classified elsewhere; M79.2 Neuralgia and neuritis, unspecified; M47.9 Spondylosis, unspecified; H40.9 Unspecified glaucoma; Z96.653 Presence of artificial knee joint, bilateral; Z96.642 Presence of left artificial hip joint; Z79.82 Long term (current) use of aspirin; Z79.899 Other long term (current) drug therapy; Z20.822 Contact with and (suspected) exposure to COVID-19

== ENCOUNTER → 2023-08-24 | Outpatient (REF) | payer MEDICARE ==
[~2023-08-24] MED LIST changes: +ASPI-164 PO; +AZO1CAP PO; +AZO1CAP2 PO; +CELE100C PO; +CINN500C15 PO; +COEN100T PO; +COLA100C5 PO; +COLL1TAB PO; +COLLCAP PO; +D-MA500C2 PO; +DAILTAB22 PO; +DULO1CAP4 PO; +ELIQ5TAB PO; +GLUC1TAB58 PO; +MAGN400C2 PO; +META1POW PO; +MIRT-10 PO; +OCUV1CAP4 PO; +PERCOCET PO; +POTA540T PO; +RA K500C PO; +RA T500C2 PO; +SENN1TAB96 PO; +SENO8.6T5 PO; +THERTAB21 PO; +VITA-148 PO; +VITA100065 PO; +VITAD1000T PO
[2023-08-24 09:59] LABS: HEMATOCRIT 29.1 % (36.0-47.0); HEMOGLOBIN 9.2 g/dl (12.0-15.5); MEAN CORPUSCULAR HEMOGLOBIN 31.1 pg (27.0-33.0); MEAN CORPUSCULAR HGB CONC 31.6 g/dl (32.0-36.5); MEAN CORPUSCULAR VOLUME 98.3 fl (80.0-96.0); PLATELET COUNT, AUTOMATED 461 10^3/uL (150-450); RED BLOOD COUNT 2.96 10^6/uL (4.00-5.40); WHITE BLOOD COUNT 5.1 10^3/uL (4.0-10.0)
[2023-08-24 10:37] LABS: BLOOD UREA NITROGEN 9 MG/DL (9-23); CALCIUM LEVEL 8.2 MG/DL (8.3-10.6); CARBON DIOXIDE LEVEL 27 MMOL/L (20-31); CHLORIDE LEVEL 106 MMOL/L (98-107); GLOMERULAR FILTRATION RATE > 60.0 (>39); GLUCOSE, FASTING 122 MG/DL (74-106); POTASSIUM SERUM 3.5 MMOL/L (3.5-5.1); SODIUM LEVEL 140 MMOL/L (136-145)
== END ==
LOC: SKLAB4 08:54
PROVIDERS: ATTEND Nurse Practitioner Family
DX: E78.5 Hyperlipidemia, unspecified (principal); I10 Essential (primary) hypertension

== ENCOUNTER → 2023-09-06 | Outpatient (REF) | payer MEDICARE ==
[2023-09-06 08:14] LABS: HEMATOCRIT 28.9 % (36.0-47.0); HEMOGLOBIN 9.1 g/dl (12.0-15.5); MEAN CORPUSCULAR HEMOGLOBIN 30.2 pg (27.0-33.0); MEAN CORPUSCULAR HGB CONC 31.5 g/dl (32.0-36.5); PLATELET COUNT, AUTOMATED 394 10^3/uL (150-450); RED BLOOD COUNT 3.01 10^6/uL (4.00-5.40); WHITE BLOOD COUNT 5.5 10^3/uL (4.0-10.0)
[2023-09-06 08:34] LABS: BLOOD UREA NITROGEN 9 MG/DL (9-23); CALCIUM LEVEL 7.9 MG/DL (8.3-10.6); CARBON DIOXIDE LEVEL 31 MMOL/L (20-31); CHLORIDE LEVEL 105 MMOL/L (98-107); CREATININE FOR GFR 0.57 MG/DL (0.55-1.30); GLOMERULAR FILTRATION RATE > 60.0 (>39); GLUCOSE, FASTING 92 MG/DL (74-106); POTASSIUM SERUM 3.7 MMOL/L (3.5-5.1); SODIUM LEVEL 142 MMOL/L (136-145)
== END ==
LOC: SKLAB4 09:57
PROVIDERS: ATTEND Nurse Practitioner Family
DX: E78.5 Hyperlipidemia, unspecified (principal); D64.9 Anemia, unspecified

== ENCOUNTER 2023-09-16 14:20 | Emergency (ER) | payer MEDICARE ==
[~2023-09-16] VITALS: Ht 147.3 cm; Wt 77.7 kg
[2023-09-16 15:56] LABS: BASO % 0.8 % (0.0-1.0); EOS # 0.2 10^3/uL (0.0-0.5); EOS % 3.8 % (0.0-3.0); HEMATOCRIT 32.7 % (36.0-47.0); HEMOGLOBIN 10.1 g/dl (12.0-15.5); LYMPH # 1.7 10^3/uL (1.5-5.0); LYMPH % 35.2 % (24.0-44.0); MEAN CORPUSCULAR HEMOGLOBIN 29.5 pg (27.0-33.0); MEAN CORPUSCULAR HGB CONC 30.9 g/dl (32.0-36.5); MEAN CORPUSCULAR VOLUME 95.6 fl (80.0-96.0); MONO # 0.3 10^3/uL (0.0-0.8); MONO % 6.4 % (2.0-8.0); NEUTROPHILS # 2.5 10^3/uL (1.5-8.5); NEUTROPHILS % 53.6 % (36.0-66.0); PLATELET COUNT, AUTOMATED 325 10^3/uL (150-450); RED BLOOD COUNT 3.42 10^6/uL (4.00-5.40); WHITE BLOOD COUNT 4.7 10^3/uL (4.0-10.0)
[2023-09-16] MEDS: NS 500 ML IV ONE (16:06)
[2023-09-16 16:10] LABS: INR 1.23; LIPASE 178 U/L (12-53); PARTIAL THROMBOPLASTIN TIME 29.5 SECONDS (24.8-34.2); PROTHROMBIN TIME 15.1 SECONDS (12.5-14.5)
[2023-09-16 16:13] LABS: ALBUMIN 2.8 G/DL (3.2-5.2); ALKALINE PHOSPHATASE 69 U/L (46-116); ALT/SGPT < 9 U/L (7.0-40); AST/SGOT 18 U/L (<34); BILIRUBIN,DIRECT 0.2 MG/DL (<0.4); BILIRUBIN,TOTAL 0.6 MG/DL (0.3-1.2); BLOOD UREA NITROGEN 23 MG/DL (9-23); CALCIUM LEVEL 8.9 MG/DL (8.3-10.6); CARBON DIOXIDE LEVEL 27 MMOL/L (20-31); CHLORIDE LEVEL 107 MMOL/L (98-107); GLOMERULAR FILTRATION RATE > 60.0 (>39); GLUCOSE, FASTING 88 MG/DL (74-106); POTASSIUM SERUM 3.2 MMOL/L (3.5-5.1); SODIUM LEVEL 141 MMOL/L (136-145); TOTAL PROTEIN 6.2 G/DL (5.7-8.2)
[2023-09-16] MEDS ORDERED: ISOVUE-370 76% 100ML VIAL As Ordered ONE (16:14)
[2023-09-16] MEDS ORDERED: AMOX875T2 PO (17:43)
[2023-09-16] MEDS ORDERED: ONDA4TAB6 PO (17:43)
[2023-09-16] MEDS: AUGMENTIN 875 MG TAB PO ONE (18:04)
[2023-09-16] MEDS: ONDANSETRON 4MG ORAL DISINTEGRATING TAB PO ONE (18:04)
[2023-09-16 18:23] VITALS: BP 181/83; TEMP 97.7; O2SAT 97
== END 2023-09-16 18:20 | disposition home or self-care (01) ==
LOC: M ED 14:20
DX: K57.32 Diverticulitis of large intestine without perforation or abscess without bleeding (principal); I10 Essential (primary) hypertension; Z87.442 Personal history of urinary calculi; E66.9 Obesity, unspecified; Z79.899 Other long term (current) drug therapy
CPT/HCPCS: 74177; 80048; 80076; 83690; 85025; 85610; 85730; 86850; 86900; 86901; 96360; 96361; 99284; Q9967

== ENCOUNTER 2023-10-04 13:06 | Emergency (ER) | payer MEDICARE ==
[~2023-10-04] VITALS: Ht 147.3 cm; Wt 83.3 kg
[~2023-10-04 13:06] MED LIST changes: +ONDA4TAB6 PO
[2023-10-04 13:54] LABS: BASO % 0.9 % (0.0-1.0); EOS # 0.3 10^3/uL (0.0-0.5); HEMOGLOBIN 10.2 g/dl (12.0-15.5); LYMPH # 1.4 10^3/uL (1.5-5.0); LYMPH % 30.5 % (24.0-44.0); MEAN CORPUSCULAR HGB CONC 30.9 g/dl (32.0-36.5); MEAN CORPUSCULAR VOLUME 97.1 fl (80.0-96.0); MONO # 0.3 10^3/uL (0.0-0.8); MONO % 7.2 % (2.0-8.0); NEUTROPHILS # 2.5 10^3/uL (1.5-8.5); NEUTROPHILS % 54.2 % (36.0-66.0); PLATELET COUNT, AUTOMATED 301 10^3/uL (150-450); WHITE BLOOD COUNT 4.7 10^3/uL (4.0-10.0)
[2023-10-04 14:05] LABS: INR 0.97; PROTHROMBIN TIME 12.6 SECONDS (12.5-14.5)
[2023-10-04 14:17] LABS: LIPASE 85 U/L (12-53)
[2023-10-04 14:19] LABS: ALBUMIN 2.8 G/DL (3.2-5.2); ALKALINE PHOSPHATASE 67 U/L (46-116); ALT/SGPT < 9 U/L (7.0-40); AST/SGOT 19 U/L (<34); BILIRUBIN,DIRECT 0.1 MG/DL (<0.4); BILIRUBIN,TOTAL 0.5 MG/DL (0.3-1.2); BLOOD UREA NITROGEN 16 MG/DL (9-23); CALCIUM LEVEL 9.1 MG/DL (8.3-10.6); CARBON DIOXIDE LEVEL 28 MMOL/L (20-31); CHLORIDE LEVEL 107 MMOL/L (98-107); CK-MB VALUE MASS < 1.0 NG/ML (<3.6); CREATININE FOR GFR 0.63 MG/DL (0.55-1.30); GLOMERULAR FILTRATION RATE > 60.0 (>39); GLUCOSE, FASTING 91 MG/DL (74-106); POTASSIUM SERUM 3.4 MMOL/L (3.5-5.1); SODIUM LEVEL 140 MMOL/L (136-145); TOTAL PROTEIN 6.1 G/DL (5.7-8.2)
[2023-10-04 14:22] LABS: CPK CREATINE PHOSPHOKINASE 50 U/L (34-145)
[2023-10-04] MEDS: LOSARTAN 50MG TABLET PO ONE (19:20)
[2023-10-04] MEDS: POTASSIUM CHLORIDE 10MEQ SR TABLET PO ONE ×3 (19:21→21:27)
[2023-10-04] MEDS: FUROSEMIDE 20MG/2ML VIAL IV ONE (19:22)
[2023-10-04 19:45] LABS: CK-MB VALUE MASS < 1.0 NG/ML (<3.6)
[2023-10-04 19:48] LABS: CPK CREATINE PHOSPHOKINASE 46 U/L (34-145); MB/CK RELATIVE INDEX 2.17 (< OR =4)
[2023-10-04] MEDS: FUROSEMIDE 40MG/4ML VIAL IV ONE (20:40)
[2023-10-04 20:41] VITALS: BP 188/94
[2023-10-04] MEDS: amLODIPine 5 MG TAB PO ONE (20:41)
[2023-10-04] MEDS ORDERED: LOSA100T46 PO (22:09)
[2023-10-04] MEDS ORDERED: CHLO125TA PO (22:09)
[2023-10-04 22:17] VITALS: BP 178/90; TEMP 98; O2SAT 96
[2023-10-04] MEDS ORDERED: amLODIPine 5 MG TAB PO ONE (23:00)
== END 2023-10-04 22:30 | disposition home or self-care (01) ==
LOC: M ED 13:06
DX: I10 Essential (primary) hypertension (principal); E78.5 Hyperlipidemia, unspecified; K21.9 Gastro-esophageal reflux disease without esophagitis; K57.92 Diverticulitis of intestine, part unspecified, without perforation or abscess without bleeding; E55.9 Vitamin D deficiency, unspecified; K44.9 Diaphragmatic hernia without obstruction or gangrene; Z87.442 Personal history of urinary calculi; Z79.01 Long term (current) use of anticoagulants; Z79.811 Long term (current) use of aromatase inhibitors; Z79.82 Long term (current) use of aspirin; Z79.899 Other long term (current) drug therapy
CPT/HCPCS: 71046; 80048; 80076; 81001; 82550; 82553; 83690; 83880; 84484; 85025; 85610; 87088; 87186; 93005; 96374; 96376; 99285; J1940

== ENCOUNTER → 2023-10-12 | Outpatient (REF) | payer MEDICARE ==
[~2023-10-12] MED LIST changes: +CHLO125TA PO; +LOSA100T46 PO
== END ==
LOC: M LAB REF 17:20
PROVIDERS: ATTEND Internal Medicine
DX: I11.9 Hypertensive heart disease without heart failure (principal)

== ENCOUNTER 2023-12-26 07:22 | Day surgery (SDC) | payer MEDICARE ==
[~2023-12-26] VITALS: Ht 149.9 cm; Wt 79.7 kg
[~2023-12-26 07:22] MED LIST changes: +ACET-861 PO; +AMLO1TAB24 PO; +FERR325T3 PO; +LR 1,000 ML IV ONE; +ONDA-282 PO; -ONDA4TAB6 PO
[2023-12-26] MEDS: NS 1,000 ML IV ONE (07:45)
[2023-12-26] MEDS ORDERED: propofoL 200 MG/20 ML VIAL As Ordered ONE (08:06)
[2023-12-26] MEDS ORDERED: LIDOCAINE 2% 100MG/5ML SDV (FOR ANES.) As Ordered ONE (08:06)
[2023-12-26 09:15] VITALS: TEMP 97.2
[2023-12-26 09:31] VITALS: BP 151/70; O2SAT 95
== END 2023-12-26 09:39 | disposition home or self-care (01) ==
LOC: M OPP 07:22
PROVIDERS: ATTEND Surgery
DX: Z01.818 Encounter for other preprocedural examination (principal); Z93.3 Colostomy status; K64.4 Residual hemorrhoidal skin tags; K57.30 Diverticulosis of large intestine without perforation or abscess without bleeding; K57.32 Diverticulitis of large intestine without perforation or abscess without bleeding; Z79.1 Long term (current) use of non-steroidal anti-inflammatories (NSAID); Z79.02 Long term (current) use of antithrombotics/antiplatelets; Z79.899 Other long term (current) drug therapy

== ENCOUNTER → 2024-01-01 | Outpatient (CLI) | payer MEDICARE ==
[~2024-01-01] MED LIST changes: -LR 1,000 ML IV ONE; +PROHANCE 279.3MG/ML 15ML VIAL ONE; +PROHANCE 279.3MG/ML 5ML VIAL ONE
== END ==
LOC: M PLAIMG 12:13
PROVIDERS: ATTEND Internal Medicine
DX: I67.1 Cerebral aneurysm, nonruptured (principal)
CPT/HCPCS: 70549; A9576

== ENCOUNTER 2024-02-27 05:55 | Inpatient (IN) | payer MEDICARE ==
[2024-02-27] VITALS (7 sets, daily range): BP systolic 133–139; BP diastolic 75–84; TEMP 97.2–98.1; O2SAT 94–96
[~2024-02-27] VITALS: Ht 149.9 cm; Wt 82.1 kg
[2024-02-27] MEDS: LR 1,000 ML IV SCH ×3 (03:00→16:51)
[~2024-02-27 05:55] MED LIST changes: -PROHANCE 279.3MG/ML 15ML VIAL ONE; -PROHANCE 279.3MG/ML 5ML VIAL ONE
[2024-02-27] MEDS: ALVIMOPAN 12 MG CAPSULE (ENTEREG) PO ONE (06:45)
[2024-02-27] MEDS ORDERED: ROCURONIUM BROMIDE 50MG/5ML VIAL As Ordered ONE (06:45)
[2024-02-27] MEDS ORDERED: ACETAMINOPHEN 1000MG 100ML IV BAG As Ordered ONE (06:45)
[2024-02-27] MEDS ORDERED: fentaNYL 100 MCG/2 ML INJECTION As Ordered ONE (06:45)
[2024-02-27] MEDS ORDERED: propofoL 200 MG/20 ML VIAL As Ordered ONE (06:45)
[2024-02-27] MEDS ORDERED: LIDOCAINE 2% 100MG/5ML SDV (FOR ANES.) As Ordered ONE (06:45)
[2024-02-27] MEDS: CelecoXIB 400 MG CAP PO ONE (06:45)
[2024-02-27] MEDS ORDERED: SENN-188 PO (07:26)
[2024-02-27] MEDS ORDERED: CHLO25TA PO (07:26)
[2024-02-27] MEDS ORDERED: META28.32 PO (07:26)
[2024-02-27] MEDS ORDERED: DULO1CAP4 PO (07:33)
[2024-02-27] MEDS ORDERED: DOCU100C16 PO (07:33)
[2024-02-27] MEDS ORDERED: MIRT-88 PO (07:33)
[2024-02-27] MEDS ORDERED: HOME MED LIST COMPLETE! XX SCH (07:35)
[2024-02-27] MEDS: ceFAZolin SOD 2 GM in IV 1 EA IV ONE (07:45)
[2024-02-27] MEDS: HEPARIN SOD (PORCINE) 5000UNITS/ML 1ML VIAL/SYRINGE SQ ONE (07:55)
[2024-02-27] MEDS ORDERED: INDOCYANINE GREEN 25MG VIAL (IC-GREEN) As Ordered ONE (07:59)
[2024-02-27] MEDS: metroNIDAZOLE 500 MG in IV 1 EA IV ONE (08:00)
[2024-02-27] MEDS ORDERED: ONDANSETRON 4MG 2ML VIAL As Ordered ONE (08:17)
[2024-02-27] MEDS ORDERED: SUGAMMADEX SODIUM 500 MG/5 ML VIAL (BRIDION) As Ordered ONE (08:17)
[2024-02-27] MEDS ORDERED: GLYCOPYRROLATE INJ 0.2 MG/ML 2 ML VIAL As Ordered ONE (08:25)
[2024-02-27] MEDS: LIDOCAINE 1% SDV 30ML VIAL As Ordered ONE (08:35)
[2024-02-27] MEDS ORDERED: ePHEDrine SULFATE 25 MG/5 ML(5MG/ML) SYRINGE As Ordered ONE (09:16)
[2024-02-27] MEDS ORDERED: HYDROmorphone HCL 2MG/ML 1ML VIAL As Ordered ONE (11:04)
[2024-02-27] MEDS: ceFAZolin 2 GM/D5W 50 ML IV BAG As Ordered ONE (11:52)
[2024-02-27] MEDS: GLUCAGON INJ 1MG VIAL As Ordered ONE (12:52)
[2024-02-27] MEDS ORDERED: ONDANSETRON 4MG 2ML VIAL IV PRN (14:05)
[2024-02-27] MEDS ORDERED: fentaNYL 100 MCG/2 ML INJECTION IV PRN (14:05)
[2024-02-27] MEDS ORDERED: MORPHINE 4 MG/ML 1ML VIAL IV PRN (14:15)
[2024-02-27] MEDS ORDERED: ACETAMINOPHEN TAB 650MG DOSE (2X325MG) PO PRN (14:15)
[2024-02-27] MEDS ORDERED: oxyCODONE 5MG TAB PO PRN (14:50)
[2024-02-27] MEDS: KETOROLAC 30 MG/ML 1ML VIAL IV SCH (14:59)
[2024-02-27] MEDS: HYDROMORPHONE HCL 0.5 MG/ 0.5 ML SYRINGE IV PRN (15:00)
[2024-02-27] MEDS: METOCLOPRAMIDE INJ 10MG/2ML VIAL IV PRN (15:16)
[2024-02-27] MEDS: PERCOCET 5MG/325MG TAB PO PRN (18:51)
[2024-02-27] MEDS: LOSARTAN 50MG TABLET PO SCH (20:23)
[2024-02-27] MEDS: amLODIPine 5 MG TAB PO SCH (20:23)
[2024-02-27] MEDS: ONDANSETRON 4MG 2ML VIAL IV PRN (20:23)
[2024-02-27] MEDS: VITAMIN D 1,000 INTERNATIONAL UNITS TABLET PO SCH (20:23)
[2024-02-27] MEDS: SIMVASTATIN 40 MG TAB PO SCH (20:23)
[2024-02-27] MEDS: LATANOPROST 0.005% OPHTH SOLN 2.5 ML OU SCH (21:00)
[2024-02-28] VITALS (8 sets, daily range): BP systolic 97–122; BP diastolic 48–76; TEMP 97.3–99.1; O2SAT 86–96
[2024-02-28 06:19] LABS: BASO % 0.3 % (0.0-1.0); HEMATOCRIT 32.8 % (36.0-47.0); HEMOGLOBIN 10.3 g/dl (12.0-15.5); LYMPH % 12.7 % (24.0-44.0); MEAN CORPUSCULAR HEMOGLOBIN 30.9 pg (27.0-33.0); MEAN CORPUSCULAR HGB CONC 31.4 g/dl (32.0-36.5); MEAN CORPUSCULAR VOLUME 98.5 fl (80.0-96.0); MONO # 0.9 10^3/uL (0.0-0.8); MONO % 11.4 % (2.0-8.0); NEUTROPHILS # 5.8 10^3/uL (1.5-8.5); NEUTROPHILS % 75.5 % (36.0-66.0); PLATELET COUNT, AUTOMATED 218 10^3/uL (150-450); RED BLOOD COUNT 3.33 10^6/uL (4.00-5.40); WHITE BLOOD COUNT 7.7 10^3/uL (4.0-10.0)
[2024-02-28 06:43] LABS: BLOOD UREA NITROGEN 18 MG/DL (9-23); CALCIUM LEVEL 8.4 MG/DL (8.3-10.6); CARBON DIOXIDE LEVEL 26 MMOL/L (20-31); CHLORIDE LEVEL 107 MMOL/L (98-107); CREATININE FOR GFR 0.96 MG/DL (0.55-1.30); GLOMERULAR FILTRATION RATE > 60.0 (>39); GLUCOSE, FASTING 94 MG/DL (74-106); POTASSIUM SERUM 4.1 MMOL/L (3.5-5.1); SODIUM LEVEL 138 MMOL/L (136-145)
[2024-02-28] MEDS: PERCOCET 5MG/325MG TAB PO PRN (08:14)
[2024-02-28] MEDS: CALCIUM/VITAMIN D 500 MG TAB PO SCH (08:15)
[2024-02-28] MEDS: DULoxetine 20MG CAP (CYMBALTA) PO SCH (08:15)
[2024-02-28] MEDS: ENOXAPARIN 40MG/0.4ML SYRINGE (J1650 PER 10MG) SC SCH (08:15)
[2024-02-28] MEDS: PANTOPRAZOLE 40MG VIAL IV SCH (08:15)
[2024-02-28] MEDS: ALVIMOPAN 12 MG CAPSULE (ENTEREG) PO SCH (10:40)
[2024-02-28] MEDS: CHLORTHALIDONE 12.5MG PER 1/2 TABLET PO SCH (10:40)
[2024-02-29 04:01] VITALS: BP 130/75; TEMP 98.2; O2SAT 98
[2024-02-29 06:24] LABS: BASO % 0.2 % (0.0-1.0); EOS % 0.3 % (0.0-3.0); HEMATOCRIT 32.8 % (36.0-47.0); HEMOGLOBIN 10.2 g/dl (12.0-15.5); LYMPH # 0.7 10^3/uL (1.5-5.0); LYMPH % 7.9 % (24.0-44.0); MEAN CORPUSCULAR HGB CONC 31.1 g/dl (32.0-36.5); MEAN CORPUSCULAR VOLUME 99.7 fl (80.0-96.0); MONO # 0.9 10^3/uL (0.0-0.8); MONO % 9.5 % (2.0-8.0); NEUTROPHILS # 7.3 10^3/uL (1.5-8.5); NEUTROPHILS % 81.5 % (36.0-66.0); PLATELET COUNT, AUTOMATED 188 10^3/uL (150-450); RED BLOOD COUNT 3.29 10^6/uL (4.00-5.40); WHITE BLOOD COUNT 8.9 10^3/uL (4.0-10.0)
[2024-02-29 06:46] LABS: BLOOD UREA NITROGEN 12 MG/DL (9-23); CALCIUM LEVEL 8.4 MG/DL (8.3-10.6); CARBON DIOXIDE LEVEL 29 MMOL/L (20-31); CHLORIDE LEVEL 104 MMOL/L (98-107); CREATININE FOR GFR 0.75 MG/DL (0.55-1.30); GLOMERULAR FILTRATION RATE > 60.0 (>39); GLUCOSE, FASTING 105 MG/DL (74-106); POTASSIUM SERUM 4.1 MMOL/L (3.5-5.1); SODIUM LEVEL 135 MMOL/L (136-145)
[2024-02-29 12:00] VITALS: BP 123/71; TEMP 97.9; O2SAT 92
[2024-02-29 19:36] VITALS: BP 124/70; TEMP 98.1; O2SAT 94
[2024-03-01 03:42] VITALS: BP 130/72; TEMP 98.2; O2SAT 93
[2024-03-01 05:38] LABS: BASO % 0.1 % (0.0-1.0); EOS # 0.2 10^3/uL (0.0-0.5); EOS % 1.8 % (0.0-3.0); LYMPH # 0.8 10^3/uL (1.5-5.0); LYMPH % 9.4 % (24.0-44.0); MEAN CORPUSCULAR HEMOGLOBIN 30.7 pg (27.0-33.0); MEAN CORPUSCULAR HGB CONC 31.3 g/dl (32.0-36.5); MEAN CORPUSCULAR VOLUME 98.2 fl (80.0-96.0); MONO # 0.7 10^3/uL (0.0-0.8); MONO % 8.1 % (2.0-8.0); NEUTROPHILS # 6.7 10^3/uL (1.5-8.5); PLATELET COUNT, AUTOMATED 183 10^3/uL (150-450); RED BLOOD COUNT 3.26 10^6/uL (4.00-5.40); WHITE BLOOD COUNT 8.3 10^3/uL (4.0-10.0)
[2024-03-01 06:05] LABS: BLOOD UREA NITROGEN 10 MG/DL (9-23); CALCIUM LEVEL 8.4 MG/DL (8.3-10.6); CARBON DIOXIDE LEVEL 28 MMOL/L (20-31); CHLORIDE LEVEL 103 MMOL/L (98-107); CREATININE FOR GFR 0.68 MG/DL (0.55-1.30); GLOMERULAR FILTRATION RATE > 60.0 (>39); GLUCOSE, FASTING 103 MG/DL (74-106); POTASSIUM SERUM 3.8 MMOL/L (3.5-5.1); SODIUM LEVEL 135 MMOL/L (136-145)
[2024-03-01 12:00] VITALS: BP 157/93; TEMP 98.2; O2SAT 92
[2024-03-01 20:00] VITALS: BP 114/74; TEMP 98.1; O2SAT 92
[2024-03-01 21:55] VITALS: BP 130/90
[2024-03-02 04:00] VITALS: BP 126/80; TEMP 98; O2SAT 93
[2024-03-02 07:17] LABS: BASO % 0.3 % (0.0-1.0); EOS # 0.2 10^3/uL (0.0-0.5); EOS % 3.1 % (0.0-3.0); HEMATOCRIT 31.9 % (36.0-47.0); HEMOGLOBIN 10.1 g/dl (12.0-15.5); LYMPH # 1.1 10^3/uL (1.5-5.0); LYMPH % 15.8 % (24.0-44.0); MEAN CORPUSCULAR HGB CONC 31.7 g/dl (32.0-36.5); MEAN CORPUSCULAR VOLUME 97.9 fl (80.0-96.0); MONO # 0.7 10^3/uL (0.0-0.8); MONO % 10.4 % (2.0-8.0); NEUTROPHILS # 4.7 10^3/uL (1.5-8.5); NEUTROPHILS % 70.1 % (36.0-66.0); PLATELET COUNT, AUTOMATED 240 10^3/uL (150-450); RED BLOOD COUNT 3.26 10^6/uL (4.00-5.40); WHITE BLOOD COUNT 6.7 10^3/uL (4.0-10.0)
[2024-03-02 07:45] LABS: BLOOD UREA NITROGEN 9 MG/DL (9-23); CALCIUM LEVEL 8.6 MG/DL (8.3-10.6); CARBON DIOXIDE LEVEL 32 MMOL/L (20-31); CHLORIDE LEVEL 102 MMOL/L (98-107); CREATININE FOR GFR 0.69 MG/DL (0.55-1.30); GLOMERULAR FILTRATION RATE > 60.0 (>39); GLUCOSE, FASTING 98 MG/DL (74-106); POTASSIUM SERUM 3.7 MMOL/L (3.5-5.1); SODIUM LEVEL 137 MMOL/L (136-145)
[2024-03-02 12:00] VITALS: BP 129/88; TEMP 98.4; O2SAT 89
== END 2024-03-02 12:35 | disposition home or self-care (01) | DRG 331 ==
LOC: M OR 05:55 → M MSPAV 16:00
PROVIDERS: ADMIT Surgery; ATTEND Surgery
PROC: 0DNW4ZZ Release Peritoneum, Percutaneous Endoscopic Approach (ICD-10-PCS; 2024-02-27)
PROC: 0WQF4ZZ Repair Abdominal Wall, Percutaneous Endoscopic Approach (ICD-10-PCS; 2024-02-27)
PROC: 8E0W4CZ Robotic Assisted Procedure of Trunk Region, Percutaneous Endoscopic Approach (ICD-10-PCS; 2024-02-27)
PROC: 0DBE4ZZ Excision of Large Intestine, Percutaneous Endoscopic Approach (ICD-10-PCS; principal; 2024-02-27 07:30)
DX: Z43.3 Encounter for attention to colostomy (principal); K62.4 Stenosis of anus and rectum; K66.0 Peritoneal adhesions (postprocedural) (postinfection); K44.9 Diaphragmatic hernia without obstruction or gangrene

== ENCOUNTER → 2024-04-19 | Outpatient (CLI) | payer MEDICARE ==
[~2024-04-19] MED LIST changes: +CHLO25TA PO; +DOCU100C16 PO; +META28.32 PO; +MIRT-88 PO; +SENN-188 PO
== END ==
LOC: M WHC 10:49
PROVIDERS: ATTEND Internal Medicine
DX: Z12.31 Encounter for screening mammogram for malignant neoplasm of breast (principal); R92.313 Mammographic fatty tissue density, bilateral breasts

== ENCOUNTER → 2024-08-28 | Outpatient (REF) | payer MEDICARE ==
[~2024-08-28] MED LIST changes: +META-10 PO; -META1TAB22 PO; -POTA540T PO; +POTA540T5 PO
[2024-08-28 17:37] LABS: PERCENT SATURATION 25.7 % (13.2-45.0)
== END ==
LOC: M LAB REF 16:44
PROVIDERS: ATTEND Internal Medicine
DX: D50.9 Iron deficiency anemia, unspecified (principal)

== ENCOUNTER → 2025-04-24 | Outpatient (CLI) | payer MEDICARE ==
[~2025-04-24] MED LIST changes: -RA T500C2 PO; +SENN-225 PO; -SENO8.6T5 PO; +TURM500C10 PO
== END ==
LOC: M WHC 13:41
PROVIDERS: ATTEND Internal Medicine
DX: Z12.31 Encounter for screening mammogram for malignant neoplasm of breast (principal); M85.851 Other specified disorders of bone density and structure, right thigh; R92.313 Mammographic fatty tissue density, bilateral breasts

== ENCOUNTER 2025-05-04 14:06 | Inpatient (IN) | payer BC, MEDICARE ==
[~2025-05-04] VITALS: Ht 149.9 cm; Wt 84.4 kg
[2025-05-04] MEDS ORDERED: ONDANSETRON 4MG/2ML VIAL IV ONE (14:25)
[2025-05-04] MEDS: NS 500 ML IV ONE (14:41)
[2025-05-04 14:50] LABS: PLATELET COUNT, AUTOMATED 362 10^3/uL (150-450)
[2025-05-04] MEDS: NS (Normal Saline) 0.9% 2,010 ML in IV 1 EA IV ONE (14:50)
[2025-05-04 15:10] LABS: ALT/SGPT 26.0 U/L (7.0-40); AST/SGOT 30.0 U/L (<34)
[2025-05-04 15:12] LABS: INR 1.0
[2025-05-04 15:21] LABS: ATYPICAL LYMPH 4 % (0-5); LYMPHOCYTES 17 % (16-44); METAMYELOCYTES 3 % (0-0); MONOCYTES 6 % (0-5); MYELOCYTES 4 % (0-0); NEUTROPHILS 53 % (28-66); PLATELET ESTIMATE NORMAL (NORMAL)
[2025-05-04 15:23] LABS: PLATELET CLUMPS SMALL AMT
[2025-05-04] MEDS: PIPERACILLIN/TAZOBACTAM SOD 4.5 GM in DEXTROSE 5% (D5W) ADV/MINI-BAG 50 ML IV ONE (15:45)
[2025-05-04] MEDS: NS (Normal Saline) 0.9% 1,000 ML IV SCH (19:27)
[2025-05-04] MEDS ORDERED: KCL 20MEQ IN 100ML SWI (KRUN) 20 MEQ in IV 1 EA IV SCH (19:55)
[2025-05-04] MEDS ORDERED: BRIMONIDINE 0.15% OPHTH SOLN 5 ML OU SCH (21:00)
[2025-05-04] MEDS: KCL 10MEQ/100ML SWI (KRUN) 10 MEQ in IV 1 EA IV SCH (21:22)
[2025-05-04] MEDS: PIPERACILLIN/TAZOBACTAM SOD 4.5 GM in DEXTROSE 5% (D5W) ADV/MINI-BAG 50 ML IV SCH (23:06)
[2025-05-04] MEDS ORDERED: ATOR1TAB21 PO (23:21)
[2025-05-04] MEDS ORDERED: AMLO25TA PO (23:21)
[2025-05-04] MEDS ORDERED: HOME MED LIST COMPLETE! XX SCH (23:25)
[2025-05-05] VITALS (7 sets, daily range): BP systolic 102–170; BP diastolic 55–100; TEMP 97.1–100.2; O2SAT 91–95
[2025-05-05] MEDS: ACETAMINOPHEN *IV* 1,000 MG in IV 1 EA IV ONE (03:59)
[2025-05-05 06:00] LABS: PLATELET COUNT, AUTOMATED 311 10^3/uL (150-450)
[2025-05-05 06:28] LABS: ALT/SGPT 20.0 U/L (7.0-40); AST/SGOT 27.0 U/L (<34); CALCIUM LEVEL 7.2 MG/DL (8.3-10.6); CARBON DIOXIDE LEVEL 30.0 MMOL/L (20-31); CHLORIDE LEVEL 92.0 MMOL/L (98-107); CREATININE FOR GFR 1.24 MG/DL (0.55-1.30); GLOMERULAR FILTRATION RATE 45.4 (>39); POTASSIUM SERUM 3.5 MMOL/L (3.5-5.1); SODIUM LEVEL 132.0 MMOL/L (136-145)
[2025-05-05] MEDS: TIMOLOL MALEATE 0.5% OPHTH SOLN 5 ML OU SCH (09:40)
[2025-05-05] MEDS: MIRALAX *UNIT DOSE* 17 GM PACKET PO ONE (09:41)
[2025-05-05] MEDS: BRIMONIDINE 0.15% OPHTH SOLN 5 ML OU SCH (09:41)
[2025-05-05] MEDS: LATANOPROST 0.005% OPHTH SOLN 2.5 ML OU SCH (20:29)
[2025-05-06] VITALS (8 sets, daily range): BP systolic 104–149; BP diastolic 66–81; TEMP 96.3–97.7; O2SAT 92–96
[2025-05-06 06:24] LABS: BASO # 0.0 10^3/uL (0.0-0.2); BASO % 0.3 % (0.0-1.0); EOS # 0.1 10^3/uL (0.0-0.5); EOS % 1.5 % (0.0-3.0); LYMPH # 1.0 10^3/uL (1.5-5.0); LYMPH % 16.3 % (24.0-44.0); MONO # 1.1 10^3/uL (0.0-0.8); MONO % 17.9 % (2.0-8.0); NEUTROPHILS # 3.8 10^3/uL (1.5-8.5); NEUTROPHILS % 62.8 % (36.0-66.0); PLATELET COUNT, AUTOMATED 300 10^3/uL (150-450)
[2025-05-06 06:50] LABS: ALT/SGPT 14.0 U/L (7.0-40); AST/SGOT 18.0 U/L (<34); CALCIUM LEVEL 7.6 MG/DL (8.3-10.6); CARBON DIOXIDE LEVEL 28.0 MMOL/L (20-31); CHLORIDE LEVEL 98.0 MMOL/L (98-107); CREATININE FOR GFR 0.85 MG/DL (0.55-1.30); GLOMERULAR FILTRATION RATE 71.4 (>39); POTASSIUM SERUM 3.2 MMOL/L (3.5-5.1); SODIUM LEVEL 138.0 MMOL/L (136-145)
[2025-05-06] MEDS: KCL 10MEQ/100ML SWI (KRUN) 10 MEQ in IV 1 EA IV SCH (09:34)
[2025-05-06] MEDS ORDERED: HYDROmorphone HCL 2 MG/ML 1 ML VIAL As Ordered ONE (10:24)
[2025-05-06] MEDS ORDERED: ONDANSETRON 4MG/2ML VIAL As Ordered ONE (10:25)
[2025-05-06] MEDS ORDERED: dexAMETHasone 4 MG/ML 1 ML VIAL As Ordered ONE (10:25)
[2025-05-06] MEDS ORDERED: SUGAMMADEX SODIUM 200 MG/2 ML VIAL As Ordered ONE (10:25)
[2025-05-06] MEDS ORDERED: ROCURONIUM BROMIDE 50MG/5ML VIAL As Ordered ONE (10:25)
[2025-05-06] MEDS ORDERED: MIDAZOLAM INJ 2 MG/2 ML VIAL As Ordered ONE (10:25)
[2025-05-06] MEDS ORDERED: KETOROLAC 30 MG/ML 1 ML VIAL As Ordered ONE (10:25)
[2025-05-06] MEDS ORDERED: LIDOCAINE 2% 100 MG/5 ML SDV (FOR ANES.) As Ordered ONE (10:25)
[2025-05-06] MEDS ORDERED: SUCCINYLCHOLINE 100MG/5ML SYRINGE As Ordered ONE (12:17)
[2025-05-06] MEDS ORDERED: ACETAMINOPHEN 1000MG/100ML IV BAG As Ordered ONE (12:53)
[2025-05-06] MEDS ORDERED: PHENYLephrine 500MCG 5ML (100MCG/ML) SYRINGE As Ordered ONE (13:38)
[2025-05-06] MEDS ORDERED: ESMOLOL 100 MG/10 ML VIAL As Ordered ONE (13:56)
[2025-05-06] MEDS ORDERED: MORPHINE 4 MG/ML 1 ML VIAL IV PRN ×2 (16:10→17:50)
[2025-05-06] MEDS: ZOSYN 4.5GM VIAL As Ordered ONE (16:20)
[2025-05-06] MEDS: POTASSIUM CHLORIDE 10MEQ/100ML SWI As Ordered ONE (16:34)
[2025-05-06] MEDS: KCL 20MEQ IN D5/0.45NS 1000ML 1,000 ML IV SCH (17:00)
[2025-05-06] MEDS: LIDOCAINE 1% SDV 30 ML VIAL As Ordered ONE (17:24)
[2025-05-06] MEDS ORDERED: HYDROMORPHONE HCL 0.5 MG/0.5 ML SYRINGE IV PRN (17:50)
[2025-05-07] VITALS: BP 140/71; TEMP 97.4; O2SAT 98
[2025-05-07] MEDS: LOSARTAN 50 MG TABLET PO SCH (00:27)
[2025-05-07 04:00] VITALS: BP 113/71; TEMP 97.7; O2SAT 96
[2025-05-07 06:12] LABS: CALCIUM LEVEL 7.4 MG/DL (8.3-10.6); CARBON DIOXIDE LEVEL 25 MMOL/L (20-31); CHLORIDE LEVEL 102 MMOL/L (98-107); CREATININE FOR GFR 0.62 MG/DL (0.55-1.30); GLOMERULAR FILTRATION RATE > 90.0 (>39); POTASSIUM SERUM 4.8 MMOL/L (3.5-5.1); SODIUM LEVEL 137 MMOL/L (136-145)
[2025-05-07 07:14] LABS: BASO # 0.0 10^3/uL (0.0-0.2); BASO % 0.4 % (0.0-1.0); EOS # 0.0 10^3/uL (0.0-0.5); EOS % 0.5 % (0.0-3.0); LYMPH # 1.5 10^3/uL (1.5-5.0); LYMPH % 20.0 % (24.0-44.0); MONO # 1.2 10^3/uL (0.0-0.8); MONO % 16.3 % (2.0-8.0); NEUTROPHILS # 4.3 10^3/uL (1.5-8.5); NEUTROPHILS % 58.0 % (36.0-66.0); PLATELET COUNT, AUTOMATED 349 10^3/uL (150-450)
[2025-05-07] MEDS: PANTOPRAZOLE 40MG VIAL IV SCH (08:01)
[2025-05-07] MEDS: D5W/0.45% SODIUM CHLORIDE 1,000 ML IV SCH (08:56)
[2025-05-07 10:29] VITALS: BP 117/69; TEMP 97.5; O2SAT 97
[2025-05-07 12:00] VITALS: BP 153/88; TEMP 97.7; O2SAT 97
[2025-05-07 16:00] VITALS: BP 137/79; TEMP 97.6; O2SAT 97
[2025-05-07 20:21] VITALS: BP 126/73; TEMP 98.1; O2SAT 96
[2025-05-07] MEDS: PERCOCET 5MG/325MG TAB PO PRN (20:28)
[2025-05-07] MEDS: ATORVASTATIN 20 MG TAB PO SCH (20:31)
[2025-05-08] VITALS (7 sets, daily range): BP systolic 136–163; BP diastolic 64–85; TEMP 97.9–98.1; O2SAT 95–97
[2025-05-08 05:55] LABS: PLATELET COUNT, AUTOMATED 295 10^3/uL (150-450)
[2025-05-08 06:22] LABS: CALCIUM LEVEL 7.5 MG/DL (8.3-10.6); CARBON DIOXIDE LEVEL 28 MMOL/L (20-31); CHLORIDE LEVEL 101 MMOL/L (98-107); CREATININE FOR GFR 0.61 MG/DL (0.55-1.30); GLOMERULAR FILTRATION RATE > 90.0 (>39); MAGNESIUM LEVEL 1.8 MG/DL (1.8-2.4); POTASSIUM SERUM 3.7 MMOL/L (3.5-5.1); SODIUM LEVEL 136 MMOL/L (136-145)
[2025-05-08 06:40] LABS: ATYPICAL LYMPH 1 % (0-5); EOSINOPHILS 2 % (0-3); LYMPHOCYTES 29 % (16-44); METAMYELOCYTES 3 % (0-0); MONOCYTES 14 % (0-5); MYELOCYTES 1 % (0-0); NEUTROPHILS 50 % (28-66); PLATELET ESTIMATE NORMAL (NORMAL)
[2025-05-08] MEDS: ENOXAPARIN 40 MG/0.4 ML SYRINGE (J1650 PER 10MG) SC SCH (08:42)
[2025-05-09 04:00] VITALS: BP 160/91; TEMP 97.3; O2SAT 95
[2025-05-09 07:40] LABS: CALCIUM LEVEL 7.6 MG/DL (8.3-10.6); CARBON DIOXIDE LEVEL 30 MMOL/L (20-31); CHLORIDE LEVEL 101 MMOL/L (98-107); CREATININE FOR GFR 0.59 MG/DL (0.55-1.30); GLOMERULAR FILTRATION RATE > 90.0 (>39); POTASSIUM SERUM 3.8 MMOL/L (3.5-5.1); SODIUM LEVEL 139 MMOL/L (136-145)
[2025-05-09 12:00] VITALS: BP 114/82; TEMP 98.2; O2SAT 94
[2025-05-09] MEDS: SIMETHICONE 80MG CHEW TAB PO PRN (15:54)
[2025-05-09 19:39] VITALS: BP 131/78; TEMP 98.3; O2SAT 95
[2025-05-10 03:59] VITALS: BP 132/73; TEMP 98.1; O2SAT 97
[2025-05-10 05:59] LABS: PLATELET COUNT, AUTOMATED 321 10^3/uL (150-450)
[2025-05-10 06:19] LABS: CALCIUM LEVEL 7.7 MG/DL (8.3-10.6); CARBON DIOXIDE LEVEL 30 MMOL/L (20-31); CHLORIDE LEVEL 101 MMOL/L (98-107); CREATININE FOR GFR 0.68 MG/DL (0.55-1.30); GLOMERULAR FILTRATION RATE > 90.0 (>39); MAGNESIUM LEVEL 1.6 MG/DL (1.8-2.4); POTASSIUM SERUM 4.0 MMOL/L (3.5-5.1); SODIUM LEVEL 137 MMOL/L (136-145)
[2025-05-10] MEDS: MAG SULF 1GM/100ML (MAG RUN) 1 GM in IV 1 EA IV SCH (08:13)
[2025-05-10] MEDS ORDERED: OXYC-517 PO (11:14)
== END 2025-05-10 11:44 | disposition home health service (06) | DRG 336 ==
LOC: M ED 14:06 → M ED INP 18:30 → M MS4PR 05-05 00:35
PROVIDERS: ADMIT Internal Medicine; ATTEND Internal Medicine
PROC: 8E0W4CZ Robotic Assisted Procedure of Trunk Region, Percutaneous Endoscopic Approach (ICD-10-PCS; 2025-05-06)
PROC: 0DNU4ZZ Release Omentum, Percutaneous Endoscopic Approach (ICD-10-PCS; principal; 2025-05-06 12:00)
DX: K56.50 Intestinal adhesions [bands], unspecified as to partial versus complete obstruction (principal); N17.9 Acute kidney failure, unspecified; E87.1 Hypo-osmolality and hyponatremia; J98.11 Atelectasis; I10 Essential (primary) hypertension; E78.5 Hyperlipidemia, unspecified; H40.9 Unspecified glaucoma; M48.00 Spinal stenosis, site unspecified; M19.90 Unspecified osteoarthritis, unspecified site; E87.6 Hypokalemia; Z66 Do not resuscitate; Z79.899 Other long term (current) drug therapy; L89.152 Pressure ulcer of sacral region, stage 2; F39 Unspecified mood [affective] disorder